=== PATIENT | female | born 1965 | race Caucasian/White ===

== ENCOUNTER 2017-10-27 14:57 | Emergency (ER) | payer SELFPAY ==
[~2017-10-27 14:57] MED LIST: ACE3 PO; ALB18R INH; AMOX-559 PO; AZIT-18 PO; BUTA1CAP36 PO; CHOL100058 PO; CIPR-344 PO; CITA-137 PO; CLON0.5T66 PO; CODE118S5 PO; CYCL10TA29 PO; DIAZ-308 PO; DOXY-179 PO; ESTA2TAB PO; GABA-549 PO; IBUP800T37 PO; LOR5/325 PO; MELA3TAB45 PO; NAPR125O2 PO; NAPR500T31 PO; OMEP40CA48 PO; ONDA4TAB PO; OXYC-856 PO; OXYC-865 PO; PER PO; PRED20TA6 PO; PROM-110 PO; PROM25SU9 RC; PROM5SYR PO; RANI150C17 PO; TRAZ150T8 PO
--- NOTE | 2017-10-27 15:05 | ER Report ---
History and Physical Time Seen By MD: 15:05 HPI/ROS CHIEF COMPLAINT: Heel pain HISTORY OF PRESENT ILLNESS: This is a 51-year-old female who presents to the emergency department with right heel pain. Patient states that over the last several months she's had an increase in right heel pain and has been compensating with her left foot now she has developed some left heel pain as well. 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 Patient has no other complaints no fevers, chills, nausea, vomiting, diarrhea, chest pain or shortness of breath. No open wounds or lesions. Allergies: Coded Allergies: No Known Drug Allergies (Unverified , 10/27/17) Home Meds Active Scripts Metaxalone (SKELAXIN) 800 Mg Tablet, 800 MG PO TID Y for rn, #12 TAB 0 Refills Prov:ALEAH MARY [facility]- 10/27/17 Prednisone (PREDNISONE) 20 Mg Tablet, 20 MG PO BID, #10 TAB Prov:ALEAH MARY [facility]- 10/27/17 Ibuprofen (IBUPROFEN) 800 Mg Tablet, 800 MG PO Q8H@04,12,20, #30 TAB 0 Refills Prov:ARUNA LATHAM DO 09/13/16 Reported Medications Cholecalciferol (Vitamin D3) (VITAMIN D) 1,000 Unit Capsule, 1000 UNIT PO QDAY, CAPSULE 09/05/16 Melatonin (MELATONIN) 3 Mg Tablet.er, 3 MG PO QHS 09/05/16 Ranitidine Hcl (RANITIDINE HCL) 150 Mg Capsule, 150 MG PO TID, CAPSULE 03/31/16 Trazodone Hcl (TRAZODONE HCL) 150 Mg Tablet, 150 MG PO QHS 07/25/14 Discontinued Scripts Acetaminophen/Codeine (TYLENOL #3 (OR EQUIV)) 1 Ea Tab, 1 EA PO Q4-6H for PAIN, #40 TAB 0 Refills Prov:YEISONARUNA 09/13/16 Albuterol Sulfate (VENTOLIN HFA) 18 Gm Inh, 2 PUFF INH Q4-6H Y for SHORTNESS OF BREATH, #1 INH Prov:JAYDEN PETTIT [facility] 04/09/16 Past Medical/Surgical History Patient has a past medical and surgical history of meningitis, migraines, pneumonia, uses tobacco, Heidel hernia, right wrist fracture, thyroid disorder, hysterectomy, tubal ligation. Reviewed Nurses Notes: Yes Hx Smoking: Yes (1PPD) Smoking Status: Current: Every Day Smoker Hx Substance Use Disorder: No Hx Alcohol Use: Yes (RARE) Constitutional Vital Sign - Last 24 Hours 10/27/17 10/27/17 10/27/17 10/27/17 15:01 15:03 15:30 15:57 Temp 97.9 Pulse 97 83 Resp 20 B/P (MAP) 130/87 (101) 130/87 119/83 (95) Pulse Ox 93 91 O2 Delivery Room Air 10/27/17 10/27/17 10/27/17 10/27/17 16:00 16:27 16:30 16:35 Pulse 79 79 B/P (MAP) 126/66 (86) 137/93 (108) Pulse Ox 91 92 10/27/17 17:09 B/P (MAP) 144/106 (119) Physical Exam General appearance: Alert no distress. Respiratory: Chest is non tender, lungs are clear to auscultation. Cardiac: Regular rate and rhythm Musculoskeletal: Right calcaneus pain with palpation. No erythema or cellulitis noted. No crepitus. Mild left heel pain with palpation no crepitus or erythema noted. DIFFERENTIAL DIAGNOSIS: After history and physical exam differential diagnosis was considered for bone spur, stress fracture, plantar fasciitis and osteomyelitis. Medical Decision Making EKG/Imaging Imaging FOOT 3 VIEW LEFT HISTORY: calcaneus pain bilaterally COMPARISON: None FINDINGS: No evidence of acute fracture or dislocation. Bohler angle is well maintained. Base of the 5th metatarsal is intact. TMT joints are well aligned. Small plantar spur. IMPRESSION: 1. No acute osseous abnormality. 2. Small plantar spur. Report Dictated By: Kevin Monge MD at 10/27/2017 4:13 PM Report E-Signed By: Kevin Monge MD at 10/27/2017 4:14 PM WSN:[id number] FOOT 3 VIEW RIGHT HISTORY: calcaneus pain bilaterally COMPARISON: None FINDINGS: No evidence of acute fracture or dislocation. Bohler angle is well maintained. Base of the 5th metatarsal is intact. TMT joints are well aligned. Small plantar spur. IMPRESSION: 1. No acute osseous abnormality. 2. Small plantar spur. Report Dictated By: Kevin Monge MD at 10/27/2017 4:14 PM Report E-Signed By: Kevin Monge MD at 10/27/2017 4:14 PM WSN:[id number] ED Course/Re-evaluation ED Course The patient was admitted to room. A history physical obtained. Differential diagnoses were considered. A 3 view foot x-ray was obtained of the right and left feet. Was noted that the patient does have bone spurs to the calcaneus bilaterally. I did review these results with the patient and placed her on a short course of steroids as well as a muscle relaxer. Patient was instructed to follow-up with podiatry in the next 1-2 weeks. Patient was given one day off work. Patient was encouraged to return to the emergency department for any other concerns worsening symptoms. Patient was also instructed to follow-up with her primary care provider. Patient was in agreement with this plan of care and discharged home. Decision to Disposition Date: October 27, 2017 Decision to Disposition Time: 16:57 Depart Departure Latest Vital Signs Vital Signs Date Time Temp Pulse Resp B/P (MAP) Pulse Ox O2 Delivery O2 Flow Rate FiO2 10/27/17 17:09 144/106 (119) 10/27/17 16:35 79 92 10/27/17 15:03 97.9 20 Room Air Impression: Primary Impression: Bone spur of left foot Additional Impression: Bone spur of right foot Condition: Improved Disposition: HOME OR SELF-CARE Referrals: LOUISE YEPEZ DPCarlos New Scripts Metaxalone (SKELAXIN) 800 Mg Tablet 800 MG PO TID Y for rn, #12 TAB 0 Refills Prov: ALEAH MARY [employer] [facility]- 10/27/17 Prednisone (PREDNISONE) 20 Mg Tablet 20 MG PO BID, #10 TAB Prov: ALEAH MARY [employer]- 10/27/17 Departure Forms: ER Transition Record, Medications Reconciliation, Off Work/ School Form, School or Work Release?: Work Number of days to be released: 1 Patient Portal Information Patient Instructions: How to Give Foot Care (GEN) Additional Instructions: Drink plenty of water. Get plenty of rest. Take the medications as prescribed. Follow up with Podiatry for further evaluation of your feet. Return to the ED for any other concerns or worsening symptoms. Problem Qualifiers ALEAH MARY [employer] ASSIST[employer]-BC October 27, 2017 15:05
--- NOTE | 2017-10-27 16:18 | RADIOLOGY IMAGING REPORT ---
FACILITY: [facility] PATIENT NAME: Pia Angel : 1965 MR: [id number] V: [id number] EXAM DATE: ORDERING PHYSICIAN: ALEAH MARY TECHNOLOGIST: [place] [facility] [place] Patient: Pia Angel : 1965 Visit/Account:[id number] Date of Sevice: 10/27/2017 FOOT 3 VIEW RIGHT HISTORY: calcaneus pain bilaterally COMPARISON: None FINDINGS: No evidence of acute fracture or dislocation. Bohler angle is well maintained. Base of the 5th metatarsal is intact. TMT joints are well aligned. Small plantar spur. IMPRESSION: 1. No acute osseous abnormality. 2. Small plantar spur. Report Dictated By: Kevin Monge MD at 10/27/2017 4:14 PM Report E-Signed By: Kevin Monge MD at 10/27/2017 4:14 PM WSN:[id number]
--- NOTE | 2017-10-27 16:18 | RADIOLOGY IMAGING REPORT ---
FACILITY: [facility] PATIENT NAME: Pia Angel : 1965 MR: [id number] V: [id number] EXAM DATE: ORDERING PHYSICIAN: ALEAH MARY TECHNOLOGIST: Location: [facility] [place] Patient: Pia Angel : 1965 Visit/Account:[id number] Date of Sevice: 10/27/2017 FOOT 3 VIEW LEFT HISTORY: calcaneus pain bilaterally COMPARISON: None FINDINGS: No evidence of acute fracture or dislocation. Bohler angle is well maintained. Base of the 5th metatarsal is intact. TMT joints are well aligned. Small plantar spur. IMPRESSION: 1. No acute osseous abnormality. 2. Small plantar spur. Report Dictated By: Kevin Monge MD at 10/27/2017 4:13 PM Report E-Signed By: Kevin Monge MD at 10/27/2017 4:14 PM WSN:[id number]
[2017-10-27] MEDS ORDERED: PRED20TA6 PO (17:03)
[2017-10-27] MEDS ORDERED: META800T18 PO (17:03)
[2017-10-27 17:09] VITALS: BP 144/106
== END 2017-10-27 17:14 | disposition home or self-care (01) ==
LOC: ER 15:28
DX: M77.9 Enthesopathy, unspecified (principal)
CPT/HCPCS: 99282

== ENCOUNTER 2017-12-21 06:26 | Inpatient (IN) | payer SELFPAY ==
[~2017-12-21] VITALS: Ht 167.6 cm; Wt 100.2 kg
[~2017-12-21 06:26] MED LIST changes: +META800T18 PO
[2017-12-21] MEDS ORDERED: NS(*) 0.9% 1000 ML BAG 1,000 ML IV ONE ×2 (06:50→08:35)
[2017-12-21] MEDS ORDERED: ONDANSETRON 4 MG/2 ML VIAL IVP ONE ×3 (06:50→12:55)
[2017-12-21] MEDS ORDERED: MORPHINE 4 MG/ML SDV IVP ONE (07:35)
[2017-12-21] MEDS ORDERED: IOPAMIDOL 76% 100 ML INFUS BTL 100 ML ONE (07:50)
[2017-12-21 08:13] LABS: PLATELET COUNT, AUTOMATED 244 K/uL (150-450)
--- NOTE | 2017-12-21 08:30 | ER Report ---
History and Physical Time Seen By MD: 08:30 Hx. of Stated Complaint: patient states she has been having abdominal pain and vomiting since 0500. Allergies: Coded Allergies: No Known Drug Allergies (Unverified , 12/21/17) Home Meds Active Scripts Metaxalone (SKELAXIN) 800 Mg Tablet, 800 MG PO TID Y for rn, #12 TAB 0 Refills Prov:ALEAH MARY [facility]- 10/27/17 Reported Medications Cholecalciferol (Vitamin D3) (VITAMIN D) 1,000 Unit Capsule, 1000 UNIT PO QDAY, CAPSULE 09/05/16 Melatonin (MELATONIN) 3 Mg Tablet.er, 3 MG PO QHS 09/05/16 Ranitidine Hcl (RANITIDINE HCL) 150 Mg Capsule, 150 MG PO TID, CAPSULE 03/31/16 Trazodone Hcl (TRAZODONE HCL) 150 Mg Tablet, 150 MG PO QHS 07/25/14 Discontinued Scripts Prednisone (PREDNISONE) 20 Mg Tablet, 20 MG PO BID, #10 TAB Prov:ALEAH MARY [facility]- 10/27/17 Ibuprofen (IBUPROFEN) 800 Mg Tablet, 800 MG PO Q8H@04,12,20, #30 TAB 0 Refills Prov:ARUNA LATHAM DO 09/13/16 Hx Smoking: Yes (1PPD) Smoking Status: Current: Every Day Smoker Hx Substance Use Disorder: No Hx Alcohol Use: Yes (RARE) Constitutional Vital Sign - Last 24 Hours 12/21/17 12/21/17 12/21/17 12/21/17 06:30 06:31 07:14 07:19 Temp 98.1 Pulse 87 Resp 28 B/P (MAP) 162/91 (114) 126/96 (106) Pulse Ox 92 96 12/21/17 12/21/17 12/21/17 12/21/17 08:32 08:49 09:00 09:05 Pulse 66 70 B/P (MAP) 122/64 (83) 122/72 (89) Pulse Ox 98 96 12/21/17 12/21/17 12/21/17 09:30 10:00 10:05 Pulse 67 B/P (MAP) 103/78 (86) 141/102 (115) Pulse Ox 100 Intake and Output 12/21/17 12/21/17 12/22/17 14:59 22:59 06:59 Intake Total 1000 ml Balance 1000 ml Medical Decision Making Data Points Result Diagram: 12/21/17 0756 12/21/17 0756 Laboratory Hematology Test 12/21/17 07:56 12/21/17 08:34 12/21/17 12:00 Red Blood Count 5.50 M/uL (4.17-5.56) Mean Corpuscular Volume 83.7 fL (80.0-96.0) Mean Corpuscular Hemoglobin 28.7 pg (26.0-33.0) Mean Corpuscular Hemoglobin Concent 34.3 g/dL (32.0-36.0) Red Cell Distribution Width 14.4 % (11.5-14.5) Mean Platelet Volume 10.0 fL (7.2-11.1) Neutrophils (%) (Auto) 86.6 % (39.4-72.5) Lymphocytes (%) (Auto) 8.4 % (17.6-49.6) Monocytes (%) (Auto) 4.0 % (4.1-12.4) Eosinophils (%) (Auto) 0.6 % (0.4-6.7) Basophils (%) (Auto) 0.4 % (0.3-1.4) Nucleated RBC Relative Count (auto) 0.0 /100WBC Neutrophils # (Auto) 11.3 K/uL (2.0-7.4) Lymphocytes # (Auto) 1.1 K/uL (1.3-3.6) Monocytes # (Auto) 0.5 K/uL (0.3-1.0) Eosinophils # (Auto) 0.1 K/uL (0.0-0.5) Basophils # (Auto) 0.0 K/uL (0.0-0.1) Nucleated RBC Absolute Count (auto) 0.00 K/uL Peripheral Blood Smear No Y/N Sodium Level 146 mmol/L (137-145) Potassium Level 3.3 mmol/L (3.5-5.0) Chloride Level 107 mmol/L (98-107) Carbon Dioxide Level 23 mmol/L (22-31) Blood Urea Nitrogen 11 mg/dl (7-18) Creatinine 0.70 mg/dl (0.52-1.04) Glomerular Filtration Rate Calc > 60.0 Random Glucose 121 mg/dl (75-110) Calcium Level 10.0 mg/dl (8.4-10.2) Total Bilirubin 0.5 mg/dl (0.2-1.3) Aspartate Amino Transf (AST/SGOT) 24 U/L (0-35) Alanine Aminotransferase (ALT/SGPT) 21 U/L (0-56) Alkaline Phosphatase 93 U/L (0-126) Total Protein 7.4 g/dl (6.3-8.2) Albumin 4.3 g/dl (3.5-5.0) Lipase 78 U/L (23-300) Urine Color Yellow Urine Clarity Cloudy Urine pH 7.0 pH (4.8-9.5) Urine Specific Elim 1.024 Urine Protein Negative mg/dL (NEGATIVE) Urine Glucose (UA) Negative mg/dL (NEGATIVE) Urine Ketones Negative mg/dL (NEGATIVE) Urine Blood Negative (NEGATIVE) Urine Nitrite Negative (NEGATIVE) Urine Bilirubin Negative (NEGATIVE) Urine Urobilinogen Negative mg/dL (0.2-1.9) Urine Leukocyte Esterase Trace (NEGATIVE) Urine RBC 1 /HPF (0-2/HPF) Urine WBC 5 /HPF (0-5/HPF) Urine Squamous Epithelial Cells Many /LPF (</=FEW) Urine Amorphous Crystals Few /HPF Urine Bacteria Few /HPF (NONE-FEW) Urine Hyaline Casts Few /LPF (NONE-FEW) Urine Mucus Few /HPF (NONE-FEW) Lactate 1.6 mmol/L (0.7-2.1) Chemistry Test 12/21/17 07:56 12/21/17 08:34 12/21/17 12:00 White Blood Count 13.0 k/uL (4.5-11.0) Red Blood Count 5.50 M/uL (4.17-5.56) Hemoglobin 15.8 g/dL (12.0-16.0) Hematocrit 46.1 % (34.0-47.0) Mean Corpuscular Volume 83.7 fL (80.0-96.0) Mean Corpuscular Hemoglobin 28.7 pg (26.0-33.0) Mean Corpuscular Hemoglobin Concent 34.3 g/dL (32.0-36.0) Red Cell Distribution Width 14.4 % (11.5-14.5) Platelet Count 244 K/uL (150-450) Mean Platelet Volume 10.0 fL (7.2-11.1) Neutrophils (%) (Auto) 86.6 % (39.4-72.5) Lymphocytes (%) (Auto) 8.4 % (17.6-49.6) Monocytes (%) (Auto) 4.0 % (4.1-12.4) Eosinophils (%) (Auto) 0.6 % (0.4-6.7) Basophils (%) (Auto) 0.4 % (0.3-1.4) Nucleated RBC Relative Count (auto) 0.0 /100WBC Neutrophils # (Auto) 11.3 K/uL (2.0-7.4) Lymphocytes # (Auto) 1.1 K/uL (1.3-3.6) Monocytes # (Auto) 0.5 K/uL (0.3-1.0) Eosinophils # (Auto) 0.1 K/uL (0.0-0.5) Basophils # (Auto) 0.0 K/uL (0.0-0.1) Nucleated RBC Absolute Count (auto) 0.00 K/uL Peripheral Blood Smear No Y/N Glomerular Filtration Rate Calc > 60.0 Calcium Level 10.0 mg/dl (8.4-10.2) Total Bilirubin 0.5 mg/dl (0.2-1.3) Aspartate Amino Transf (AST/SGOT) 24 U/L (0-35) Alanine Aminotransferase (ALT/SGPT) 21 U/L (0-56) Alkaline Phosphatase 93 U/L (0-126) Total Protein 7.4 g/dl (6.3-8.2) Albumin 4.3 g/dl (3.5-5.0) Lipase 78 U/L (23-300) Urine Color Yellow Urine Clarity Cloudy Urine pH 7.0 pH (4.8-9.5) Urine Specific Elim 1.024 Urine Protein Negative mg/dL (NEGATIVE) Urine Glucose (UA) Negative mg/dL (NEGATIVE) Urine Ketones Negative mg/dL (NEGATIVE) Urine Blood Negative (NEGATIVE) Urine Nitrite Negative (NEGATIVE) Urine Bilirubin Negative (NEGATIVE) Urine Urobilinogen Negative mg/dL (0.2-1.9) Urine Leukocyte Esterase Trace (NEGATIVE) Urine RBC 1 /HPF (0-2/HPF) Urine WBC 5 /HPF (0-5/HPF) Urine Squamous Epithelial Cells Many /LPF (</=FEW) Urine Amorphous Crystals Few /HPF Urine Bacteria Few /HPF (NONE-FEW) Urine Hyaline Casts Few /LPF (NONE-FEW) Urine Mucus Few /HPF (NONE-FEW) Lactate 1.6 mmol/L (0.7-2.1) Urinalysis Test 12/21/17 08:34 Urine Color Yellow Urine Clarity Cloudy Urine pH 7.0 pH (4.8-9.5) Urine Specific Elim 1.024 Urine Protein Negative mg/dL (NEGATIVE) Urine Glucose (UA) Negative mg/dL (NEGATIVE) Urine Ketones Negative mg/dL (NEGATIVE) Urine Blood Negative (NEGATIVE) Urine Nitrite Negative (NEGATIVE) Urine Bilirubin Negative (NEGATIVE) Urine Urobilinogen Negative mg/dL (0.2-1.9) Urine Leukocyte Esterase Trace (NEGATIVE) Urine RBC 1 /HPF (0-2/HPF) Urine WBC 5 /HPF (0-5/HPF) Urine Squamous Epithelial Cells Many /LPF (</=FEW) Urine Amorphous Crystals Few /HPF Urine Bacteria Few /HPF (NONE-FEW) Urine Hyaline Casts Few /LPF (NONE-FEW) Urine Mucus Few /HPF (NONE-FEW) ED Course/Re-evaluation ED Course Intractable nausea and vomiting Decision to Disposition Date: Dec 21, 2017 Decision to Disposition Time: 14:04 Depart Departure Latest Vital Signs Vital Signs Date Time Temp Pulse Resp B/P (MAP) Pulse Ox O2 Delivery O2 Flow Rate FiO2 12/21/17 10:05 67 100 12/21/17 10:00 141/102 (115) 12/21/17 06:31 98.1 28 Impression: Primary Impression: Nausea & vomiting Condition: Improved Disposition: Admitted from ER Problem Qualifiers Primary Impression: Nausea & vomiting Vomiting type: unspecified Vomiting Intractability: intractable Qualified Codes: R11.2 - Nausea with vomiting, unspecified VIKKI BOSWELL MD Dec 21, 2017 08:30
--- NOTE | 2017-12-21 08:44 | RADIOLOGY IMAGING REPORT ---
FACILITY: [facility] PATIENT NAME: Pia Angel : 1965 MR: [id number] V: [id number] EXAM DATE: ORDERING PHYSICIAN: VIKKI BOSWELL [place]CHN[place] [facility] [place] : 1965 Visit/Account:[id number] Date of Sevice: 12/21/2017 ABDOMEN/PELVIS WITH CONTRAST HISTORY: Diffuse abdominal pain TECHNIQUE: CT abdomen and pelvis with intravenous contrast. One of the following dose optimization techniques was utilized in the performance of this exam: Autom ated exposure control; adjustment of the mA and/or kV according to the patient's size; or use of an i terative reconstruction technique. Specific details can be referenced in the facility's radiology C T exam operational policy. CONTRAST: 100 mL Isovue-[id number]. COMPARISON: CT dated June 29, 2016. FINDINGS: Visualized lung bases: Small hiatal hernia. Otherwise negative. Hepatobiliary: Negative. Spleen: Negative. Adrenals: Left adrenal nodule measuring approximately 3.3 x 1.9 cm, grossly unchanged when measured in the same fashion. While this lesion demonstrated indeterminant density, appearance and stability i s most compatible with a benign adenoma. Pancreas: Negative. Kidneys/: Subcentimeter hypodensity within the right kidney which is too small to characterize how ever grossly unchanged and statistically represents a simple cyst. Interval hysterectomy. Ovaries are not visualized. No adnexal mass. GI: Minimal wall thickening of the transverse and descending colon which is favored related to under distention.. Appendix is unremarkable. Vessels/spaces/nodes: Negative. Bones/soft tissues: Mild degenerative changes within the sacroiliac joints. Moderate degenerative d isc disease at L5-S1. IMPRESSION: 1. No acute findings. Appendix is unremarkable. 2. Minimal wall thickening of the transverse and descending colon which is favored related to underdi stention. 3. Additional incidental/chronic findings, as above. Report Dictated By: Winston Mark MD at 12/21/2017 8:34 AM Report E-Signed By: Winston Mark MD at 12/21/2017 8:41 AM WSN:[id number]
[2017-12-21] MEDS ORDERED: LORazepam 2 MG/ML VIAL IVP ONE (10:00)
[2017-12-21] MEDS ORDERED: MAG HYD/AL HYD/SIMETH 30ML UDC PO ONE (14:30)
[2017-12-21] MEDS ORDERED: LIDOCAINE 2% VISC SLN 15ML UDC PO ONE (14:30)
[2017-12-21] MEDS ORDERED: ATRO/SCOPOL/HYOSCY/PB 5 ML ELX PO ONE (14:30)
[2017-12-21 14:53] VITALS: BP 114/66
[2017-12-21 15:45] VITALS: BP 100/59
[2017-12-21] MEDS ORDERED: MORPHINE 4 MG/ML SDV IVP PRN (15:50)
[2017-12-21] MEDS ORDERED: NAPR500T31 PO (15:55)
[2017-12-21] MEDS ORDERED: TRAZ-156 PO (15:55)
[2017-12-21] MEDS ORDERED: GABA-549 PO (15:55)
[2017-12-21] MEDS ORDERED: METH-284 PO (15:55)
[2017-12-21] MEDS ORDERED: METOPROLOL TART 5 MG/5 ML VIAL IVP ONE (16:05)
[2017-12-21] MEDS ORDERED: HYOSCYAMINE SULF*0.125 MG SUBL SL PRN (16:05)
[2017-12-21] MEDS: PROMETHAZINE 25 MG/ML 1 ML AMP IVP PRN (16:06)
[2017-12-21] MEDS ORDERED: DIAZEPAM 50 MG/10 ML MDV IVP PRN (16:10)
[2017-12-21] MEDS ORDERED: NS(*) 0.9% 1000 ML BAG 1,000 ML IV PRN (16:10)
[2017-12-21] MEDS: PANTOPRAZOLE SOD(*)40 MG VIAL 80 MG in NS(*) 0.9% 100 ML BAG 100 ML IV SCH (16:52)
--- NOTE | 2017-12-21 16:58 | History & Physical ---
History of Present Illness Chief Complaint The patient is a 52 year old female with PMH significant for GERD and small hiatal hernia who presents with severe epigastric abdominal pain radiating into her back since 5am today. History of Present Illness The patient has a history of GERD and hiatal hernia and takes Zantac 150mg tid. She also has arthritis and takes Naproxen 500mg twice daily. She states she has taken this consistently for a couple of years. She denies any previous history of peptic ulcer disease. She is a 1 ppd smoker. She rarely drinks alcohol. She does not know her FH as she is adopted. The patient states that last evening she was in her usual state of health. She woke up this am with severe midepigastric abdominal pain and back pain. This was associated with nausea and vomiting. She denies fever or chills. She denies hematemesis. She could do nothing to ease the pain so presented to [facility] this am for further evaluation. In the ER, the patient was given IV morphine and Zofran with improvement of her symptoms. Once these medications wore off, her symptoms recurred. CT of the abdomen and pelvis was unremarkable for acute issue. Liver, gallbladder and pancreas were normal. CBC showed mild elevation of the WBC with a left shift. Lipase was negative. The patient was recommended for admission for further evaluation and treatment. History Problems: (1) Hiatal hernia Status: Chronic (2) History of pneumonia Status: Resolved (3) Tobacco use Status: Chronic (4) COPD (chronic obstructive pulmonary disease) Status: Chronic (5) Daily headache Status: Chronic (6) Migraines Status: Chronic (7) Hx of meningitis Status: Resolved (8) Hyperthyroidism Status: Chronic (9) Dyssomnia Status: Chronic (10) Degenerative arthritis Status: Chronic (11) Degenerative disc disease at L5-S1 level Status: Chronic (12) Adrenal adenoma Status: Chronic Comment: By CT. (13) GERD (gastroesophageal reflux disease) Status: Chronic (14) Right wrist fracture Status: Resolved (15) History of hysterectomy Status: Resolved (16) History of tubal ligation Status: Resolved Home Meds Reported Medications Gabapentin (GABAPENTIN) 300 Mg Capsule, 600 MG PO BID, CAPSULE 12/21/17 Naproxen (NAPROXEN) 500 Mg Tablet, 500 MG PO BIDBS, TAB 12/21/17 Trazodone Hcl (TRAZODONE HCL) 50 Mg Tablet, 150 MG PO QHS 12/21/17 Methimazole (METHIMAZOLE) 10 Mg Tablet, 10 MG PO Q72H 12/21/17 Cholecalciferol (Vitamin D3) (VITAMIN D) 1,000 Unit Capsule, 1000 UNIT PO QDAY, CAPSULE 09/05/16 Melatonin (MELATONIN) 3 Mg Tablet.er, 3 MG PO QHS 09/05/16 Ranitidine Hcl (RANITIDINE HCL) 150 Mg Capsule, 150 MG PO TID, CAPSULE 03/31/16 Discontinued Reported Medications Trazodone Hcl (TRAZODONE HCL) 150 Mg Tablet, 150 MG PO QHS 07/25/14 Discontinued Scripts Metaxalone (SKELAXIN) 800 Mg Tablet, 800 MG PO TID Y for rn, #12 TAB 0 Refills Prov:[facility]AH [facility]- 10/27/17 Prednisone (PREDNISONE) 20 Mg Tablet, 20 MG PO BID, #10 TAB Prov:[facility]AH [facility]- 10/27/17 Ibuprofen (IBUPROFEN) 800 Mg Tablet, 800 MG PO Q8H@04,12,20, #30 TAB 0 Refills Prov:ARUNA LATHAM DO 09/13/16 Allergies: Coded Allergies: No Known Drug Allergies (Unverified , 12/21/17) Patient History: Patient reports no known family medical history. 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 She is adopted so does not know her medical history. Hx Smoking: Yes (1PPD) Smoking Status: Current: Every Day Smoker Caffeine Intake: Coffee, Soda Caffeine/Cups Per Day: 2-3 cups per day Hx Alcohol Use: Yes (RARE) Alcohol Use: Occassional Hx Substance Use Disorder: No Social Drug Use: Never History of IV Drug Use: No Review of Systems All Systems Reviewed/Normal: Yes, Except as Noted Constitutional: No Fever, No Chills Cardiovascular: No Chest Pain Respiratory: No Shortness of Breath Gastrointestinal: Nausea, Vomiting, Abdominal Pain Genitourinary: No Dysuria Musculoskeletal: Pain (Mid back in center. Associated with abdominal pain.) Psychiatric: Other (Dyssomnia on medication.) Exam Vital Signs Vital Signs Date Time Temp Pulse Resp B/P (MAP) Pulse Ox O2 Delivery O2 Flow Rate FiO2 12/21/17 16:24 51 8 98 Nasal Cannula 3.0 12/21/17 15:45 100/59 (73) 12/21/17 14:53 98.4 General Appearance: Alert, Awake, Other (In distress. Restless and unable to hold still due to pain.) Neuro: No Gross deficits Eyes: PERRLA Cardiovascular: Regular Rate and Rhythm Respiratory: Clear to Auscultation GI: Other (Soft, nondistended. Tender in the midepigastrium to palpation without palpable mass. ) Lymph: Cervical Nodes Benign Extremities: Warm, Perfused Integumentary: Skin Intact without Lesion / Mass, Other (Tattoos.) Psych: Appropriate Mood & Affect Medical Decision Making Data Points Result Diagram: 12/21/1775512/21/17755 Item Value Date Time Lactate 4.5 mmol/L *H 12/21/17 0756 Lactate 1.6 mmol/L 12/21/17 1200 Neutrophils (%) (Auto) 86.6 % H 12/21/17 0756 Lymphocytes (%) (Auto) 8.4 % L 12/21/17 0756 Monocytes (%) (Auto) 4.0 % L 12/21/17 0756 Eosinophils (%) (Auto) 0.6 % 12/21/17 075 Basophils (%) (Auto) 0.4 % 12/21/17755 Nucleated RBC Relative Count (auto) 0.0 /100WBC 12/21/17 0756 Neutrophils # (Auto) 11.3 K/uL H 12/21/17 0756 Lymphocytes # (Auto) 1.1 K/uL L 12/21/17 0756 Monocytes # (Auto) 0.5 K/uL 12/21/17 0756 Eosinophils # (Auto) 0.1 K/uL 12/21/17 0756 Basophils # (Auto) 0.0 K/uL 12/21/17 075 Nucleated RBC Absolute Count (auto) 0.00 K/uL 12/21/17 075 Peripheral Blood Smear No Y/N 12/21/17 075 Urine Color Yellow 12/21/17 0834 Urine Clarity Cloudy 12/21/17 0834 Urine pH 7.0 pH 12/21/17 0834 Urine Specific Mchenry 1.024 12/21/17 0834 Urine Protein Negative mg/dL 12/21/17 0834 Urine Glucose (UA) Negative mg/dL 12/21/17 0834 Urine Ketones Negative mg/dL 12/21/17 0834 Urine Blood Negative 12/21/17 08 Urine Nitrite Negative 12/21/17 08 Urine Bilirubin Negative 12/21/17 0834 Urine Urobilinogen Negative mg/dL 12/21/17 0834 Urine Leukocyte Esterase Trace H 12/21/17 0834 Urine RBC 1 /HPF 12/21/17 0834 Urine WBC 5 /HPF 12/21/17 0834 Urine Squamous Epithelial Cells Many /LPF H 12/21/17 0834 Urine Amorphous Crystals Few /HPF 12/21/17 0834 Urine Bacteria Few /HPF 12/21/17 0834 Urine Hyaline Casts Few /LPF 12/21/17 0834 Urine Mucus Few /HPF 12/21/17 0834 EKG / Imaging Imaging FACILITY: [facility] PATIENT NAME: Pia Angel : 1965 MR: [id number] V: [id number] EXAM DATE: ORDERING PHYSICIAN: VIKKI BOSWELL TECHNOLOGIST: Location: [facility] Patient: Pia Angel : 1965 Visit/Account:[id number] Date of Sevice: 12/21/2017 ABDOMEN/PELVIS WITH CONTRAST HISTORY: Diffuse abdominal pain TECHNIQUE: CT abdomen and pelvis with intravenous contrast. One of the following dose optimization techniques was utilized in the performance of this exam: Automated exposure control; adjustment of the mA and/ or kV according to the patient's size; or use of an iterative reconstruction technique. Specific details can be referenced in the facility's radiology CT exam operational policy. CONTRAST: 100 mL Isovue-370. COMPARISON: CT dated June 29, 2016. FINDINGS: Visualized lung bases: Small hiatal hernia. Otherwise negative. Hepatobiliary: Negative. Spleen: Negative. Adrenals: Left adrenal nodule measuring approximately 3.3 x 1.9 cm, grossly unchanged when measured in the same fashion. While this lesion demonstrated indeterminant density, appearance and stability is most compatible with a benign adenoma. Pancreas: Negative. Kidneys/: Subcentimeter hypodensity within the right kidney which is too small to characterize however grossly unchanged and statistically represents a simple cyst. Interval hysterectomy. Ovaries are not visualized. No adnexal mass. GI: Minimal wall thickening of the transverse and descending colon which is favored related to underdistention.. Appendix is unremarkable. Vessels/spaces/nodes: Negative. Bones/soft tissues: Mild degenerative changes within the sacroiliac joints. Moderate degenerative disc disease at L5-S1. IMPRESSION: 1. No acute findings. Appendix is unremarkable. 2. Minimal wall thickening of the transverse and descending colon which is favored related to underdistention. 3. Additional incidental/chronic findings, as above. Report Dictated By: Winston Mark MD at 12/21/2017 8:34 AM Report E-Signed By: Winston Mark MD at 12/21/2017 8:41 AM [id number] Assessment and Plan Problems: (1) Acute epigastric pain Status: Acute Assessment & Plan: The patient has severe epigastric pain radiating through to her back with negative CT of the abdomen and normal lipase. Suspect peptic ulcer. Will place on Protonix gtt. Will order H. pylori. Will treat acute pain with IV morphine and use Zofran and Phenergan for nausea. Consider upper GI or endoscopy once her pain is controlled. (2) Intractable nausea and vomiting Status: Acute Assessment & Plan: Will treat with IV fluids and antiemetics. (3) COPD (chronic obstructive pulmonary disease) Status: Chronic Assessment & Plan: Will place on oxygen to keep saturations 90% or greater. (4) Hyperthyroidism Status: Chronic Assessment & Plan: She takes methimazole 10mg q 72 hours and took a dose last evening. Will restart when able to take orals. (5) Dyssomnia Status: Chronic Assessment & Plan: She takes OTC melatonin and Trazodone 150mg at home. (6) Degenerative arthritis Status: Chronic Assessment & Plan: She takes Naproxen 500mg bid at home. (7) GERD (gastroesophageal reflux disease) Status: Chronic Assessment & Plan: She is on chronic Zantac 150mg tid. (8) Tobacco use Status: Chronic Assessment & Plan: The patient smokes 1 ppd. Will offer nicotine replacement. Time Spent on Plan of Care: < 30 min Venous Thromboembolism VTE Risk Physician Assess for VTE Risk: Yes Antithrombotics Is Pt On Any Antithrombotics?: Yes Exam Sepsis Risk: Sepsis Risk Problem Qualifiers (1) Intractable nausea and vomiting: Vomiting type: unspecified Qualified Codes: R11.2 - Nausea with vomiting, unspecified POLO MALONE MD Dec 21, 2017 16:58
[2017-12-21] MEDS ORDERED: PANTOPRAZOLE SOD(*)40 MG VIAL 80 MG in NS(*) 0.9% 100 ML BAG 100 ML IVPB ONE (17:00)
[2017-12-21 19:20] VITALS: BP 104/69
[2017-12-21] MEDS ORDERED: KCL/NS* 20 MEQ/1000 ML PREMIX 1,000 ML IV SCH (20:42)
[2017-12-21] MEDS: MORPHINE 2 MG/ML SYR IVP PRN (21:15)
[2017-12-21] MEDS: MAG HYD/AL HYD/SIMETH 30ML UDC PO PRN (21:50)
[2017-12-21] MEDS ORDERED: NICOTINE CARTRIDGE 1 EA PO PRN (22:15)
[2017-12-21] MEDS ORDERED: NICOTINE INH SYSTEM 10 MG/INH INH ONE (22:16)
[2017-12-21 22:46] VITALS: BP 103/65
[2017-12-21] MEDS ORDERED: METHIMAZOLE 10 MG TAB PO ONE (23:25)
[2017-12-22] MEDS: PANTOPRAZOLE SOD(*)40 MG VIAL 80 MG in NS(*) 0.9% 100 ML BAG 100 ML IV SCH (03:11)
[2017-12-22 03:12] VITALS: BP 103/67
[2017-12-22] MEDS: PROMETHAZINE 25 MG/ML 1 ML AMP IVP PRN ×3 (04:22→16:01)
[2017-12-22 07:14] LABS: PLATELET COUNT, AUTOMATED 220 K/uL (150-450)
[2017-12-22] MEDS: MORPHINE 2 MG/ML SYR IVP PRN ×3 (07:15→20:59)
[2017-12-22 07:21] VITALS: BP 153/89
[2017-12-22] MEDS ORDERED: NICOTINE INH SYSTEM 10 MG/INH INH PRN (08:05)
[2017-12-22] MEDS ORDERED: ONDANSETRON 4 MG/2 ML VIAL IVP PRN (08:20)
--- NOTE | 2017-12-22 09:20 | Hospitalist Progress Note ---
Subjective Progress Notes Subjective Still having nausea with dry heaving and stomach/back pain. She has been very tearful with staff. Physical Exam Vital Signs Date Time Temp Pulse Resp B/P (MAP) Pulse Ox O2 Delivery O2 Flow Rate FiO2 12/22/17 07:22 98 12/22/17 07:21 98.3 67 20 153/89 (110) Room Air 12/22/17 03:12 1.0 General Appearance: Other (She awoke easily and appeared to be resting comfortably when asleep. Upon awakening, she appears a bit more uncomfortable) GI: Soft and Non-Tender (Non-distended) Result Diagram: 12/22/17 0652 12/22/1752 Assessment and Plan Problems: (1) Acute epigastric pain Status: Acute Assessment & Plan: The patient has severe epigastric pain radiating through to her back with negative CT of the abdomen and normal lipase. She has a benign abdominal exam. Suspect peptic ulcer. H. pylori negative. She was initially on a Protonix gtt, and will switch to IV bid. Will add Carafate. Treating pain with IV morphine and use Zofran and Phenergan for nausea. Consider upper GI or endoscopy once her pain is controlled. (2) Intractable nausea and vomiting Status: Acute Assessment & Plan: See above. (3) COPD (chronic obstructive pulmonary disease) Status: Chronic Assessment & Plan: Currently, on oxygen to keep saturations 90% or greater. (4) Hyperthyroidism Status: Chronic Assessment & Plan: She takes methimazole 10mg // and 5mg ///, which has been continued (5) Dyssomnia Status: Chronic Assessment & Plan: She takes OTC melatonin and Trazodone 150mg at home. (6) Degenerative arthritis Status: Chronic Assessment & Plan: She takes Naproxen 500mg bid at home, which has been stopped. (7) GERD (gastroesophageal reflux disease) Status: Chronic Assessment & Plan: She is on chronic Zantac 150mg tid. (8) Tobacco use Status: Chronic Assessment & Plan: The patient smokes 1 ppd. Will offer nicotine replacement. Exam Sepsis Risk: No Definite Risk Problem Qualifiers (1) Intractable nausea and vomiting: Vomiting type: unspecified Qualified Codes: R11.2 - Nausea with vomiting, unspecified RUBI FLORES MD Dec 22, 2017 09:20
[2017-12-22] MEDS: SUCRALFATE 1 GM TAB PO SCH ×4 (09:33→20:47)
[2017-12-22] MEDS: PANTOPRAZOLE SOD 40 MG IV VIAL IVP SCH ×2 (09:33→20:47)
[2017-12-22 10:53] VITALS: Ht 167.6 cm; Wt 100.2 kg
--- NOTE | 2017-12-22 11:07 | Medical Nutrition Therapy ---
Nutrition Anthropometrics Height (Inches): 66.00 Height (Calculated Centimeters: 167.398054 Weight (Pounds): 221 Weight (Calculated Kilograms): 100.244 Garry Nutrition Score: Adequate Garry Nutrition Risk Score: 21 Dietary Referral Nutrition Risk Factors: Nutrition Risk Comment: Physical Findings Physical Appearance: Obese BMI 30-39 Skin Appearance Skin Appearance: Edema Edema Location Modifier: Edema Location: Type of Edema: Degree of Edema: Gastrointestinal Symptoms GI Symtoms: Nausea, Appetite Changes Tube Present: Bowel Sounds: Recent Bowel Pattern: Stool Characteristics: Nutritional Diagnosis Nutritional Risk Acuity 2: GI Malabsorption Nutritional Risk Acuity 3: Nausea, GERD Past Medical History: GERD, hiatal hernia, COPD, migraines, hyperthyroid Nutritional Acuity: 2-Moderate Nutrition Diagnosis: Altered GI Function Nutrition Etiology: Malabsorption/Intolerance Nutrition Problem/Etiology/Sym: Altered GI function related to malabsorption as evidenced by epigastric pain and N/V. Adjusted Energy Requirement Re: 1840 ([id number] (HB x 1.3-1.5)) Protein Requirement: 80 Fluid Requirement: 1840 Diet Type: Clear Liquids Nutrition Intervention: Incr diet as tolerated Nutrition Monitoring & Eval RD Patient Assessment Time: [address] Assessment Type: RD Assessment Patient Nutrition Acuity: 2-Moderate Follow Up Date: Dec 25, 2017 Nutritional Comment: 12/22 Pt admitted with epigastric pain and intractable N/V. suspecting peptic ulcer and may do endoscopy when approriate. Pt still experiencing dry heaving. Currently on CL diet with intake of 10% of one meal. Notable labs include K 3.1, glc 116, tot pro 6 and alb 3.4. BMI in obese category. Will cont to monitor clinical progression and diet advancement. -THADDEUS GORDON Dec 22, 2017 11:07
[2017-12-22 11:59] VITALS: BP 123/63
[2017-12-22] MEDS: KCL/NS* 20 MEQ/1000 ML PREMIX 1,000 ML IV SCH (13:45)
[2017-12-22 16:02] VITALS: BP 145/77
[2017-12-22] MEDS ORDERED: SCOPOLAMINE 1.5 MG PATCH TD PRN (16:45)
[2017-12-22] MEDS ORDERED: PATCH REMOVAL 1 EA TP PRN (17:05)
[2017-12-22 19:15] VITALS: BP 154/84
[2017-12-22] MEDS: MAG HYD/AL HYD/SIMETH 30ML UDC PO PRN (20:58)
[2017-12-22] MEDS ORDERED: METHIMAZOLE 10 MG TAB PO SCH (21:00)
[2017-12-22 22:48] VITALS: BP 136/87
[2017-12-23] MEDS: MORPHINE 2 MG/ML SYR IVP PRN ×3 (01:58→23:52)
[2017-12-23 03:18] VITALS: BP 143/73
[2017-12-23] MEDS: KCL/NS* 20 MEQ/1000 ML PREMIX 1,000 ML IV SCH ×2 (03:18→23:53)
--- NOTE | 2017-12-23 05:05 | CONSULTATION ---
EVENT DATE: December 22, 2017 CONSULTING PHYSICIAN Lyssa Mccarthy MD CHIEF COMPLAINT Intractable nausea and vomiting associated with abdominal pain. HISTORY OF PRESENT ILLNESS Pia reports that she awakened yesterday to go to work and started having vomiting. Further, she reports subjective chills but no fever. When this persisted, she presented to [facility]. She states that she has experienced ongoing nausea and vomiting since she was admitted, improved somewhat with the medications, both pain and nausea, but the nausea consistently recurs when the medication wears off. The patient does not have blood in her vomitus. She has not had bloody diarrhea or stools. Her pain in the epigastrium occurs in a band-like fashion across her upper abdomen. Thus far, her diagnostic workup has been fairly unremarkable, but the patient persists with her symptoms. The patient does have a history of a hiatal hernia but no peptic ulcer disease according to her. Ranitidine has been prescribed to her for her hiatal hernia per her assertion. She does take Naprosyn daily for arthritis. She did have blood in her stool four months ago, and was due to be scheduled for a colonoscopy in the near future since she turned 52. The patient denies diarrhea or change in her bowl habits. She has not had any food intolerances. No one else in the family is sick. ALLERGIES No known drug allergies. CURRENT MEDICATIONS 1. Naprosyn. 2. Ranitidine. 3. Melatonin. 4. Gabapentin 5. Vitamin D. PAST MEDICAL HISTORY Significant for hiatal hernia, arthritis and tobacco use. PAST HOSPITALIZATIONS In 2008 for meningitis, 2010 as well as 2013 for pneumonia. PAST SURGICAL HISTORY section, hysterectomy with her ovaries out. No abnormal reactions to anesthesia. No abnormal bleeding or clotting tendencies. No blood thinners except Naprosyn. 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 She lives at home with her son. She does smoke daily. REVIEW OF SYSTEMS Significant for arthritis, sleep disturbances, chills as well as fatigue. Otherwise, her 12-system review is negative. PHYSICAL EXAMINATION GENERAL: The patient is rocking in the bed and obviously uncomfortable. VITAL SIGNS: Temp is 99.1, blood pressure 123/63, pulse 64, respirations 14, pulse ox 94%. HEAD: Normocephalic. OROPHARYNX: Dry mucous membranes. CHEST: Symmetrical expansion with respiration. LUNGS: Clear to auscultation. ABDOMEN: Obese, non tender, without palpable masses, without guarding or rebound, limited somewhat by the size of her abdomen. Pfannenstiel scar, positive bowel sounds, hypoactive. BACK: Symmetrical without deformity. EXTREMITIES: Without cyanosis, clubbing or edema. NEUROLOGICAL: Grossly intact, awake, alert and oriented. SKIN: Tattoos over her skin surface, also acneiform changes at the top of her back. LABORATORY AND RADIOGRAPHIC DATA White blood count now at 16.4. Lipase is within normal limits as are liver function test. Troponin is within normal limits. CT scan of the abdomen is unremarkable for acute disease. Appendix appears to be normal, as does pancreas and gallbladder. Mild thickening of the transverse colon, but doubt this is of significance per radiology report. ANALYSIS AND PLAN Intractable nausea and vomiting: Differential diagnosis considerations are myriad and include PUD, gallbladder disease and pancreatitis among other intra abdominal pathologies. Many of these are not likely in light of her clinical picture. Her symptoms are not responsive to Phenergan and Zofran. I would recommend trying scopolamine, which I have ordered. If the patient persists with nausea and vomiting, I would insert recommend nasogastric tube insertion which I have ordered. The patient probably needs to undergo EGD. I will communicate this to the surgeon coming pulmonology technician tomorrow and leave that decision to his medical judgement and discretion. Also, possibility is that the thickening of the colon wall could represent colitis, which might account for her elevated white blood count although I would expect diarrhea and blood with her stools. It is not clear to me why she is having persistent nausea and vomiting at this time. I would also recommend repeating CBC in the morning MTDD
[2017-12-23] MEDS: SUCRALFATE 1 GM TAB PO SCH ×4 (05:59→20:47)
[2017-12-23 06:25] LABS: PLATELET COUNT, AUTOMATED 197 K/uL (150-450)
[2017-12-23 07:47] VITALS: BP 124/74
[2017-12-23] MEDS ORDERED: KCL (*) 20 MEQ/100 ML PREMIX 100 ML IV ONE ×2 (08:30→14:50)
--- NOTE | 2017-12-23 08:39 | Hospitalist Progress Note ---
Subjective Progress Notes Subjective She reports she has not vomited in three hours, which is an improvement according to the patient. She still has complaints of pain. Patient Complains of: Cardiovascular: No: Chest Pain Respiratory: No: Shortness of Breath Gastrointestinal: Nausea, Vomiting Physical Exam Vital Signs Date Time Temp Pulse Resp B/P (MAP) Pulse Ox O2 Delivery O2 Flow Rate FiO2 12/23/17 07:47 94 Room Air 12/23/17 07:47 98.2 74 20 124/74 (91) 12/22/17 03:12 1.0 Intake and Output 12/24/17 06:59 # Voids 1 General Appearance: Alert, Awake, No Acute Distress Neuro: No Gross deficits Cardiovascular: Regular Rate and Rhythm Respiratory: No Respiratory Distress, Clear to Auscultation GI: Other (Tenderness noted throughout abdomen) Psych: Alert & Oriented X3, Appropriate Mood & Affect Result Diagram: 12/23/1751312/23/17513 Assessment and Plan Problems: (1) Acute epigastric pain Status: Acute Assessment & Plan: The patient has severe epigastric pain radiating through to her back with negative CT of the abdomen and normal lipase. She has a benign abdominal exam. Suspect peptic ulcer. H. pylori negative. She was initially on a Protonix gtt, and will switch to IV bid. Will add Carafate. Treating pain with IV morphine and use Zofran and Phenergan for nausea. Consider upper GI or endoscopy once her pain is controlled. We will add potassium replacements to IV today. We will await surgeons advice for possible EGD. (2) Intractable nausea and vomiting Status: Acute Assessment & Plan: See above. (3) COPD (chronic obstructive pulmonary disease) Status: Chronic Assessment & Plan: Currently, on oxygen to keep saturations 90% or greater. (4) Hyperthyroidism Status: Chronic Assessment & Plan: She takes methimazole 10mg // and 5mg ///, which has been continued (5) Dyssomnia Status: Chronic Assessment & Plan: She takes OTC melatonin and Trazodone 150mg at home. (6) Degenerative arthritis Status: Chronic Assessment & Plan: She takes Naproxen 500mg bid at home, which has been stopped. (7) GERD (gastroesophageal reflux disease) Status: Chronic Assessment & Plan: She is on chronic Zantac 150mg tid. (8) Tobacco use Status: Chronic Assessment & Plan: The patient smokes 1 ppd. Will offer nicotine replacement. Exam Sepsis Risk: No Definite Risk Problem Qualifiers (1) Intractable nausea and vomiting: Vomiting type: unspecified Qualified Codes: R11.2 - Nausea with vomiting, unspecified NAVA MEZA EDUCATION NURSE Dec 23, 2017 08:39
[2017-12-23] MEDS: PANTOPRAZOLE SOD 40 MG IV VIAL IVP SCH ×2 (08:59→20:47)
[2017-12-23] MEDS ORDERED: BENZOCAINE/MENTHOL 1 EACH LOZG PO PRN (10:20)
--- NOTE | 2017-12-23 10:43 | General Surgery Progress Note ---
Subjective Patient Complains of: Respiratory: No: Cough, Shortness of Breath, Wheezing Gastrointestinal: Nausea (Persists.), Vomiting (Somewhat better.), Other (Abd. pain persists, mild, across entire upper abd., began 77 AM with the N/V.) Musculoskeletal: Pain (Back pain - long hx. which predates current sx.) Physical Exam Vital Signs Date Time Temp Pulse Resp B/P (MAP) Pulse Ox O2 Delivery O2 Flow Rate FiO2 12/23/17 07:47 94 Room Air 12/23/17 07:47 98.2 74 20 124/74 (91) 12/22/17 03:12 1.0 Intake and Output 12/24/17 06:59 Intake Total 480 ml Balance 480 ml Intake Oral 480 ml # Voids 2 General Appearance: No Acute Distress Cardiovascular: Regular Rate and Rhythm Respiratory: No Respiratory Distress, Clear to Auscultation GI: Soft and Non-Tender, Other (BS+ & nl. Abd. very soft, NT, no masses.) Result Diagram: 12/23/1751312/23/17513 Leukocytosis has resolved. Assessment and Plan Problems: (1) Abdominal pain Onset Date: 12/21/2017 Status: Acute Assessment & Plan: Must consider PUD or similar, especially given pt's. H/O BID use of naproxen for arthritis. Pt. is scheduled for EGD in AM. (2) Nausea & vomiting Onset Date: 12/21/2017 Status: Acute Assessment & Plan: As above, may be related to PUD. Scheduled for EGD in AM. (3) Hypokalemia Onset Date: ~ 12/21/2017 Assessment & Plan: Down to 2.8 this AM, has received IV supplementation, repeat level pending. Time Spent: < 30 min Exam Sepsis Risk: No Definite Risk Problem Qualifiers (1) Abdominal pain: Abdominal location: upper abdomen, unspecified Qualified Codes: R10.10 - Upper abdominal pain, unspecified (2) Nausea & vomiting: Vomiting type: unspecified Vomiting Intractability: intractable Qualified Codes: R11.2 - Nausea with vomiting, unspecified LOUISA SMITH IV, MD Dec 23, 2017 10:43
--- NOTE | 2017-12-23 11:02 | EKG ---
FACILITY: [facility] [place] PATIENT NAME: KISHORE WEBBER : [id number] MR: [id number] V: [id number] EXAM DATE: ORDERING PHYSICIAN: RUBI FLORES TECHNOLOGIST: ABBY Richmond Reason : Blood Pressure : / mmHG Vent. Rate : 056 BPM Atrial Rate : 056 BPM P-R Int : 136 ms QRS Dur : 098 ms QT Int : 462 ms P-R-T Axes : 014 001 014 degrees QTc Int : 445 ms Sinus bradycardia with sinus arrhythmia Otherwise normal ECG When compared with ECG of 29-JUN-2016 03:45, No significant change was found Confirmed by ALEXANDRIA RODRIGUEZ ([id number]) on 12/24/2017 6:25:30 AM Referred By: MARK Confirmed By:ALEXANDRIA RODRIGUEZ
[2017-12-23 11:16] VITALS: BP 148/81
[2017-12-23 14:55] VITALS: BP 152/87
[2017-12-23] MEDS: MAG HYD/AL HYD/SIMETH 30ML UDC PO PRN (15:25)
[2017-12-23] MEDS ORDERED: MAGNESIUM SUL* 2 GM/50 ML IVPB 50 ML IVPB ONE (17:00)
[2017-12-23 18:45] VITALS: BP 167/95
[2017-12-23] MEDS ORDERED: traZODone HCL 50 MG TAB PO SCH (21:00)
[2017-12-23] MEDS ORDERED: METHIMAZOLE 10 MG TAB PO SCH (21:00)
[2017-12-23 23:27] VITALS: BP 152/87
[2017-12-23] MEDS: KCL (*) 20 MEQ/100 ML PREMIX 100 ML IV SCH (23:52)
[2017-12-24] MEDS ORDERED: APAP/HYDROCODONE 325/5 TAB PO SCH
[2017-12-24] MEDS: KCL (*) 20 MEQ/100 ML PREMIX 100 ML IV SCH (02:56)
[2017-12-24 05:04] VITALS: BP 107/58
[2017-12-24 05:33] LABS: PLATELET COUNT, AUTOMATED 197 K/uL (150-450)
[2017-12-24] MEDS: SUCRALFATE 1 GM TAB PO SCH ×3 (05:47→16:00)
[2017-12-24] MEDS ORDERED: NORMOSOL R SOLN(*) 1000 ML BAG 1,000 ML IV ONE (06:09)
[2017-12-24] MEDS ORDERED: LIDOCAINE/SOD BICARB 8.4% SYR ONE (06:25)
[2017-12-24] MEDS ORDERED: KETAMINE HCL 500 MG/10 ML VIAL ONE (07:15)
[2017-12-24 08:43] VITALS: BP 172/83
[2017-12-24] MEDS ORDERED: PROPOFOL EMUL(*) 10MG/ML 20 ML 60 ML ONE (08:44)
[2017-12-24] MEDS: PANTOPRAZOLE SOD 40 MG IV VIAL IVP SCH (08:57)
--- NOTE | 2017-12-24 09:11 | Hospitalist Progress Note ---
Subjective Progress Notes Subjective She has no complaints this morning. She reports improvement in abdominal pain, as well as nausea and vomiting. Patient Complains of: Cardiovascular: No: Chest Pain Respiratory: No: Shortness of Breath Physical Exam Vital Signs Date Time Temp Pulse Resp B/P (MAP) Pulse Ox O2 Delivery O2 Flow Rate FiO2 12/24/17 08:48 94 Room Air 12/24/17 08:43 98.5 70 16 172/83 (112) 12/22/17 03:12 1.0 Intake and Output 12/25/17 06:59 # Voids 1 General Appearance: Alert, Awake, No Acute Distress, Afebrile Neuro: No Gross deficits Cardiovascular: Regular Rate and Rhythm Respiratory: No Respiratory Distress, Clear to Auscultation GI: Soft and Non-Tender Psych: Appropriate Mood & Affect Result Diagram: 12/24/1750712/24/17507 Assessment and Plan Problems: (1) Peptic ulcer disease Status: Acute Assessment & Plan: She presented with severe epigastric pain radiating through to her back with negative CT of the abdomen and normal lipase. She has a benign abdominal exam. A peptic ulcer was suspected secondary to smoking and NSAID use. H. pylori negative. She was placed on Protonix and Carafate. Treating pain with IV morphine and use Zofran and Phenergan for nausea. An EGD was performed by surgery today. We will advance her diet throughout the day. (2) Intractable nausea and vomiting Status: Acute Assessment & Plan: See above. (3) COPD (chronic obstructive pulmonary disease) Status: Chronic Assessment & Plan: Currently, on oxygen to keep saturations 90% or greater. (4) Hyperthyroidism Status: Chronic Assessment & Plan: She takes methimazole 10mg // and 5mg ///, which has been continued (5) Dyssomnia Status: Chronic Assessment & Plan: She takes OTC melatonin and Trazodone 150mg at home. (6) Degenerative arthritis Status: Chronic Assessment & Plan: She takes Naproxen 500mg bid at home, which has been stopped. (7) GERD (gastroesophageal reflux disease) Status: Chronic Assessment & Plan: She is on chronic Zantac 150mg tid. (8) Tobacco use Status: Chronic Assessment & Plan: The patient smokes 1 ppd. Will offer nicotine replacement. Exam Sepsis Risk: No Definite Risk Problem Qualifiers (1) Intractable nausea and vomiting: Vomiting type: unspecified Qualified Codes: R11.2 - Nausea with vomiting, unspecified NAVA MEZA [facility] Dec 24, 2017 09:11
[2017-12-24 11:01] VITALS: BP 138/78
[2017-12-24 15:58] VITALS: BP 151/90
[2017-12-24] MEDS ORDERED: traMADol 50 MG TAB PO PRN (16:20)
[2017-12-24] MEDS ORDERED: APAP/HYDROCODONE 325/5 TAB PO PRN (18:05)
[2017-12-24] MEDS ORDERED: LOR5/325 PO (18:14)
[2017-12-24] MEDS ORDERED: SUCR1TAB85 PO (18:14)
[2017-12-24] MEDS ORDERED: SCOP1PAT2 TD (18:14)
[2017-12-24] MEDS ORDERED: PANT40TA65 PO (18:14)
--- NOTE | 2017-12-24 18:25 | Hospitalist Depart ---
Discharge Summary Reason for Hosp/Final Diag: (1) Peptic ulcer disease Status: Acute Hospital Course & Plan: She presented with severe epigastric pain radiating through to her back with negative CT of the abdomen and normal lipase. She has a benign abdominal exam. A peptic ulcer was suspected secondary to smoking and NSAID use. H. pylori negative. She was placed on Protonix and Carafate. Treated pain with IV morphine and used Zofran and Phenergan for nausea. An EGD was performed that showed some esophageal inflammation and small gastric ulcers (see the surgical report for official details). There was no evidence of bleeding. She is feeling much better and wants to go home. She will continue the Carafate for a week and the PPI bid for a couple more weeks. Then she can go to daily PPI for at least a month and then could go back to an H2 julia. She is not take NSAIDs. The surgeon recommended follow up in a month and possibly another EGD. (2) Intractable nausea and vomiting Status: Acute Hospital Course & Plan: Improving with the Scopolamine patch and the above treatment. (3) Asymptomatic bacteriuria Status: Acute Hospital Course & Plan: She had a UA with 5 wbc and many squamous epithelial cells. The culture grew E. Coli. However, she doesn't report dysuria. She is afebrile and has a normal WBC. No treatment with antibiotics will be done. (4) COPD (chronic obstructive pulmonary disease) Status: Chronic Hospital Course & Plan: Secondary to smoking. Currently, doing well on room air. (5) Hyperthyroidism Status: Chronic Hospital Course & Plan: She takes methimazole 10mg // and 5mg ///, which has been continued (6) Dyssomnia Status: Chronic Hospital Course & Plan: She takes OTC melatonin and Trazodone 150mg at home. (7) Degenerative arthritis Status: Chronic Hospital Course & Plan: She takes Naproxen 500mg bid at home, which has been stopped. (8) GERD (gastroesophageal reflux disease) Status: Chronic Hospital Course & Plan: She is on chronic Zantac 150mg tid. See above. (9) Tobacco use Status: Chronic Hospital Course & Plan: The patient smokes 1 ppd. Departure Weight (Pounds): 221 Result Diagram: 12/24/17 0508 12/24/17 0508 Item Value Date Time White Blood Count 13.0 k/uL H 12/21/17 0756 White Blood Count 16.4 k/uL H 12/22/17 0652 White Blood Count 10.4 k/uL 12/23/17 0514 White Blood Count 9.0 k/uL 12/24/17 0508 Hemoglobin 14.2 g/dL 12/24/17 0508 Hemoglobin 12.8 g/dL 12/23/17 0514 Hemoglobin 13.2 g/dL 12/22/17 0652 Hemoglobin 15.8 g/dL 12/21/17 0756 Platelet Count 244 K/uL 12/21/17 0756 Platelet Count 220 K/uL 12/22/17 0652 Platelet Count 197 K/uL 12/23/17 0514 Platelet Count 197 K/uL 12/24/17 0508 Neutrophils (%) (Auto) 66.4 % 12/24/17 0508 Neutrophils (%) (Auto) 64.5 % 12/23/17 0514 Neutrophils (%) (Auto) 84.9 % H 12/22/17 06 Neutrophils (%) (Auto) 86.6 % H 12/21/17 0756 Sodium Level 146 mmol/L H 12/21/17 0756 Potassium Level 3.3 mmol/L L 12/21/17 0756 Potassium Level 3.1 mmol/L L 12/22/17 0652 Sodium Level 141 mmol/L 12/22/17 0652 Blood Urea Nitrogen 11 mg/dl 12/21/17 0756 Creatinine 0.70 mg/dl 12/21/17 0756 Blood Urea Nitrogen 8 mg/dl 12/22/17 0652 Creatinine 0.60 mg/dl 12/22/17 0652 Lactate 4.5 mmol/L *H 12/21/17 0756 Lactate 1.6 mmol/L 12/21/17 1200 Random Glucose 121 mg/dl H 12/21/17 0756 Random Glucose 116 mg/dl H 12/22/17 0652 Magnesium Level 1.7 mg/dl 12/22/17 0652 Troponin I < 0.012 ng/ml 12/22/17 0652 Total Bilirubin 0.5 mg/dl 12/21/17 0756 Aspartate Amino Transf (AST/SGOT) 24 U/L 12/21/17 0756 Alanine Aminotransferase (ALT/SGPT) 21 U/L 12/21/17 0756 Alkaline Phosphatase 93 U/L 12/21/17 0756 Total Protein 7.4 g/dl 12/21/17 0756 Albumin 4.3 g/dl 12/21/17 0756 Lipase 78 U/L 12/21/17 0756 Lipase 57 U/L 12/22/17 0652 Potassium Level 2.8 mmol/L *L 12/23/17 0514 Potassium Level 2.7 mmol/L *L 12/23/17 1355 Potassium Level 2.5 mmol/L *L 12/23/17 2237 Potassium Level 3.4 mmol/L L 12/24/17 0508 Random Glucose 88 mg/dl 12/23/17 0514 Random Glucose 118 mg/dl H 12/23/17 1355 Random Glucose 110 mg/dl 12/23/17 2237 Random Glucose 90 mg/dl 12/24/17 0508 Creatinine 0.50 mg/dl L 12/24/17 0508 Blood Urea Nitrogen 2 mg/dl L 12/24/17 0508 Carbon Dioxide Level 26 mmol/L 12/24/17 0508 Chloride Level 104 mmol/L 12/24/17 0508 Blood Urea Nitrogen 3 mg/dl L 12/23/17 2237 Creatinine 0.50 mg/dl L 12/23/17 2237 Creatinine 0.50 mg/dl L 12/23/17 1355 Blood Urea Nitrogen 4 mg/dl L 12/23/17 1355 Blood Urea Nitrogen 6 mg/dl L 12/23/17 0514 Creatinine 0.60 mg/dl 12/23/17 0514 Magnesium Level 2.3 mg/dl H 12/23/17 2237 Magnesium Level 1.7 mg/dl 12/23/17 0514 Biopsy Helicobacter pylori Screen Negative 12/24/17 0755 Helicobacter pylori IgG Antibody Negative 12/22/17 0652 Hepatitis B Surface Antigen Negative 12/21/17 2100 Hepatitis C Antibody Negative 12/21/17 2100 HIV (1&2) Antibody Negative 12/21/17 2100 Urine Leukocyte Esterase Trace H 12/21/17 0834 Urine RBC 1 /HPF 12/21/17 0834 Urine WBC 5 /HPF 12/21/17 0834 Urine Squamous Epithelial Cells Many /LPF H 12/21/17 0834 Urine Amorphous Crystals Few /HPF 12/21/17 0834 Urine Bacteria Few /HPF 12/21/17833 Urine Hyaline Casts Few /LPF 12/21/17833 Urine Mucus Few /HPF 12/21/17833 SPEC #: [id number] PHYLICIA: 12/21/17 STATUS: RAVI REQ #: [id number] RECD: 12/21/17 [facility] DR: POLO MALONE MD SOURCE: [facility] ENTR: 12/21/[address] [facility] [address]: ALICIA: ORDERED: CULT URINE COMMENTS: Has specimen been collected/obtained? Y Comments: Please culture urine obtained in ER Procedure Result Verified URINE CULTURE Final 12/24/17-3990 Organism 1 ESCHERICHIA COLI >100,000 COL/ML ESC COLI M.I.C. RX --------- --- AMPICILLIN >=32 R AMPICILLIN/SULBACTAM 16 I CEFAZOLIN <=4 S CEFTAZIDIME <=1 S CEFTRIAXONE <=1 S CEFEPIME <=1 S CEFOXITIN <=4 S ERTAPENEM <=0.5 S CIPROFLOXACIN <=0.25 S GENTAMICIN <=1 S IMIPENEM <=0.25 S LEVOFLOXACIN <=0.12 S NITROFURANTOIN <=16 S PIPERACILLIN/TAZOBACTAM <=4 S TOBRAMYCIN <=1 S TRIMETHOPRIM/SULFAMETHOXAZOLE <=20 S Imaging Abd/Pelvis CT - 1. No acute findings. Appendix is unremarkable. 2. Minimal wall thickening of the transverse and descending colon which is favored related to underdistention. 3. Additional incidental/chronic findings, as above. EKG Vent. Rate : 056 BPM Atrial Rate : 056 BPM P-R Int : 136 ms QRS Dur : 098 ms QT Int : 462 ms P-R-T Axes : 014 001 014 degrees QTc Int : 445 ms Sinus bradycardia with sinus arrhythmia Otherwise normal ECG When compared with ECG of 29-JUN-2016 03:45, No significant change was found Confirmed by ALEXANDRIA RODRIGUEZ ([id number]) on 12/24/2017 6:25:30 AM Condition: Improved Discharge: Home Discharge Instructions Home Meds Active Scripts Methimazole (METHIMAZOLE) 10 Mg Tablet, 5 MG PO SuTuThSa@2100 for 30 Days, Prov:RUBI FLORES MD 12/24/17 Methimazole (METHIMAZOLE) 10 Mg Tablet, 10 MG PO MoWeFr@2100 for 30 Days, Prov:RUBI FLORES MD 12/24/17 Hydrocodone Bit/Acetaminophen (HYDROCODON-ACETAMINOPHEN 5-325) 1 Each Tablet, 1 EACH PO Q6H Y for pain, #10 TAB Prov:RUBI FLORES MD 12/24/17 Pantoprazole Sodium (PANTOPRAZOLE SODIUM) 40 Mg Tablet.dr, 40 MG PO BID, #60 TAB.SR Prov:RUBI FLORES MD 12/24/17 Sucralfate (CARAFATE) 1 Gm Tablet, 1 GM PO ACHS, #28 Prov:RUBI FLORES MD 12/24/17 Scopolamine (Transderm-Scop) 1 Mg/3 Day Patch.td.3, 1.5 MG TD Q3D Y for NAUSEA, #2 Prov:RUBI FLORES MD 12/24/17 Reported Medications Gabapentin (GABAPENTIN) 300 Mg Capsule, 600 MG PO BID, CAPSULE 12/21/17 Trazodone Hcl (TRAZODONE HCL) 50 Mg Tablet, 150 MG PO QHS 12/21/17 Cholecalciferol (Vitamin D3) (VITAMIN D) 1,000 Unit Capsule, 1000 UNIT PO QDAY, CAPSULE 09/05/16 Melatonin (MELATONIN) 3 Mg Tablet.er, 3 MG PO QHS 09/05/16 Discontinued Reported Medications Naproxen (NAPROXEN) 500 Mg Tablet, 500 MG PO BIDBS, TAB 12/21/17 Ranitidine Hcl (RANITIDINE HCL) 150 Mg Capsule, 150 MG PO TID, CAPSULE 03/31/16 Trazodone Hcl (TRAZODONE HCL) 150 Mg Tablet, 150 MG PO QHS 07/25/14 Discontinued Scripts Metaxalone (SKELAXIN) 800 Mg Tablet, 800 MG PO TID Y for rn, #12 TAB 0 Refills Prov:ANHPRADEEPRAFAELALEAH L [facility]- 10/27/17 Prednisone (PREDNISONE) 20 Mg Tablet, 20 MG PO BID, #10 TAB Prov:ALEAH MARY [facility] 10/27/17 Ibuprofen (IBUPROFEN) 800 Mg Tablet, 800 MG PO Q8H@04,12,20, #30 TAB 0 Refills Prov:ARUNA LATHAM DO 09/13/16 Diet: Regular Activity: As Tolerated Special Instructions: Do not take any NSAID (e.g. ibuprofen, aleve, naprosyn, aspirin, motrin, etc) because it will cause ulcers until cleared by a provider. Go to the ER for worsening nausea/vomiting/black tarry stools/blood in stools Copies to: [facility] Venous Thromboembolism Antithrombotics Is Pt On Any Antithrombotics?: Yes Problem Qualifiers (1) Intractable nausea and vomiting: Vomiting type: unspecified Qualified Codes: R11.2 - Nausea with vomiting, unspecified RUBI FLORES MD Dec 24, 2017 18:25
[2017-12-24] MEDS ORDERED: METH-284 PO ×2 (18:27)
--- NOTE | 2017-12-24 20:58 | OPERATIVE REPORT 1 ---
EVENT DATE: December 24, 2017 SURGEON: Ned Johnston MD ANESTHESIOLOGIST: Caleb Johnson MD ANESTHESIA: Sedation. PREOPERATIVE DIAGNOSES 1. Abdominal pain. 2. Intractable nausea and vomiting. POSTOPERATIVE DIAGNOSES 1. Distal esophagitis with ulcerations. 2. Small hiatal hernia. 3. Peptic ulcer disease. PROCEDURE PERFORMED Esophagogastroduodenoscopy with cold biopsies. ESTIMATED BLOOD LOSS None. SPECIMENS 1. Distal esophagus at GE junction. 2. Distal antrum for CLOtest. 3. Distal antrum for tissue diagnosis. All three were cold biopsies. COMPLICATIONS None. INDICATIONS Persistent abdominal pain with initially intractable nausea and vomiting. FINDINGS Acute inflammation in distal esophagus at the GE junction with multiple small ulcers. No proximal extension of gastric mucosa so as to suggest Clark esophagus. Small hiatal hernia noted. In the antrum, there was a reticular pattern of inflammatory changes, several lines which were depressed into the mucosa. There were also multiple small erosions noted both in the antrum and in the duodenal bulb. DESCRIPTION OF PROCEDURE The patient was brought into the endoscopy room and placed on the endoscopy table in the left lateral decubitus position. A timeout verified the patient's identity, procedure, and other pertinent details. A bite block was put in place along with an OG mask. The gastroscope was then introduced into the posterior pharynx and then easily into the proximal esophagus. The scope was advanced further, and the entire length of the esophagus was seen well. No pathology was noted except at the distal-most portion of the esophagus just proximal to the GE junction where the above-noted findings were seen. Two cold biopsies were taken of this area. The scope was then advanced into the stomach , which was insufflated with CO2. The scope was retroflexed to view the fundus , and no pathology was seen. The scope was then straightened and passed into the antrum where the above-described lines of gastritis as well as erosions were seen in the antrum. The scope was passed through the pylorus easily, and in the duodenal bulb, there were seen multiple erosions, but no ulcerations. The scope was advanced as far as the second portion of the duodenum, and no additional pathology was seen. The scope was then withdrawn into the antrum where cold biopsies of the antral mucosa were taken, two of them, one for the CLOtest and one for tissue diagnosis. The CO2 was then evacuated from the stomach, and the scope was withdrawn. It was slowly withdrawn up the esophagus for a second viewing and, again, no pathology was noted in the esophagus except as described above. The patient tolerated the procedure well. She was taken to recovery in stable condition. RALPH
[2017-12-24] MEDS ORDERED: PANTOPRAZOLE SOD 40 MG TABEC PO SCH ×3 (21:00)
[2017-12-24] MEDS ORDERED: SUCRALFATE 1 GM TAB PO SCH ×2 (21:00)
== END 2017-12-24 18:50 | disposition home or self-care (01) | DRG 382 ==
LOC: ER 06:35 → MED 13:36
PROVIDERS: ADMIT Internal Medicine; ATTEND Internal Medicine
PROC: 0DB38ZX Excision of Lower Esophagus, Via Natural or Artificial Opening Endoscopic, Diagnostic (ICD-10-PCS; principal; 2017-12-21)
DX: K22.10 Ulcer of esophagus without bleeding (principal); K44.9 Diaphragmatic hernia without obstruction or gangrene; K21.9 Gastro-esophageal reflux disease without esophagitis; F17.210 Nicotine dependence, cigarettes, uncomplicated; E87.6 Hypokalemia; J44.9 Chronic obstructive pulmonary disease, unspecified; T39.395A Adverse effect of other nonsteroidal anti-inflammatory drugs [NSAID], initial encounter; E05.90 Thyrotoxicosis, unspecified without thyrotoxic crisis or storm; G47.9 Sleep disorder, unspecified; M51.37 Other intervertebral disc degeneration, lumbosacral region; K29.70 Gastritis, unspecified, without bleeding; D35.00 Benign neoplasm of unspecified adrenal gland; Z90.710 Acquired absence of both cervix and uterus
CPT/HCPCS: 36415; 74177; 81001; 82040; 82247; 82310; 82374; 82435; 82565; 82947; 83605; 83690; 83735; 84075; 84132; 84155; 84295; 84450; 84460; 84484; 84520; 85025; 86677; 86703; 86803; 87077; 87088; 87186; 87340; 88305; 88313; 88344; 93005; C9113; J2060; J2270; J2405; J2550; J2704; J3475; J3480; J3490; J7030; J7050; Q9967

== ENCOUNTER 2017-12-31 15:33 | Emergency (ER) | payer SELFPAY ==
[2017-12-22 10:53] VITALS: Wt 95.3 kg
[~2017-12-31 15:33] MED LIST changes: +METH-284 PO; +PANT40TA65 PO; +SCOP1PAT2 TD; +SUCR1TAB85 PO; +TRAZ50TA34 PO
--- NOTE | 2017-12-31 15:40 | ER Report ---
History and Physical Time Seen By MD: 15:39 HPI/ROS CHIEF COMPLAINT: Heel pain HISTORY OF PRESENT ILLNESS: This is a 52-year-old female who presents to the emergency department for heel pain bilaterally. Patient states that she has bone spurs on both of her heels, has been taking NSAIDs for her arthritis in her hands, was ultimately admitted to the hospital for concerns of a GI bleed and ulcer, she was taken off NSAIDs at this time and instructed not to take anymore NSAIDs. 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 Patient is very tearful, states she had a cortisone injection in her right foot which did not help. She denies fevers, aches, chills, nausea or vomiting. Allergies: Coded Allergies: No Known Drug Allergies (Unverified , 12/21/17) Home Meds Active Scripts Tramadol Hcl (ULTRAM) 50 Mg Tablet, 50-100 MG PO Q4-6H, #20 TAB 0 Refills Prov:ALEAH MARY [employer] 12/31/17 Methimazole (METHIMAZOLE) 10 Mg Tablet, 5 MG PO SuTuThSa@2100 for 30 Days, Prov:RUBI FLORES MD 12/24/17 Methimazole (METHIMAZOLE) 10 Mg Tablet, 10 MG PO MoWeFr@2100 for 30 Days, Prov:RUBI FLORES MD 12/24/17 Pantoprazole Sodium (PANTOPRAZOLE SODIUM) 40 Mg Tablet.dr, 40 MG PO BID, #60 TAB.SR Prov:RUBI FLORES MD 12/24/17 Sucralfate (CARAFATE) 1 Gm Tablet, 1 GM PO ACHS, #28 Prov:RUBI FLORES MD 12/24/17 Reported Medications Gabapentin (GABAPENTIN) 300 Mg Capsule, 600 MG PO BID, CAPSULE 12/21/17 Trazodone Hcl (TRAZODONE HCL) 50 Mg Tablet, 150 MG PO QHS 12/21/17 Cholecalciferol (Vitamin D3) (VITAMIN D) 1,000 Unit Capsule, 1000 UNIT PO QDAY, CAPSULE 09/05/16 Melatonin (MELATONIN) 3 Mg Tablet.er, 3 MG PO QHS 09/05/16 Discontinued Reported Medications Naproxen (NAPROXEN) 500 Mg Tablet, 500 MG PO BIDBS, TAB 12/21/17 Ranitidine Hcl (RANITIDINE HCL) 150 Mg Capsule, 150 MG PO TID, CAPSULE 03/31/16 Discontinued Scripts Hydrocodone Bit/Acetaminophen (HYDROCODON-ACETAMINOPHEN 5-325) 1 Each Tablet, 1 EACH PO Q6H Y for pain, #10 TAB Prov:RUBI FLORES MD 12/24/17 Scopolamine (Transderm-Scop) 1 Mg/3 Day Patch.td.3, 1.5 MG TD Q3D Y for NAUSEA, #2 Prov:RUBI FLORES MD 12/24/17 Past Medical/Surgical History The patient has a past medical and surgical history of migraines, pneumonia, tobacco use, ulcers, hiatal hernia, small bowel extraction no repair, arthritis , wrist fracture, wears glasses, hysterectomy, tubal ligation. Reviewed Nurses Notes: Yes Hx Smoking: Yes (1PPD) Smoking Status: Current: Every Day Smoker Hx Substance Use Disorder: No Hx Alcohol Use: Yes (RARE) Constitutional Vital Sign - Last 24 Hours 12/31/17 12/31/17 15:39 16:32 Temp 98.0 98.2 Pulse 82 78 Resp 16 16 B/P (MAP) 147/89 165/92 (116) Pulse Ox 90 95 O2 Delivery Room Air Room Air Physical Exam General appearance: Alert no distress. Respiratory: Chest is non tender, lungs are clear to auscultation. Cardiac: Regular rate and rhythm Musculoskeletal: Bilateral calcaneal pain with palpation, no crepitus, step-offs , deformities, erythema or other signs of infection. DIFFERENTIAL DIAGNOSIS: After history and physical exam differential diagnosis was considered for calcaneal pain. Medical Decision Making ED Course/Re-evaluation ED Course The patient was admitted to room. A history physical obtained. Differential diagnoses were considered. After a lengthy discussion with the patient we did formulate a plan, she will take Tylenol every 8 hours to help with the inflammation, keep her feet elevated as much as possible when she is not at work. She does have a follow-up appointment scheduled with the [facility] for orthotics. I did tell her that ultimately she'll need follow-up with either [facility] or podiatry for further evaluation of the bone spurs. The patient was in agreement with this. I also sent a prescription over to the patient's pharmacy for Ultram. The patient had no other questions or concerns at this time and was discharged home. Decision to Disposition Date: Dec 31, 2017 Decision to Disposition Time: 16:14 Depart Departure Latest Vital Signs Vital Signs Date Time Temp Pulse Resp B/P (MAP) Pulse Ox O2 Delivery O2 Flow Rate FiO2 12/31/17 16:32 98.2 78 16 165/92 (116) 95 Room Air Impression: Primary Impression: Heel pain, bilateral Condition: Improved Disposition: HOME OR SELF-CARE Referrals: MILTON LUNA MD, TIMOTHY DPM New Scripts Tramadol Hcl (ULTRAM) 50 Mg Tablet 50-100 MG PO Q4-6H, #20 TAB 0 Refills Prov: ALEAH MARY 12/31/17 Patient Instructions: Heel Spur (ED) Additional Instructions: Drink plenty of water. Get plenty of rest. When you're not working please try to keep the feet elevated this will help with the discomfort and inflammation. You can take 1000 mg of Tylenol every 8 hours as needed for pain. Take the tramadol as directed, be aware that this can make you drowsy no operating machinery or working while taking the tramadol. Follow-up with the [facility] as scheduled for the orthotics. Follow-up with either the booth supervisor or the orthopedist for long-term solutions regarding the bone spurs and that heel pain. Return to the emergency department for any other concerns or worsening symptoms. ALEAH MARY Dec 31, 2017 15:40
[2017-12-31] MEDS ORDERED: ACETAMINOPHEN 500 MG TAB PO ONE (16:15)
[2017-12-31] MEDS ORDERED: TRAM-627 PO (16:16)
[2017-12-31 16:32] VITALS: BP 165/92
== END 2017-12-31 16:30 | disposition home or self-care (01) ==
LOC: ER 15:41
DX: M79.672 Pain in left foot (principal); M79.671 Pain in right foot
CPT/HCPCS: 99283

== ENCOUNTER 2018-06-18 00:21 | Day surgery (SDC) | payer OTHER ==
[2017-12-22 10:53] VITALS: Ht 168.9 cm; Wt 95.3 kg
[~2018-06-18] VITALS: Ht 168.9 cm; Wt 95.3 kg
[2018-06-18] VITALS (7 sets, daily range): BP systolic 97–158; BP diastolic 58–94
[~2018-06-18 00:21] MED LIST changes: +HYDR10TA3 PO; +MULT-111; +RANI-366 PO; +TRAM-627 PO
[2018-06-18] MEDS ORDERED: PROPOFOL EMUL(*) 10MG/ML 20 ML 40 ML ONE (06:59)
[2018-06-18] MEDS ORDERED: LIDOCAINE/SOD BICARB 8.4% SYR ID ONE (10:15)
[2018-06-18] MEDS ORDERED: NORMOSOL R SOLN(*) 1000 ML BAG 1,000 ML IV PRN (10:15)
[2018-06-18] MEDS ORDERED: PROPOFOL EMUL(*) 10MG/ML 20 ML 20 ML ONE ×2 (11:10→11:22)
--- NOTE | 2018-06-18 11:33 | NUR ---
1133- PT BROUGHT TO BAY 5, PT IN LL POSITION, HF NC IN PLACE AT 3LPM, PT MAINTAINING SATS, RESPIRATIONS AND AIRWAY, VSS, SBAR REPORT FROM ARELIS TEIXEIRA AND DR. MACIAS, PT UNRESPONSIVE AT THIS TIME 1134- DECREASED O2 TO 2LPM VIA HF NC 1140- SBAR REPORT GIVEN TO Suzette CARTAGENA RN
--- NOTE | 2018-06-18 11:41 | Short(Outpt) Discharge Summary ---
Discharge Summary Reason for Hosp/Final Diag: (1) Colon cancer screening Status: Chronic Hospital Course & Plan: Colonoscopy with polypectomy x6 completed without problems. Departure Discharge to: Home, Self Care Discharge Instructions Home Meds Active Scripts Methimazole (METHIMAZOLE) 10 Mg Tablet, 5 MG PO SuTuThSa@2100 for 30 Days, Prov:RUBI LFORES MD 12/24/17 Methimazole (METHIMAZOLE) 10 Mg Tablet, 10 MG PO MoWeFr@2100 for 30 Days, Prov:RUBI FLORES MD 12/24/17 Reported Medications Multivitamin (One-Daily Multi-Vitamin) 1 Each Tablet, 1 CAP QDAY 05/13/18 Cyclobenzaprine Hcl (CYCLOBENZAPRINE HCL) 10 Mg Tablet, 10 MG PO HS, #9 TAB 05/13/18 Ranitidine Hcl (ZANTAC) 150 Mg Tablet, 300 MG PO TID, TAB 05/13/18 Hydroxyzine Hcl (HYDROXYZINE HCL) 10 Mg Tablet, 10 MG PO HS 05/13/18 Gabapentin (GABAPENTIN) 300 Mg Capsule, 600 MG PO BID, CAPSULE 12/21/17 Trazodone Hcl (TRAZODONE HCL) 50 Mg Tablet, 150 MG PO QHS 12/21/17 Cholecalciferol (Vitamin D3) (VITAMIN D) 1,000 Unit Capsule, 1000 UNIT PO QDAY, CAPSULE 09/05/16 Melatonin (MELATONIN) 3 Mg Tablet.er, 3 MG PO QHS 09/05/16 Diet: Regular Activity: As Tolerated Special Instructions: Your colonoscopy was completed without any problems and your prep was excellent (Good Job!!). I removed 6 polyps from your colon and they were sent to pathology. The blood was likely from hemorrhoids as I didn't find anything else to explain the blood that you saw and polyps don't bleed. My office will call you in the next week or two and let you know what the polyps are and when your next colonoscopy should be (either 3, 5, or 10 years) depending on the pathology results. ALEXANDRIA DAVISON MD Jun 18, 2018 11:41
--- NOTE | 2018-06-18 13:13 | NUR ---
1145: sbar from michelle barragan rn. 1201: pt maintaining o2 sats, moved to ra. 1201: pt requests food 1205: pt given pudding, cheese, and crackers. as well as sprite and coffee. 1230: food and drink tolerated well 1230: pt states she wants to go home, discharge instructions covered with pt and son 1240: orthostatic bp's with no significant change, pt preparing for discharge
== END 2018-06-18 12:45 | disposition home or self-care (01) ==
LOC: OR 00:21
PROVIDERS: ATTEND Surgery
DX: Z12.11 Encounter for screening for malignant neoplasm of colon (principal); D12.5 Benign neoplasm of sigmoid colon; D12.3 Benign neoplasm of transverse colon
CPT/HCPCS: 00811; 45385; 88305; J2704

== ENCOUNTER → 2018-07-22 | Outpatient (CLI) | payer OTHER, BC ==
[2017-12-22 10:53] VITALS: BMI 35.7
--- NOTE | 2018-07-22 17:00 | RADIOLOGY IMAGING REPORT ---
FACILITY: [facility] [place] PATIENT NAME: Pia Angel : 1965 MR: [id number] V: [id number] EXAM DATE: ORDERING PHYSICIAN: EMMA LOPES TECHNOLOGIST: Location: [facility] - [place], [place] Patient: Pia Angel : 1965 Visit/Account:[id number] Date of Sevice: 07/22/2018 Exam type: L-SPINE 2 OR 3 VIEW History: Low back pain worse while sitting Comparison: March 08, 2014 Findings: There arefive nonrib-bearing lumbar-type vertebral bodies present. There is mild disc space narrowin g and small anterior osteophytes at T12-L1 and L1-L2. There is moderate severe disc space narrowing at L5-S1 with degenerative endplate changes. This appears similar to the prior study. Slight increa se in the degenerative facet joint changes at L4-5 and L5-S1.. IMPRESSION: 1. 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 The Most severely affected level is L5-S1. Report Dictated By: Alyx Farias MD at 07/22/2018 4:53 PM Report E-Signed By: Alyx Farias MD at 07/22/2018 4:55 PM WSN:LAMONT
== END ==
LOC: RAD 16:21
PROVIDERS: ATTEND Family Medicine
DX: M47.895 Other spondylosis, thoracolumbar region (principal)
CPT/HCPCS: 72100

== ENCOUNTER → 2018-08-01 | Outpatient (CLI) | payer BC ==
[2017-12-22 10:53] VITALS: BMI 35.7
--- NOTE | 2018-08-07 08:34 | RADIOLOGY IMAGING REPORT ---
FACILITY: [facility] [place] PATIENT NAME: KISHORE WEBBER : [id number] MR: [id number] V: [id number] EXAM DATE: [id number] ORDERING PHYSICIAN: EMMA LOPES TECHNOLOGIST: Yesica Hernadez PROCEDURE:BILATERAL DIGITAL SCREENING MAMMOGRAM WITH CAD ASSISTED INTERPRETATION & 3D TOMOSYNTHESIS COMPARISON:Prior mammograms. INDICATIONS:SCREENING FINDINGS: Scattered fibroglandular densities are present in both breasts. No suspicious masses or calcifications. DIAGNOSTIC CATEGORY 1--NEGATIVE. RECOMMENDATIONS: ROUTINE MAMMOGRAM AND CLINICAL EVALUATION IN 1 YR. IMPRESSION: BIRADS 1: Negative. Dictated by: John Lyman M.D. on 08/01/2018 at 13:45 Transcribed by: BJORN on 08/01/2018 at 14:08 Approved by: Alyx Farias M.D. on 08/07/2018 at 8:33 [facility]
== END ==
LOC: MAMO 01:27
PROVIDERS: ATTEND Family Medicine
DX: Z12.31 Encounter for screening mammogram for malignant neoplasm of breast (principal)
CPT/HCPCS: 77063; 77067

== ENCOUNTER 2018-09-05 18:27 | Emergency (ER) | payer SELFPAY ==
[2017-12-22 10:53] VITALS: Wt 93.0 kg
--- NOTE | 2018-09-05 18:29 | ER Report ---
History and Physical Time Seen By MD: 18:29 HPI/ROS CHIEF COMPLAINT: Right ankle injury HISTORY OF PRESENT ILLNESS: 52-year-old female presents to the ER complaining severe right ankle pain. She describes going down some steps to move her car out of the driveway silicate unload appliances into her house. She notes a severe inversion injury of her right ankle. She notes no popping sensation. There is a superficial abrasion and a lot of ecchymosis noted on the lateral aspect of the foot. Any other injuries. Patient describes 9/10 throbbing pain aggravated by movement. Patient was able to apply some weight on this foot. Allergies: Coded Allergies: No Known Drug Allergies (Unverified , 09/05/18) Home Meds Active Scripts Hydrocodone Bit/Acetaminophen (HYDROCODON-ACETAMINOPHEN 5-325) 1 Each Tablet, 1 EACH PO Q4-6H PRN for PAIN, #14 TAKE ONE TABLET BY MOUTH EVERY 4-6 HOURS NEEDED FOR PAIN Prov:LIVAN ANN DO 09/05/18 Methimazole (METHIMAZOLE) 10 Mg Tablet, 5 MG PO SuTuThSa@2100 for 30 Days, Prov:RUBI FLORES MD 12/24/17 Methimazole (METHIMAZOLE) 10 Mg Tablet, 10 MG PO MoWeFr@2100 for 30 Days, Prov:RUBI FLORES MD 12/24/17 Reported Medications Pantoprazole Sodium (PANTOPRAZOLE SODIUM) 40 Mg Tablet.dr, 40 MG PO QDAY, TAB.SR 09/05/18 Multivitamin (One-Daily Multi-Vitamin) 1 Each Tablet, 1 CAP QDAY 05/13/18 Ranitidine Hcl (ZANTAC) 150 Mg Tablet, 300 MG PO TID, TAB 05/13/18 Gabapentin (GABAPENTIN) 300 Mg Capsule, 300 MG PO TID, CAPSULE 12/21/17 Trazodone Hcl (TRAZODONE HCL) 50 Mg Tablet, 150 MG PO QHS 12/21/17 Cholecalciferol (Vitamin D3) (VITAMIN D) 1,000 Unit Capsule, 1000 UNIT PO QDAY, CAPSULE 09/05/16 Melatonin (MELATONIN) 3 Mg Tablet.er, 3 MG PO QHS 09/05/16 Discontinued Reported Medications Cyclobenzaprine Hcl (CYCLOBENZAPRINE HCL) 10 Mg Tablet, 10 MG PO HS, #9 TAB 05/13/18 Hydroxyzine Hcl (HYDROXYZINE HCL) 10 Mg Tablet, 10 MG PO HS 05/13/18 Past Medical/Surgical History The patient has a past medical and surgical history of migraines, pneumonia, tobacco use, ulcers, hiatal hernia, small bowel extraction no repair, arthritis, wrist fracture, wears glasses, hysterectomy, tubal ligation. Reviewed Nurses Notes: Yes Old Medical Records Reviewed: Yes Hx Smoking: Yes (1PPD X 35) Smoking Status: Current: Every Day Smoker Hx Substance Use Disorder: No Hx Alcohol Use: Yes (RARE) Constitutional Vital Sign - Last 24 Hours 09/05/18 09/05/18 09/05/18 09/05/18 18:27 18:32 18:32 18:57 Temp 98.8 Pulse 93 120 92 Resp 24 B/P (MAP) 156/85 156/85 (108) Pulse Ox 93 92 93 93 O2 Delivery Room Air 09/05/18 19:00 B/P (MAP) 121/67 (85) Pulse Ox 93 Physical Exam General appearance: Alert no distress. Respiratory: Chest is non tender, lungs are clear to auscultation. Cardiac: Regular rate and rhythm Extremities: Examination of the right lower extremity reveals a neurovascularly intact foot. There is lateral soft tissue swelling and ecchymosis. There is a tiny abrasion. There is no tenderness over the base of the left 5th metatarsal. All digits are neurovascularly intact. There is some decreased range of motion at the ankle. There is no tenderness on palpation of the martel or calf muscle. Achilles tendon appears intact DIFFERENTIAL DIAGNOSIS: After history and physical exam differential diagnosis was considered for sprain, strain, fracture, dislocation, contusion Medical Decision Making EKG/Imaging Imaging X-ray: Right ankle, 3 views was obtained. I viewed the images myself on the PACS system. My interpretation of the images is: No fracture no dislocation or malalignment. [The radiologist interpretation had no clinically significant variation from this interpretation]. ED Course/Re-evaluation ED Course Patient was admitted to an examination room. H&P was done. The differential diagnoses was considered. On conical examination. There is lateral swelling and ecchymosis of the right ankle. Insisted with ankle sprain. There is no gross deformity. All digits are neurovascularly intact. There is no tenderness compression of the forefoot. Diagnostic x-rays of the ankle are performed and are noted to be unremarkable. Results discussed with the patient. She's placed in a Walker boot for support and protection. She is advised ibuprofen 600 mg 3 times daily. She's given a limited supply of Lortab for temporary pain relief. Decision to Disposition Date: Sep 05, 2018 Decision to Disposition Time: 18:54 Depart Departure Latest Vital Signs Vital Signs Date Time Temp Pulse Resp B/P (MAP) Pulse Ox O2 Delivery O2 Flow Rate FiO2 09/05/18 19:00 121/67 (85) 93 09/05/18 18:57 92 09/05/18 18:32 98.8 24 Room Air Impression: Primary Impression: Severe sprain of right ankle Condition: Improved Disposition: HOME OR SELF-CARE Referrals: PHYLLIS KWAN MD, FARRUKH MD New Scripts Hydrocodone Bit/Acetaminophen (HYDROCODON-ACETAMINOPHEN 5-325) 1 Each Tablet 1 EACH PO Q4-6H PRN for PAIN, #14 TAKE ONE TABLET BY MOUTH EVERY 4-6 HOURS NEEDED FOR PAIN Prov: LIVAN ANN DO 09/05/18 Patient Instructions: Ankle Sprain (ED) Additional Instructions: Elevate and apply ice packs to your ankle, 3 or 4 times a day, 30-60 minutes in duration Follow-up with your primary care if unimproved in 3-5 days Problem Qualifiers Primary Impression: Severe sprain of right ankle Encounter type: initial encounter Qualified Codes: S93.401A - Sprain of unspecified ligament of right ankle, initial encounter LIVAN ANN DO Sep 05, 2018 18:29
[2018-09-05] MEDS ORDERED: DIPHTH/TETANUS/ACEL. PERTUSSIS IM ONLY ONE (18:35)
[2018-09-05] MEDS ORDERED: APAP/HYDROCODONE 325/5 TAB PO ONE (18:35)
[2018-09-05] MEDS ORDERED: PANT40TA65 PO (18:37)
[2018-09-05 19:00] VITALS: BP 121/67
--- NOTE | 2018-09-05 19:16 | RADIOLOGY IMAGING REPORT ---
FACILITY: [facility] PATIENT NAME: Pia Angel : 1965 MR: [id number] V: [id number] EXAM DATE: ORDERING PHYSICIAN: LIVAN ANN TECHNOLOGIST: Location: [facility] - [place] Patient: Pia Angel : 1965 Visit/Account:[id number] Date of Sevice: 09/05/2018 ANKLE 3 VIEW MIN RIGHT COMPARISONS: None. ADDITIONAL PERTINENT HISTORY: Fall with swelling and abrasion. FINDINGS: Osseous structures: Moderate size plantar calcaneal spur. No bony fractures. Joint spaces: Negative. Surrounding soft tissues: Lateral malleolar soft tissue swelling. IMPRESSION: 1. Lateral malleolar soft tissue swelling. 2. No underlying bony fracture noted about the right ankle. Report Dictated By: Angel Gomez MD at 09/05/2018 7:11 PM Report E-Signed By: Angel Gomez MD at 09/05/2018 7:12 PM [id number]
[2018-09-05] MEDS ORDERED: LOR5/325 PO (19:20)
[2018-09-05] MEDS ORDERED: ACET/HYDROC 5/325MG TH ER ONLY 2 TAB/BOTTLE PO ONE (19:35)
== END 2018-09-05 19:41 | disposition home or self-care (01) ==
LOC: ER 18:31
DX: S90.811A Abrasion, right foot, initial encounter (principal); S93.401A Sprain of unspecified ligament of right ankle, initial encounter
CPT/HCPCS: 90471; 90715; 99283

== ENCOUNTER 2018-09-09 13:15 | Emergency (ER) | payer SELFPAY ==
[2017-12-22 10:53] VITALS: Wt 93.0 kg
--- NOTE | 2018-09-09 13:30 | ER Report ---
History and Physical Time Seen By MD: 13:29 Hx. of Stated Complaint: pt states ankle injury is getting worse from saturday HPI/ROS CHIEF COMPLAINT: Previous right ankle injury that is not improving. HISTORY OF PRESENT ILLNESS: 52 year old female presents to ED with worsening right ankle pain. Patient was seen in the ED on Saturday after injuring the right ankle while moving boxes. Reports she stepped down and the ankles inv erted. Patient had x-ray in the ED Saturday that was negative. Reports 7 out of 10 sharp pain when moving her ankles located circumstantially around her ankle and medially side of her foot. Patient has a dull pain with no movement. Patient was given lortab for the pain in the ED on Saturday, but patient reports she has not had any pain relief. Reports bruising has worsened over the past couple of days extending down the medial aspect of her foot and spreading up her ankle toward her calf. Reports swelling has increased over the past couple of days as well. Reports to icing her ankle 3 times a day. REVIEW OF SYSTEMS: Constitutional: Denies fevers. Respiratory: No cough, no dyspnea. Cardiovascular: No chest pain, no palpitations. Gastrointestinal: No vomiting, no abdominal pain. Musculoskeletal: No back pain. Reports right ankle pain with increased swelling and bruising as noted above. Allergies: Coded Allergies: No Known Drug Allergies (Unverified , 09/05/18) Home Meds Active Scripts Oxycodone Hcl/Acetaminophen (PERCOCET 5-325 MG TABLET) 1 Each Tablet, 1 EACH PO Q4-6H PRN for PAIN, #12 TAB Prov:JAYDEN PETTIT 09/09/18 Hydrocodone Bit/Acetaminophen (HYDROCODON-ACETAMINOPHEN 5-325) 1 Each Tablet, 1 EACH PO Q4-6H PRN for PAIN, #14 TAKE ONE TABLET BY MOUTH EVERY 4-6 HOURS NEEDED FOR PAIN Prov:LIVAN ANN DO 09/05/18 Methimazole (METHIMAZOLE) 10 Mg Tablet, 5 MG PO SuTuThSa@2100 for 30 Days, Prov:RUBI FLORES MD 12/24/17 Methimazole (METHIMAZOLE) 10 Mg Tablet, 10 MG PO MoWeFr@2100 for 30 Days, Prov:RUBI FLORES MD 12/24/17 Reported Medications Pantoprazole Sodium (PANTOPRAZOLE SODIUM) 40 Mg Tablet.dr 40 MG PO QDAY, TAB.SR 09/05/18 Multivitamin (One-Daily Multi-Vitamin) 1 Each Tablet, 1 CAP QDAY 05/13/18 Ranitidine Hcl (ZANTAC) 150 Mg Tablet, 300 MG PO TID, TAB 05/13/18 Gabapentin (GABAPENTIN) 300 Mg Capsule, 300 MG PO TID, CAPSULE 12/21/17 Trazodone Hcl (TRAZODONE HCL) 50 Mg Tablet, 150 MG PO QHS 12/21/17 Cholecalciferol (Vitamin D3) (VITAMIN D) 1,000 Unit Capsule, 1000 UNIT PO QDAY, CAPSULE 09/05/16 Melatonin (MELATONIN) 3 Mg Tablet.er, 3 MG PO QHS 09/05/16 Discontinued Reported Medications Cyclobenzaprine Hcl (CYCLOBENZAPRINE HCL) 10 Mg Tablet, 10 MG PO HS, #9 TAB 05/13/18 Hydroxyzine Hcl (HYDROXYZINE HCL) 10 Mg Tablet, 10 MG PO HS 05/13/18 Past Medical/Surgical History Past medical history significant for meningitis 2010, migraines as a teenager, pneumonia 2013, gastic ulcers, GERD due to hiatal hernia, arthritis, right wrist fracture, graves disease. Past surgical history significant for colonoscopy with polyp removal, hysterectomy 2018, and tubal ligation 1997. Reviewed Nurses Notes: Yes Hx Smoking: Yes (1PPD X 35) Smoking Status: Current: Every Day Smoker Hx Substance Use Disorder: No Hx Alcohol Use: Yes (RARE) Constitutional Vital Sign - Last 24 Hours 09/09/18 09/09/18 09/09/18 09/09/18 13:20 13:21 13:25 13:30 Temp 99.3 Pulse 93 Resp 16 B/P (MAP) 125/99 (108) 125/99 127/82 (97) 129/79 (96) Pulse Ox 93 O2 Delivery Room Air 09/09/18 09/09/18 09/09/18 09/09/18 13:45 14:00 14:30 14:45 Pulse 86 85 B/P (MAP) 135/80 (98) 143/89 (107) Pulse Ox 92 90 09/09/18 09/09/18 09/09/18 09/09/18 14:50 15:00 15:20 15:30 Pulse 80 70 B/P (MAP) 118/77 (91) 129/82 (98) Pulse Ox 92 90 09/09/18 09/09/18 15:50 16:00 Pulse 92 B/P (MAP) 147/81 (103) Pulse Ox 92 Physical Exam General Appearance: The patient is alert, has no immediate need for airway protection and no current signs of toxicity. [ ] Eyes: Pupils equal and round no injection. Respiratory: Chest is non tender, lungs are clear to auscultation. Cardiac: regular rate and rhythm Gastrointestinal: Abdomen is soft and non tender, no masses, bowel sounds normal. Musculoskeletal: Swelling noted to medial and lateral aspects of right ankle. Bruising noted on lateral and medial aspects of the ankle, and dorsal side of her foot near the distal end of the metatarsals. Tenderness to palpation at mid arch of plantar surface. Tenderness to palpation of the anterior aspect of the ankle as well as the lateral and medial malleolus. Patient unable to flex, extend, rekha, invert ankle. Skin: No rashes or lesions. Patient has two superficial wounds to the lateral side of her ankles that was caused by her right ankle injury. Reports she scraped her skin across the ground when she twisted her ankle. No drainage, pus, or red streaks noted around wounds. Patient reports the wounds have not changed in appearance since Saturday. DIFFERENTIAL DIAGNOSIS: After history and physical exam differential diagnosis was considered for right ankle sprain, right tibia fracture, right fibula fracture, tarsal fracture, calcaneus fracture. Medical Decision Making EKG/Imaging Imaging Foot CT: FINDINGS: With respect to the hindfoot, there is an osteochondral lesion involving the lateral talar dome. See today's ankle CT report for further detail and recommen dations. There is a small tibiotalar joint effusion. The middle and posterior subtalar joints are normal. With respect to the calcaneus, there is a small to intermediate heel spur. There is a minimally displaced fracture involving the anterior process of the calcaneus. This is better seen on the foot CT images than on the ankle CT images. This appears minimally distracted and is seen along the lateral margin of the anterior process. No other calcaneal fracture. With respect to the midfoot, talonavicular and calcaneocuboid joints are intact. Navicular cuneiform and tarsometatarsal joints are normal. No acute-appearing midfoot fracture or joint centered abnormality is seen. With respect to the forefoot, no evidence of metatarsal fracture. The metatarsophalangeal joints are normal. With respect to the soft tissues, there is mild dorsal soft tissue swelling seen at the midfoot which is continuous with the hindfoot swelling. The intrinsic musculature of the foot is normal in bulk. IMPRESSION: 1. Acute, minimally displaced fracture involving the anterior process of the right calcaneus. 2. Osteochondral lesion involving the lateral talar dome. See today's ankle report for further details and recommendations. 3. Heel spur. 4. Mild soft tissue swelling along the dorsal midfoot which is continuous with the hindfoot swelling. Ankle CT: Findings: There is a tiny avulsion type fracture identified involving the distal tip of the medial malleolus along its anterior margin. This may be acute if there has been no previous medial ankle trauma. No other fracture of the distal tibia. No acute fracture is seen of the distal fibula. At the tibiotalar joint, there is a fairly well circumscribed joint centered abnormality involving the lateral talar dome. With computed tomography this is consistent with an osteochondral lesion that measures up to 1.0 x 0.6 cm in size. There is some focal concavity in this location. No definitive joint body is seen. There is a small tibiotalar joint effusion. This is age indeterminant. MRI could be useful for further characterization and to evaluate the stability of the overlying articular cartilage. No other joint centered abnormality at the tibiotalar joint. No evidence of acute hindfoot fracture. The middle and posterior subtalar joints are normal. There is an intermediate heel spur. Minimal Achilles insertional ossifications are seen on the calcaneus. The included midfoot joints and the midfoot are unremarkable. With respect to the soft tissues, there is lateral greater than medial soft tissue swelling at the ankle. No well-defined hematoma. IMPRESSION: 1. Tiny avulsion type fracture involving the anterior margin of the distal portion of the right tibia medial malleolus. 2. CT findings most consistent with an osteochondral lesion involving the lateral talar dome with measurements as above. No definite joint body is seen within the tibiotalar joint. If clinically indicated, MRI could be done for further characterization and to evaluate the overlying articular cartilage for stability. 3. Heel spur. 4. Lateral greater than medial soft tissue swelling at the right ankle. ED Course/Re-evaluation ED Course Patient admitted to an exam room, history and physical obtained, and differential diagnoses considered. Patient was seen in the ED on Saturday after ankle injury that occurred while moving boxes. Patient stepped down and her foot inverted. Ankle x-rays were taken that were negative. Patient was sent home with a boot and lortab for pain. Patient states that since Saturday, her swelling and bruising has worsened, pain has not improved, and her ankle mobility has worsened due to the pain. Patient reports she is unable to flex and extend her ankle, nor rekha or invert. Patient reports the Lortab has not helped with the pain. Swelling noted to medial and lateral aspects of right ankle. Bruising noted on lateral and medial aspects of the ankle, and dorsal side of her foot near the distal end of the metatarsals. Tenderness to palpation at mid arch of plantar surface. Tenderness to palpation of the anterior aspect of the ankle as well as the lateral and medial malleolus. CT scan of ankle and foot ordered. Patient given percocet for the pain. CT scan with evidence of avulsion type fracture to anterior margin of distal portion of right tibia medial malleolus. CT also showed acute, minimally displaced fracture involving the anterior proce ss of the right calcaneus. Orthopedics were consulted. Dr. Case instructed to place patient in aashish-faustin splint. Due to no insurance, patient is to follow- up with the [facility] this week. Aashish-faustin splint placed on patient with right post-op shoe. Patient reports that it does not feel comfortable but will attempt to wear it. Percocet prescription given for pain relief. Patient is agreeable to plan of care. Patient did return to the emergency room later in the evening. Patient states she was unable to tolerate the splint was placed. Patient requested that we remove the splint and returned her to walking boot. That was done at her request. She is to follow-up with the [facility] and ultimately Dr. Ambrocio through the [facility]. Patient verbalized understanding and agreement with plan. Decision to Disposition Date: Sep 09, 2018 Decision to Disposition Time: 15:57 Depart Departure Latest Vital Signs Vital Signs Date Time Temp Pulse Resp B/P (MAP) Pulse Ox O2 Delivery O2 Flow Rate FiO2 09/09/18 16:00 147/81 (103) 09/09/18 15:50 92 92 09/09/18 13:21 99.3 16 Room Air Impression: Primary Impression: Calcaneal fracture Additional Impression: Avulsion fracture of medial malleolus Condition: Improved Disposition: HOME OR SELF-CARE New Scripts Oxycodone Hcl/Acetaminophen (PERCOCET 5-325 MG TABLET) 1 Each Tablet 1 EACH PO Q4-6H PRN for PAIN, #12 TAB Prov: WILVERJAYDEN FNP 09/09/18 Patient Instructions: Avulsion Fracture, Ankle, Calcaneal Fracture (ED) Additional Instructions: Limit activity by pain. Ice the ankle through the splint; 2-3 times a day for 20-30 minutes. If the splint is feeling too tight you may loosen the bony wrap and rewrap it. Follow up with [facility], call tomorrow to make an appointment. Keep the splint dry, wrap it with a bag and tape to keep the water out. Return to the ER with uncontrollable pain or numbness to the foot. You may take Ibuprofen as needed for pain in addition to the pain medication. Don't take any additional Tylenol while on the pain medication. DATA TRANSCRIBER/PA consult with MD: Verbally MD Consult Note: Dr. Quevedo consulted. Dr. Quevedo instructed to place patient is a aashish-faustin splint. Problem Qualifiers Primary Impression: Calcaneal fracture Encounter type: initial encounter Calcaneus location: anterior process Fracture type: closed Fracture alignment: displaced Laterality: right Qualified Codes: S92.021A - Displaced fracture of anterior process of right calcaneus, initial encounter for closed fracture Additional Impression: Avulsion fracture of medial malleolus Encounter type: initial encounter Fracture type: closed Laterality: right Qualified Codes: S82.51XA - Displaced fracture of medial malleolus of right tibia, initial encounter for closed fracture WILVERMADAYLaya GREEN Sep 09, 2018 13:30
--- NOTE | 2018-09-09 15:18 | RADIOLOGY IMAGING REPORT ---
FACILITY: [facility] PATIENT NAME: Pia Angel : 1965 MR: [id number] V: [id number] EXAM DATE: [id number] ORDERING PHYSICIAN: JAYDEN PETTIT TECHNOLOGIST: [place] [facility] [place]: Pia Angel : 1965 Visit/Account:[id number] Date of Sevice: 09/09/2018 CT of the right ankle Indication: Fall. Foot and ankle pain. Comparison: Plain films 09/05/2018 are reviewed. Technique: Axial CT images were obtained through the right ankle. Reformatted coronal and sagittal im ages were reviewed. One of the following dose optimization techniques was utilized in the performance of this exam: Autom ated exposure control; adjustment of the mA and/or kV according to the patient's size; or use of an i terative reconstruction technique. Specific details can be referenced in the facility's radiology C T exam operational policy. Findings: There is a tiny avulsion type fracture identified involving the distal tip of the medial malleolus al hebert its anterior margin. This may be acute if there has been no previous medial ankle trauma. No othe r fracture of the distal tibia. No acute fracture is seen of the distal fibula. At the tibiotalar joint, there is a fairly well circumscribed joint centered abnormality involving th e lateral talar dome. With computed tomography this is consistent with an osteochondral lesion that m easures up to 1.0 x 0.6 cm in size. There is some focal concavity in this location. No definitive li nt body is seen. There is a small tibiotalar joint effusion. This is age indeterminant. MRI could be useful for further characterization and to evaluate the stability of the overlying articular cartilag e. No other joint centered abnormality at the tibiotalar joint. No evidence of acute hindfoot fracture. The middle and posterior subtalar joints are normal. There is an intermediate heel spur. Minimal Achilles insertional ossifications are seen on the calcaneus. The included midfoot joints and the midfoot are unremarkable. With respect to the soft tissues, there is lateral greater than medial soft tissue swelling at the an kle. No well-defined hematoma. IMPRESSION: 1. Tiny avulsion type fracture involving the anterior margin of the distal portion of the right tibia medial malleolus. 2. CT findings most consistent with an osteochondral lesion involving the lateral talar dome with alvaro surements as above. No definite joint body is seen within the tibiotalar joint. If clinically indicat ed, MRI could be done for further characterization and to evaluate the overlying articular cartilage for stability. 3. Heel spur. 4. Lateral greater than medial soft tissue swelling at the right ankle. Report Dictated By: Chase Urbina at 09/09/2018 3:03 PM Report E-Signed By: Chase Urbina at 09/09/2018 3:13 PM WSN:[id number]
--- NOTE | 2018-09-09 15:23 | RADIOLOGY IMAGING REPORT ---
FACILITY: [facility] PATIENT NAME: Pia Angel : 1965 MR: [id number] V: [id number] EXAM DATE: ORDERING PHYSICIAN: JAYDEN PETTIT TECHNOLOGIST: Location: [facility] [place] Patient: Pia Angel : 1965 Visit/Account:[id number] Date of Sevice: 09/09/2018 CT of the right foot INDICATION: Foot pain. Recent fall. COMPARISON: Examination reviewed in conjunction with today's ankle CT scan. Technique: Axial CT images were obtained through the right foot. Reformatted coronal and sagittal im ages were reviewed. One of the following dose optimization techniques was utilized in the performance of this exam: Autom ated exposure control; adjustment of the mA and/or kV according to the patient's size; or use of an i terative reconstruction technique. Specific details can be referenced in the facility's radiology C T exam operational policy. FINDINGS: With respect to the hindfoot, there is an osteochondral lesion involving the lateral talar dome. See today's ankle CT report for further detail and recommendations. There is a small tibiotalar joint eff usion. The middle and posterior subtalar joints are normal. With respect to the calcaneus, there is a small to intermediate heel spur. There is a minimally displ aced fracture involving the anterior process of the calcaneus. This is better seen on the foot CT izzy ges than on the ankle CT images. This appears minimally distracted and is seen along the lateral ana in of the anterior process. No other calcaneal fracture. With respect to the midfoot, talonavicular and calcaneocuboid joints are intact. Navicular cuneiform and tarsometatarsal joints are normal. No acute-appearing midfoot fracture or joint centered abnormal ity is seen. With respect to the forefoot, no evidence of metatarsal fracture. The metatarsophalangeal joints are normal. With respect to the soft tissues, there is mild dorsal soft tissue swelling seen at the midfoot which is continuous with the hindfoot swelling. The intrinsic musculature of the foot is normal in bulk. IMPRESSION: 1. Acute, minimally displaced fracture involving the anterior process of the right calcaneus. 2. Osteochondral lesion involving the lateral talar dome. See today's ankle report for further detail s and recommendations. 3. Heel spur. 4. Mild soft tissue swelling along the dorsal midfoot which is continuous with the hindfoot swelling. Report Dictated By: Chase Urbina at 09/09/2018 3:13 PM Report E-Signed By: Chase Urbina at 09/09/2018 3:19 PM WSN:[id number]
[2018-09-09] MEDS ORDERED: OXYC-865 PO (15:59)
[2018-09-09 16:00] VITALS: BP 147/81
[2018-09-09] MEDS ORDERED: oxyCODONE/ACETAMIN 5/325MG TH 2 TAB/BOTTLE PO ONE (17:15)
== END 2018-09-09 17:20 | disposition home or self-care (01) ==
LOC: ER 13:22
DX: S92.021A Displaced fracture of anterior process of right calcaneus, initial encounter for closed fracture (principal); S82.51XA Displaced fracture of medial malleolus of right tibia, initial encounter for closed fracture
CPT/HCPCS: 99284

== ENCOUNTER 2018-09-30 10:52 | Emergency (ER) | payer SELFPAY ==
[2017-12-22 10:53] VITALS: Wt 93.0 kg
--- NOTE | 2018-09-30 10:55 | ER Report ---
History and Physical Time Seen By MD: 10:54 Allergies: Coded Allergies: No Known Drug Allergies (Unverified , 09/05/18) Home Meds Active Scripts Oxycodone Hcl/Acetaminophen (PERCOCET 5-325 MG TABLET) 1 Each Tablet, 1 EACH PO Q4-6H PRN for PAIN, #12 TAB Prov:JAYDEN PETTIT [employer] 09/09/18 Hydrocodone Bit/Acetaminophen (HYDROCODON-ACETAMINOPHEN 5-325) 1 Each Tablet, 1 EACH PO Q4-6H PRN for PAIN, #14 TAKE ONE TABLET BY MOUTH EVERY 4-6 HOURS NEEDED FOR PAIN Prov:LIVAN ANN DO 09/05/18 Methimazole (METHIMAZOLE) 10 Mg Tablet, 5 MG PO SuTuThSa@2100 for 30 Days, Prov:RUBI FLORES MD 12/24/17 Methimazole (METHIMAZOLE) 10 Mg Tablet, 10 MG PO MoWeFr@2100 for 30 Days, Prov:RUBI FLORES MD 12/24/17 Reported Medications Pantoprazole Sodium (PANTOPRAZOLE SODIUM) 40 Mg Tablet.dr, 40 MG PO QDAY, TAB.SR 09/05/18 Multivitamin (One-Daily Multi-Vitamin) 1 Each Tablet, 1 CAP QDAY 05/13/18 Ranitidine Hcl (ZANTAC) 150 Mg Tablet, 300 MG PO TID, TAB 05/13/18 Gabapentin (GABAPENTIN) 300 Mg Capsule, 300 MG PO TID, CAPSULE 12/21/17 Trazodone Hcl (TRAZODONE HCL) 50 Mg Tablet, 150 MG PO QHS 12/21/17 Cholecalciferol (Vitamin D3) (VITAMIN D) 1,000 Unit Capsule, 1000 UNIT PO QDAY, CAPSULE 09/05/16 Melatonin (MELATONIN) 3 Mg Tablet.er, 3 MG PO QHS 09/05/16 Hx Smoking: Yes (1PPD X 35) Smoking Status: Current: Every Day Smoker Hx Substance Use Disorder: No Hx Alcohol Use: Yes (RARE) Depart Departure Condition: Stable Disposition: HOME OR SELF-CARE ASA SAHU MD Sep 30, 2018 10:55
--- NOTE | 2018-09-30 11:00 | ER Report ---
History and Physical Time Seen By MD: 11:00 Hx. of Stated Complaint: Concerened about healing of right foot with previos fracture HPI/ROS CHIEF COMPLAINT: Concerned about healing of right foot with previous fracture. HISTORY OF PRESENT ILLNESS: 52 year old female presents with concerns regarding healing of previous injury to her right ankle. Patient was seen on 09/09/18 in the ER and was diagnosed with a minimally displaced fracture of the anterior process of the right calcaneus and avulsion type fracture of the anterior margin of the distal portion of the right tibia medial malleolus. Patient presents today with concerns regarding where her pain and swelling are located compared to where her break was located. Patient reports pain is on the lateral side of her right ankle and top of the foot. Also reports swelling to the lateral side of her right ankle. Patient reports that she just ran out of her percocet and needs her percocet to make it through her half day of work. Reports the percocet takes the edge off of her pain. She states that the pain at her worse is a 7 out of 10, and that happens when she gets off of work. Pain at her best is a 2 out of 10 when sitting with her leg elevated. REVIEW OF SYSTEMS: Constitutional: Denies fevers, change in appetite. Respiratory: No cough, no dyspnea. Cardiovascular: No chest pain, no palpitations. Gastrointestinal: No vomiting, no abdominal pain. Musculoskeletal: No back pain. Pain to right foot on the lateral side and dorsal side. Reports swelling to the lateral side of her right foot. Reports a red band across the anterior portion of her ankle. Allergies: Coded Allergies: No Known Drug Allergies (Unverified , 09/05/18) Home Meds Active Scripts Oxycodone Hcl/Acetaminophen (PERCOCET 5-325 MG TABLET) 1 Each Tablet, 1 EACH PO Q4-6H PRN for PAIN, #10 TAB Prov:JAYDEN PETTIT [employer] 09/30/18 Oxycodone Hcl/Acetaminophen (PERCOCET 5-325 MG TABLET) 1 Each Tablet, 1 EACH PO Q4-6H PRN for PAIN, #12 TAB Prov:JAYDEN PETTIT [employer] 09/09/18 Hydrocodone Bit/Acetaminophen (HYDROCODON-ACETAMINOPHEN 5-325) 1 Each Tablet, 1 EACH PO Q4-6H PRN for PAIN, #14 TAKE ONE TABLET BY MOUTH EVERY 4-6 HOURS NEEDED FOR PAIN Prov:MARISSALIVAN Carlos DO 09/05/18 Methimazole (METHIMAZOLE) 10 Mg Tablet, 5 MG PO SuTuThSa@2100 for 30 Days, Prov:RUBI FLORES MD 12/24/17 Methimazole (METHIMAZOLE) 10 Mg Tablet, 10 MG PO MoWeFr@2100 for 30 Days, Prov:RUBI FLORES MD 12/24/17 Reported Medications Pantoprazole Sodium (PANTOPRAZOLE SODIUM) 40 Mg Tablet.dr, 40 MG PO QDAY, TAB.SR 09/05/18 Multivitamin (One-Daily Multi-Vitamin) 1 Each Tablet, 1 CAP QDAY 05/13/18 Ranitidine Hcl (ZANTAC) 150 Mg Tablet, 300 MG PO TID, TAB 05/13/18 Gabapentin (GABAPENTIN) 300 Mg Capsule, 300 MG PO TID, CAPSULE 12/21/17 Trazodone Hcl (TRAZODONE HCL) 50 Mg Tablet, 150 MG PO QHS 12/21/17 Cholecalciferol (Vitamin D3) (VITAMIN D) 1,000 Unit Capsule, 1000 UNIT PO QDAY, CAPSULE 09/05/16 Melatonin (MELATONIN) 3 Mg Tablet.er, 3 MG PO QHS 09/05/16 Past Medical/Surgical History Patient with significant past medical history of meningitis in 2010, migraines, GI ulcers, hiatal hernia, GERD, arthritis, right wrist and right ankle fractures, graves disease. Significant past surgical history for colonoscopy with polyp removal, hysterectomy in 2019, tubal ligation in 1997. Reviewed Nurses Notes: Yes Hx Smoking: Yes (1PPD X 35) Smoking Status: Current: Every Day Smoker Hx Substance Use Disorder: No Hx Alcohol Use: Yes (RARE) Constitutional Vital Sign - Last 24 Hours 09/30/18 09/30/18 09/30/18 09/30/18 10:57 10:58 11:00 11:07 Temp 98.6 Pulse 91 ??? Resp 16 B/P (MAP) 132/82 132/82 (99) 122/77 (92) Pulse Ox 92 O2 Delivery Room Air 09/30/18 09/30/18 09/30/18 09/30/18 11:22 11:30 11:37 11:52 Pulse ? B/P (MAP) ???/??? (3822) 09/30/18 09/30/18 09/30/18 09/30/18 12:00 12:07 12:22 12:30 Pulse ? B/P (MAP) ???/??? (1664) ???/??? (1664) 09/30/18 12:37 Pulse ??? Physical Exam General Appearance: The patient is alert, has no immediate need for airway protection and no current signs of toxicity. Eyes: Pupils equal and round no injection. Respiratory: Chest is non tender, lungs are clear to auscultation. Cardiac: regular rate and rhythm Gastrointestinal: Abdomen is soft and non tender, no masses, bowel sounds normal. Musculoskeletal: Minimal swelling noted to lateral aspect of right foot. Redness noted across anterior aspect of right ankle. Reports pain with palpation to right lateral maleolus, dorsal side of foot, and lower lateral aspect of ankle. Denies pain with palpation to medial aspect of right ankle. Skin: No rashes or lesions. DIFFERENTIAL DIAGNOSIS: After history and physical exam differential diagnosis was considered for displaced fracture, DVT, ankle pain Medical Decision Making EKG/Imaging Imaging Ankle x-ray: Findings: Tiny avulsion fracture of the distal right medial malleolus again seen. The ankle mortise appears intact. There is less soft tissue swelling over the lateral aspect of the right ankle. The osteochondral lesion along the lateral talar dome was better seen on the recent CT. There is a small right calcaneal spur IMPRESSION: 1. Tiny avulsion fracture of the distal right medial malleolus is again seen. The ankle mortise appears intact Less soft tissue swelling over the lateral aspect of the right ankle Osteochondral lesion along the lateral talar dome was better seen on the recent CT Foot x-ray: Findings: The fracture involving the anterior process of the right calcaneus as present on the recent CT is not well seen on accompanying plain radiographs. There is a small right calcaneal spur. No other acute appearing fracture dislocation identified. Tiny avulsion fracture fragment again seen along the distal medial malleolus IMPRESSION: 1. Previously noted fracture along the anterior process of the right calcaneus was better seen on the recent CT Venogram: FINDINGS: Grayscale compression, duplex and color Doppler interrogation of the right lower extremity deep veins from common femoral vein to proximal calf was performed. The greater saphenous vein in the ipsilateral proximal thigh was evaluated using similar technique. Right lower extremity: Common femoral vein: Negative. Femoral vein: Negative. Deep femoral vein: Negative. Popliteal vein: Negative. Visualized deep calf veins: Negative. Greater saphenous vein in the proximal thigh: Negative. Popliteal fossa: Negative. Waveforms: Normal respiratory phasicity. IMPRESSION: No evidence of deep vein thrombosis of the right lower extremity. ED Course/Re-evaluation ED Course Patient admitted to an exam room, history and physical taken, differentials considered. Patient was seen on 09/09/18 in the ER and was diagnosed with a minimally displaced fracture of the anterior process of the right calcaneus and avulsion type fracture of the anterior margin of the distal portion of the right tibia medial malleolus. Patient presents today with concerns regarding where her pain and swelling are located compared to where her break was located. Patient reports pain is on the lateral side of her right ankle and top of the foot. Also reports swelling to the lateral side of her right ankle. Patient reports that she just ran out of her percocet and needs her percocet to make it through her half day of work. X-ray of foot and ankle obtained. Minimal swelling to lateral aspect of right foot. Redness noted across anterior aspect of ankle; this could be due to the strap of her boot. x-ray of foot and ankle ordered. US ordered to rule out DVT. No changes to fractures seen on ankle and foot x-rays. US was n egative for DVT. Since fractures have not worsened, plan is to send patient home. Will prescribe percocet for 7 days; just enough to make it to her follow- up appointment with Dr. Ambrocio next week [facility]. Patient is in agreement with plan on care. Decision to Disposition Date: Sep 30, 2018 Decision to Disposition Time: 13:33 Depart Departure Latest Vital Signs Vital Signs Date Time Temp Pulse Resp B/P (MAP) Pulse Ox O2 Delivery O2 Flow Rate FiO2 09/30/18 12:37 ??? 09/30/18 12:30 ???/??? (1665) 09/30/18 10:57 98.6 16 92 Room Air Impression: Primary Impression: Calcaneal fracture Condition: Improved Disposition: HOME OR SELF-CARE New Scripts Oxycodone Hcl/Acetaminophen (PERCOCET 5-325 MG TABLET) 1 Each Tablet 1 EACH PO Q4-6H PRN for PAIN, #10 TAB Prov: JAYDEN PETTIT 09/30/18 Patient Instructions: Calcaneal Fracture (ED) Additional Instructions: Ice foot 2-3 times a day for 10-15 minutes. Get plenty of rest. Follow up with Dr. Ambrocio at the [facility] next week as scheduled. Return to the ER if condition worsens. Wear the splint when you are up moving around. Problem Qualifiers Primary Impression: Calcaneal fracture Encounter type: subsequent encounter Calcaneus location: unspecified portion of calcaneus Fracture type: closed Fracture alignment: displaced Laterality: right Fracture healing: with routine healing Qualified Codes: S92.001D - Unspecified fracture of right calcaneus, subsequent encounter for fracture with routine healing JAYDEN PETTIT Sep 30, 2018 11:00
--- NOTE | 2018-09-30 13:14 | RADIOLOGY IMAGING REPORT ---
FACILITY: [facility] PATIENT NAME: Pia Angel : 1965 MR: [id number] V: [id number] EXAM DATE: ORDERING PHYSICIAN: JAYDEN PETTIT TECHNOLOGIST: Location: [facility] Patient: Pia Angel : 1965 Visit/Account:[id number] Date of Sevice: 09/30/2018 Exam type: ANKLE 3 VIEW MIN RIGHT History: non-displaced calcaneal fx, medial malleolus fx Comparison: September 05, 2018. And CT of the right ankle September 09, 2018 Findings: Tiny avulsion fracture of the distal right medial malleolus again seen. The ankle mortise appears in tact. There is less soft tissue swelling over the lateral aspect of the right ankle. The osteochond ral lesion along the lateral talar dome was better seen on the recent CT. There is a small right alexandr caneal spur IMPRESSION: 1. Tiny avulsion fracture of the distal right medial malleolus is again seen. The ankle mortise mt ears intact Less soft tissue swelling over the lateral aspect of the right ankle Osteochondral lesion along the lateral talar dome was better seen on the recent CT Report Dictated By: Alyx Farias MD at 09/30/2018 1:04 PM Report E-Signed By: Alyx Farias MD at 09/30/2018 1:09 PM [id number]:[email or web address]
--- NOTE | 2018-09-30 13:16 | RADIOLOGY IMAGING REPORT ---
FACILITY: [facility] PATIENT NAME: Pia Angel : 1965 MR: [id number] V: [id number] EXAM DATE: ORDERING PHYSICIAN: JAYDEN PETTIT TECHNOLOGIST: Location: [facility] [place] Patient: Pia Angel : 1965 Visit/Account:[id number] Date of Sevice: 09/30/2018 Exam type: FOOT 3 VIEWS RIGHT History: non-displaced calcaneal fx, medial malleolus fx Comparison: CT of the right foot September 09, 2018. Findings: The fracture involving the anterior process of the right calcaneus as present on the recent CT is not well seen on accompanying plain radiographs. There is a small right calcaneal spur. No other acute appearing fracture dislocation identified. Tiny avulsion fracture fragment again seen along the distal medial malleolus IMPRESSION: 1. Previously noted fracture along the anterior process of the right calcaneus was better seen on th e recent CT Report Dictated By: Alyx Farias MD at 09/30/2018 1:09 PM Report E-Signed By: Alyx Farias MD at 09/30/2018 1:12 PM WSN:[email or web address]
[2018-09-30] MEDS ORDERED: OXYC-865 PO (13:34)
--- NOTE | 2018-09-30 14:03 | RADIOLOGY IMAGING REPORT ---
FACILITY: [facility] [place] PATIENT NAME: Pia Angel : 1965 MR: [id number] V: [id number] EXAM DATE: ORDERING PHYSICIAN: JAYDEN PETTIT TECHNOLOGIST: Location: [facility] Patient: Pia Angel : 1965 Visit/Account:[id number] Date of Sevice: 09/30/2018 EXAMINATION: Unilateral lower extremity deep vein duplex Doppler ultrasound HISTORY: Swelling and pain to right lower leg. COMPARISON: None. FINDINGS: Grayscale compression, duplex and color Doppler interrogation of the right lower extremity deep veins from common femoral vein to proximal calf was performed. The greater saphenous vein in the ipsilater al proximal thigh was evaluated using similar technique. Right lower extremity: Common femoral vein: Negative. Femoral vein: Negative. Deep femoral vein: Negative. Popliteal vein: Negative. Visualized deep calf veins: Negative. Greater saphenous vein in the proximal thigh: Negative. Popliteal fossa: Negative. Waveforms: Normal respiratory phasicity. IMPRESSION: No evidence of deep vein thrombosis of the right lower extremity. Report Dictated By: Orlando Crump MD at 09/30/2018 1:57 PM Report E-Signed By: Orlando Crump MD at 09/30/2018 1:59 PM WSN:[id number]
== END 2018-09-30 13:59 | disposition home or self-care (01) ==
LOC: ER 11:12
DX: S92.001D Unspecified fracture of right calcaneus, subsequent encounter for fracture with routine healing (principal)
CPT/HCPCS: 73610; 73630; 93971; 99284; L1930

== ENCOUNTER 2018-11-11 10:59 | Emergency (ER) | payer SELFPAY ==
[2017-12-22 10:53] VITALS: Wt 93.0 kg
--- NOTE | 2018-11-11 11:05 | ER Report ---
History and Physical Time Seen By MD: 11:05 HPI/MIGUEL ANGEL CHIEF COMPLAINT: Foot pain HISTORY OF PRESENT ILLNESS: This is a 52-year-old female presents to emergency department for right foot pain. Patient has a known history of calcaneal spurs, has also in the last couple months had an avulsion fracture of her left medial malleolus, was in a walking boot for approximate 6 weeks, has been out of walking boot for approximately 8 days, states that she's had increased pain in her right foot as well as swelling. She denies reinjuring her foot but she states the pain is so intense at the end of the day after working that it's difficult for her to ambulate. Shows a states that about one week ago she was at work and an object fell off a shelf, she had with her right elbow, she's got good range of motion however there are certain positions that cause discomfort to her elbow, no swelling or erythema noted. She denies chest pain or shortness breath. No nausea or vomiting. No numbness or tingling. REVIEW OF SYSTEMS: Respiratory: No cough, no dyspnea. Cardiovascular: No chest pain, no palpitations. Gastrointestinal: No vomiting, no abdominal pain. Musculoskeletal: As above. Allergies: Coded Allergies: No Known Drug Allergies (Unverified , 11/11/18) Home Meds Active Scripts Methimazole (METHIMAZOLE) 10 Mg Tablet, 5 MG PO SuTuThSa@2100 for 30 Days, Prov:RUBI FLORES MD 12/24/17 Methimazole (METHIMAZOLE) 10 Mg Tablet, 10 MG PO MoWeFr@2100 for 30 Days, Prov:RUBI FLORES MD 12/24/17 Reported Medications Pantoprazole Sodium (PANTOPRAZOLE SODIUM) 40 Mg Tablet.dr, 40 MG PO QDAY, TAB.SR 09/05/18 Multivitamin (One-Daily Multi-Vitamin) 1 Each Tablet, 1 CAP QDAY 05/13/18 Gabapentin (GABAPENTIN) 300 Mg Capsule, 300 MG PO TID, CAPSULE 12/21/17 Trazodone Hcl (TRAZODONE HCL) 50 Mg Tablet, 150 MG PO QHS 12/21/17 Cholecalciferol (Vitamin D3) (VITAMIN D) 1,000 Unit Capsule, 1000 UNIT PO QDAY, CAPSULE 09/05/16 Melatonin (MELATONIN) 3 Mg Tablet.er, 3 MG PO QHS 09/05/16 Discontinued Reported Medications Ranitidine Hcl (ZANTAC) 150 Mg Tablet, 300 MG PO TID, TAB 05/13/18 Discontinued Scripts Oxycodone Hcl/Acetaminophen (PERCOCET 5-325 MG TABLET) 1 Each Tablet, 1 EACH PO Q4-6H PRN for PAIN, #10 TAB Prov:JAYDEN PETTIT TECHNICIAN PREVENTATIVE MEDICINE 09/30/18 Oxycodone Hcl/Acetaminophen (PERCOCET 5-325 MG TABLET) 1 Each Tablet, 1 EACH PO Q4-6H PRN for PAIN, #12 TAB Prov:JAYDEN PETTIT TECHNICIAN PREVENTATIVE MEDICINE 09/09/18 Hydrocodone Bit/Acetaminophen (HYDROCODON-ACETAMINOPHEN 5-325) 1 Each Tablet, 1 EACH PO Q4-6H PRN for PAIN, #14 TAKE ONE TABLET BY MOUTH EVERY 4-6 HOURS NEEDED FOR PAIN Prov:LIVAN ANN DO 09/05/18 Past Medical/Surgical History The patient has a past medical and surgical history of Graves' disease, wears glasses, meningitis, migraines, COPD, uses tobacco, pneumonia, ulcers, hiatal hernia, colonoscopy, tubal ligation, hysterectomy, arthritis, right wrist fracture, right ankle fracture. Reviewed Nurses Notes: Yes Hx Smoking: Yes (1PPD X 35) Smoking Status: Current: Every Day Smoker Hx Substance Use Disorder: No Hx Alcohol Use: Yes (RARE) Constitutional Vital Sign - Last 24 Hours 11/11/18 11/11/18 11:02 12:35 Temp 98.8 Pulse 100 87 Resp 18 16 B/P (MAP) 119/65 109/63 (78) Pulse Ox 91 93 O2 Delivery Room Air Room Air Physical Exam General Appearance: The patient is alert, has no immediate need for airway protection and no current signs of toxicity. Eyes: Pupils equal and round no injection. Respiratory: Chest is non tender, lungs are clear to auscultation. Cardiac: regular rate and rhythm. Gastrointestinal: Abdomen is soft and non tender, no masses, bowel sounds normal. Musculoskeletal: Neck: Neck is supple and non tender. Extremities generalized pain to the right foot, more intense to the lateral aspect of foot the patient, generalized swelling to the foot and right lateral malleolus. No erythema or cellulitis. It is not hot to touch. Skin: No rashes or lesions. DIFFERENTIAL DIAGNOSIS: After history and physical exam differential diagnosis was considered for stress fracture, repetitive motion injury, tendinitis. Medical Decision Making EKG/Imaging Imaging PATIENT NAME: Pia Angel : 1965 MR: [id number] V: [id number] EXAM DATE: ORDERING PHYSICIAN: ALEAH MARY TECHNOLOGIST: Location: Patient: Pia Angel : 1965 Visit/Account:[id number] Date of Sevice: 11/11/2018 FOOT 3 VIEWS RIGHT Indication: Pain. Comparison: 09/30/2018 Findings: 3 views of the right foot were obtained. No acute fracture is identified. No radiographic correlate for the tiny avulsion type fracture seen on prior cross-sectional imaging involving the anterior process of the calcaneus. There is an intermediate heel spur. The hindfoot, midfoot and forefoot joints appear appropriately aligned. There is a tibiotalar joint effusion which is more pronounced than on the prior study. There is soft tissue swelling anterior to the ankle joint as well. IMPRESSION: 1. No acute fracture or dislocation at the right foot. No radiographic correlate for the minimally displaced calcaneal avulsion fracture seen on prior cross- sectional imaging. 2. Tibiotalar joint effusion with anterior right ankle soft tissue swelling. These findings are more pronounced than on the prior study. Correlate clinically. 3. Heel spur. Report Dictated By: Chase Urbina at 11/11/2018 11:52 AM Report E-Signed By: Chase Urbina at 11/11/2018 11:58 AM WSN:[id number] PATIENT NAME: Pia Angel : 1965 MR: [id number] V: [id number] EXAM DATE: ORDERING PHYSICIAN: ALEAH MARY TECHNOLOGIST: Location: Patient: Pia Angel : 1965 Visit/Account:[id number] Date of Sevice: 11/11/2018 ELBOW 3 VIEW RIGHT Indication: Pain. Injury. Comparison: None Available Findings: 3 views of the right elbow are obtained. No acute fracture or dislocation is identified. No joint effusion. On the frontal view, enthesopathic changes are seen at the expected location of the common extensor tendon origin. This could reflect prior tendinopathy/lateral epicondylitis. Correlate clinically. Joint space is maintained. IMPRESSION: 1. No acute fracture, dislocation or joint effusion at the right elbow. 2. Enthesopathic changes at the lateral epicondyle which may reflect prior common extensor tendinopathy/lateral epicondylitis. Correlate clinically. Report Dictated By: Chase Urbina at 11/11/2018 11:50 AM Report E-Signed By: Chase Urbina at 11/11/2018 11:52 AM WSN:[id number] ED Course/Re-evaluation ED Course The patient was admitted to room. A history and physical obtained. Differential diagnoses were considered. An x-ray of the right foot and elbow were negative for any acute abnormalities. They did show Tibiotalar joint effusion with anterior right ankle soft tissue swelling which was different from the previous x-ray. I did review this with the patient. I did recommend that she continues wearing her walking boot, following up with the [facility], her primary care provider Dr. Quinonez and orthopedist Dr. Ambrocio for reevaluation. I did recommend no work this week, and to minimize walking around as to give the foot adequate rest. Instructed to take ibuprofen and Tylenol as need for pain. The patient expressed understanding had no other questions or concerns at this time and discharged home. As noted she will use the boot that she has a home, I did offer her a new one. Decision to Disposition Date: November 11, 2018 Decision to Disposition Time: 12:21 Depart Departure Latest Vital Signs Vital Signs Date Time Temp Pulse Resp B/P (MAP) Pulse Ox O2 Delivery O2 Flow Rate FiO2 11/11/18 12:35 87 16 109/63 (78) 93 Room Air 11/11/18 11:02 98.8 Impression: Primary Impression: Tendinitis of right elbow Additional Impressions: Right foot pain Swelling of right foot Condition: Improved Disposition: HOME OR SELF-CARE Referrals: MALENA QUINONEZ MD 1 Week Patient Instructions: Tennis Elbow (ED), Tennis Elbow Exercises (GEN) Additional Instructions: No acute fractures identified on your Xrays today. The pain in the foot is likely caused by inflammation of the tendons and surrounding tissues in the foot. Please let them rest this week, take Ibuprofen or Tylenol as needed for pain. Please wear the walking boot when up moving about. Please follow up with Dr. Ambrocio at the [facility] for reevaluation of the foot and elbow. If unable to get in to see Dr. Ambrocio, please follow up with Dr. Quinonez next week for reevaluation. Drink plenty of water. Get plenty of rest. Return to the ED for any other concerns or worsening symptoms. Problem Qualifiers ALEAH MARYP-BC November 11, 2018 11:05
--- NOTE | 2018-11-11 11:57 | RADIOLOGY IMAGING REPORT ---
FACILITY: [facility] - [place] PATIENT NAME: Pia Angel : 1965 MR: [id number] V: [id number] EXAM DATE: ORDERING PHYSICIAN: ALEAH MARY TECHNOLOGIST: Location: [facility] - [place] Patient: Pia Angel : 1965 Visit/Account:[id number] Date of Sevice: 11/11/2018 ELBOW 3 VIEW RIGHT Indication: Pain. Injury. Comparison: None Available Findings: 3 views of the right elbow are obtained. No acute fracture or dislocation is identified. No joint effusion. On the frontal view, enthesopathic changes are seen at the expected location of the common extensor t endon origin. This could reflect prior tendinopathy/lateral epicondylitis. Correlate clinically. Join t space is maintained. IMPRESSION: 1. No acute fracture, dislocation or joint effusion at the right elbow. 2. Enthesopathic changes at the lateral epicondyle which may reflect prior common extensor tendinopat hy/lateral epicondylitis. Correlate clinically. Report Dictated By: Chase Urbina at 11/11/2018 11:50 AM Report E-Signed By: Chase Urbina at 11/11/2018 11:52 AM WSN:[id number]
--- NOTE | 2018-11-11 12:02 | RADIOLOGY IMAGING REPORT ---
FACILITY: [facility] PATIENT NAME: Pia Angel : 1965 MR: [id number] V: [id number] EXAM DATE: ORDERING PHYSICIAN: ALEAH MARY TECHNOLOGIST: Location: [facility] - [place] Patient: Pia Angel : 1965 Visit/Account:[id number] Date of Sevice: 11/11/2018 FOOT 3 VIEWS RIGHT Indication: Pain. Comparison: 09/30/2018 Findings: 3 views of the right foot were obtained. No acute fracture is identified. No radiographic correlate for the tiny avulsion type fracture seen o n prior cross-sectional imaging involving the anterior process of the calcaneus. There is an intermed iate heel spur. The hindfoot, midfoot and forefoot joints appear appropriately aligned. There is a ti biotalar joint effusion which is more pronounced than on the prior study. There is soft tissue swelli ng anterior to the ankle joint as well. IMPRESSION: 1. No acute fracture or dislocation at the right foot. No radiographic correlate for the minimally di splaced calcaneal avulsion fracture seen on prior cross-sectional imaging. 2. Tibiotalar joint effusion with anterior right ankle soft tissue swelling. These findings are more pronounced than on the prior study. Correlate clinically. 3. Heel spur. Report Dictated By: Chase Urbina at 11/11/2018 11:52 AM Report E-Signed By: Chase Urbina at 11/11/2018 11:58 AM WSN:[id number]
[2018-11-11 12:35] VITALS: BP 109/63
== END 2018-11-11 12:34 | disposition home or self-care (01) ==
LOC: ER 11:02
DX: M77.9 Enthesopathy, unspecified (principal); M79.671 Pain in right foot; M79.89 Other specified soft tissue disorders
CPT/HCPCS: 99284

== ENCOUNTER 2018-11-23 06:08 | Emergency (ER) | payer SELFPAY ==
[2017-12-22 10:53] VITALS: Wt 93.0 kg
[~2018-11-23 06:08] MED LIST changes: -RANI-366 PO; +RANI-54 PO; -TRAZ50TA34 PO; +TRAZ50TA52 PO
[2018-11-23 06:13] VITALS: BP 147/101
--- NOTE | 2018-11-23 06:21 | ER Report ---
History and Physical Time Seen By MD: 06:21 Hx. of Stated Complaint: been sick all week with flu like symptoms. woke up around 3:30 with n/v, chills (HEATH SAMUELS MD) Time Seen By MD: 07:00 (ELTON MADRID DO) HPI/ROS CHIEF COMPLAINT: Vomiting HISTORY OF PRESENT ILLNESS: This is a 52-year-old female. She came in the ER because she is vomiting tonight. This started this morning waking her up. She is having generalized abdominal pain in the periumbilical and epigastric area. This does not radiate. Denies any chest pain. Does have a little bit of shortness of breath with vomiting. She does have a history of ulcer disease but has not had any blood in the emesis and no melena. She takes ranitidine 3 times a day and pantoprazole once a day. She has been sick for the last week with symptoms of congestion, cough, and fevers. Headache and feeling very cold right now. Denies any trouble with urination. No sick contacts. Does not think she's had any bad food exposures. Denies chest pain. (HEATH SAMUELS MD) HPI/ROS Please see Dr. Samuels note (ELTON MADRID DO) Allergies: Coded Allergies: No Known Drug Allergies (Unverified , 11/23/18) Home Meds Active Scripts Pantoprazole Sodium (PANTOPRAZOLE SODIUM) 40 Mg Tablet., 40 MG PO BID for 30 Days, #60 TAB.SR Prov:ELTON MADRID DO 11/23/18 Promethazine HCl (Phenergan) 25 Mg Supp.rect, 1 SUPP.RECT ME Q8-12H PRN for NAUSEA/VOMITING, #20 SUPP.RECT Prov:ELTON MADRID DO 11/23/18 Ondansetron 4 Mg Odt (ONDANSETRON 4 MG ODT) 4 Mg Tab.rapdis, 4 MG PO Q4-6H PRN for NAUSEA/VOMITING, #20 TAB Prov:ELTON MADRID DO 11/23/18 Methimazole (METHIMAZOLE) 10 Mg Tablet, 5 MG PO SuTuThSa@2100 for 30 Days, Prov:RUBI FLORES MD 12/24/17 Methimazole (METHIMAZOLE) 10 Mg Tablet, 10 MG PO MoWeFr@2100 for 30 Days, Prov:RUBI FLORES MD 12/24/17 Reported Medications Pantoprazole Sodium (PANTOPRAZOLE SODIUM) 40 Mg Tablet.dr, 40 MG PO QDAY, TAB.SR 09/05/18 Multivitamin (One-Daily Multi-Vitamin) 1 Each Tablet, 1 CAP QDAY 05/13/18 Gabapentin (GABAPENTIN) 300 Mg Capsule, 300 MG PO TID, CAPSULE 12/21/17 Trazodone Hcl (TRAZODONE HCL) 50 Mg Tablet, 150 MG PO QHS 12/21/17 Cholecalciferol (Vitamin D3) (VITAMIN D) 1,000 Unit Capsule, 1000 UNIT PO QDAY, CAPSULE 09/05/16 Melatonin (MELATONIN) 3 Mg Tablet.er, 3 MG PO QHS 09/05/16 Reviewed Nurses Notes: Yes (HEATH SAMUELS MD) Hx Smoking: Yes (1PPD X 35) Smoking Status: Current: Every Day Smoker Hx Substance Use Disorder: No Hx Alcohol Use: Yes (RARE) (HEATH SAMUELS MD) Constitutional Vital Sign - Last 24 Hours 11/23/18 06:13 Temp 97.8 Pulse 77 Resp 26 B/P (MAP) 147/101 Pulse Ox 98 O2 Delivery Room Air (MADRID,ELTON S ) Physical Exam General Appearance: Alert. Acute distress due to symptoms. Eyes: Pupils are equal, round. No pallor, injection or icterus. ENT: Mucous membranes are moist. Normal oral mucosa. Posterior oropharynx is normal. Neck: Supple and non tender. Respiratory: Lungs are clear to auscultation. Cardiovascular: Regular rate and rhythm. No murmurs, gallops or rubs. Normal capillary refill. Gastrointestinal: Abdomen is soft, tender in periumbilical and epigastric area. Nondistended. Guarding, but no rebound. Normal active bowel sounds. No costovertebral angle tenderness with percussion. Neurological: Alert and oriented x3. No focal neurologic deficits Skin: Warm and dry. No rashes. Musculoskeletal: No tenderness in palpation of the cervical, thoracic and lumbar spine. DIFFERENTIAL DIAGNOSIS: After history and physical exam, differential diagnosis was considered for vomiting with abdominal pain including but not limited to gastroenteritis or viral syndrome, gastritis or ulcer disease. (HEATH SAMUELS MD) Physical Exam Please see Dr. Samuels note (ELTON MADRID DO) Medical Decision Making Data Points Result Diagram: 11/23/18 0720 11/23/18 0720 Laboratory Hematology Test 11/23/18 07:20 11/23/18 07:42 Red Blood Count 5.28 M/uL (4.17-5.56) Mean Corpuscular Volume 84.5 fL (80.0-96.0) Mean Corpuscular Hemoglobin 28.6 pg (26.0-33.0) Mean Corpuscular Hemoglobin Concent 33.8 g/dL (32.0-36.0) Red Cell Distribution Width 15.1 % (11.5-14.5) Mean Platelet Volume 9.2 fL (7.2-11.1) Neutrophils (%) (Auto) 89.6 % (39.4-72.5) Lymphocytes (%) (Auto) 7.6 % (17.6-49.6) Monocytes (%) (Auto) 2.2 % (4.1-12.4) Eosinophils (%) (Auto) 0.3 % (0.4-6.7) Basophils (%) (Auto) 0.3 % (0.3-1.4) Nucleated RBC Relative Count (auto) 0.0 /100WBC Neutrophils # (Auto) 9.1 K/uL (2.0-7.4) Lymphocytes # (Auto) 0.8 K/uL (1.3-3.6) Monocytes # (Auto) 0.2 K/uL (0.3-1.0) Eosinophils # (Auto) 0.0 K/uL (0.0-0.5) Basophils # (Auto) 0.0 K/uL (0.0-0.1) Nucleated RBC Absolute Count (auto) 0.00 K/uL Sodium Level 142 mmol/L (137-145) Potassium Level 3.2 mmol/L (3.5-5.0) Chloride Level 110 mmol/L (98-107) Carbon Dioxide Level 20 mmol/L (22-31) Blood Urea Nitrogen 10 mg/dl (7-18) Creatinine 0.50 mg/dl (0.52-1.04) Glomerular Filtration Rate Calc > 60.0 Random Glucose 135 mg/dl (75-110) Calcium Level 9.0 mg/dl (8.4-10.2) Total Bilirubin 0.4 mg/dl (0.2-1.3) Aspartate Amino Transf (AST/SGOT) 20 U/L (0-35) Alanine Aminotransferase (ALT/SGPT) 33 U/L (0-56) Alkaline Phosphatase 87 U/L (0-126) Total Protein 7.2 g/dl (6.3-8.2) Albumin 4.1 g/dl (3.5-5.0) Amylase Level 133 U/L (0-110) Lipase 163 U/L (23-300) Urine Color Yellow Urine Clarity Slightly-cloudy Urine pH 7.0 pH (4.8-9.5) Urine Specific [place] 1.016 Urine Protein Negative mg/dL (NEGATIVE) Urine Glucose (UA) Negative mg/dL (NEGATIVE) Urine Ketones Trace mg/dL (NEGATIVE) Urine Blood Negative (NEGATIVE) Urine Nitrite Negative (NEGATIVE) Urine Bilirubin Negative (NEGATIVE) Urine Urobilinogen Negative mg/dL (0.2-1.9) Urine Leukocyte Esterase Negative (NEGATIVE) Urine RBC <1 /HPF (0-2/HPF) Urine WBC 1 /HPF (0-5/HPF) Urine Squamous Epithelial Cells Many /LPF (</=FEW) Urine Amorphous Crystals Moderate /HPF Urine Bacteria Negative /HPF (NONE-FEW) Urine Hyaline Casts Few /LPF (NONE-FEW) Urine Mucus Few /HPF (NONE-FEW) Chemistry Test 11/23/18 07:20 11/23/18 07:42 White Blood Count 10.1 k/uL (4.5-11.0) Red Blood Count 5.28 M/uL (4.17-5.56) Hemoglobin 15.1 g/dL (12.0-16.0) Hematocrit 44.7 % (34.0-47.0) Mean Corpuscular Volume 84.5 fL (80.0-96.0) Mean Corpuscular Hemoglobin 28.6 pg (26.0-33.0) Mean Corpuscular Hemoglobin Concent 33.8 g/dL (32.0-36.0) Red Cell Distribution Width 15.1 % (11.5-14.5) Platelet Count 192 K/uL (150-450) Mean Platelet Volume 9.2 fL (7.2-11.1) Neutrophils (%) (Auto) 89.6 % (39.4-72.5) Lymphocytes (%) (Auto) 7.6 % (17.6-49.6) Monocytes (%) (Auto) 2.2 % (4.1-12.4) Eosinophils (%) (Auto) 0.3 % (0.4-6.7) Basophils (%) (Auto) 0.3 % (0.3-1.4) Nucleated RBC Relative Count (auto) 0.0 /100WBC Neutrophils # (Auto) 9.1 K/uL (2.0-7.4) Lymphocytes # (Auto) 0.8 K/uL (1.3-3.6) Monocytes # (Auto) 0.2 K/uL (0.3-1.0) Eosinophils # (Auto) 0.0 K/uL (0.0-0.5) Basophils # (Auto) 0.0 K/uL (0.0-0.1) Nucleated RBC Absolute Count (auto) 0.00 K/uL Glomerular Filtration Rate Calc > 60.0 Calcium Level 9.0 mg/dl (8.4-10.2) Total Bilirubin 0.4 mg/dl (0.2-1.3) Aspartate Amino Transf (AST/SGOT) 20 U/L (0-35) Alanine Aminotransferase (ALT/SGPT) 33 U/L (0-56) Alkaline Phosphatase 87 U/L (0-126) Total Protein 7.2 g/dl (6.3-8.2) Albumin 4.1 g/dl (3.5-5.0) Amylase Level 133 U/L (0-110) Lipase 163 U/L (23-300) Urine Color Yellow Urine Clarity Slightly-cloudy Urine pH 7.0 pH (4.8-9.5) Urine Specific [place] 1.016 Urine Protein Negative mg/dL (NEGATIVE) Urine Glucose (UA) Negative mg/dL (NEGATIVE) Urine Ketones Trace mg/dL (NEGATIVE) Urine Blood Negative (NEGATIVE) Urine Nitrite Negative (NEGATIVE) Urine Bilirubin Negative (NEGATIVE) Urine Urobilinogen Negative mg/dL (0.2-1.9) Urine Leukocyte Esterase Negative (NEGATIVE) Urine RBC <1 /HPF (0-2/HPF) Urine WBC 1 /HPF (0-5/HPF) Urine Squamous Epithelial Cells Many /LPF (</=FEW) Urine Amorphous Crystals Moderate /HPF Urine Bacteria Negative /HPF (NONE-FEW) Urine Hyaline Casts Few /LPF (NONE-FEW) Urine Mucus Few /HPF (NONE-FEW) Urinalysis Test 11/23/18 07:42 Urine Color Yellow Urine Clarity Slightly-cloudy Urine pH 7.0 pH (4.8-9.5) Urine Specific [place] 1.016 Urine Protein Negative mg/dL (NEGATIVE) Urine Glucose (UA) Negative mg/dL (NEGATIVE) Urine Ketones Trace mg/dL (NEGATIVE) Urine Blood Negative (NEGATIVE) Urine Nitrite Negative (NEGATIVE) Urine Bilirubin Negative (NEGATIVE) Urine Urobilinogen Negative mg/dL (0.2-1.9) Urine Leukocyte Esterase Negative (NEGATIVE) Urine RBC <1 /HPF (0-2/HPF) Urine WBC 1 /HPF (0-5/HPF) Urine Squamous Epithelial Cells Many /LPF (</=FEW) Urine Amorphous Crystals Moderate /HPF Urine Bacteria Negative /HPF (NONE-FEW) Urine Hyaline Casts Few /LPF (NONE-FEW) Urine Mucus Few /HPF (NONE-FEW) (ELTON MADRID DO) EKG/Imaging Imaging PATIENT NAME: Pia Angel : 1965 MR: [id number] V: [id number] EXAM DATE: ORDERING PHYSICIAN: HEATH SAMUELS TECHNOLOGIST: Location: [facility] Patient: Pia Angel : 1965 Visit/Account:[id number] Date of Sevice: 11/23/2018 Examination: PA chest with abdominal obstructive series HISTORY: Epigastric pain. Periumbilical pain. COMPARISON: None. FINDINGS: PA view of the chest demonstrates clear lungs. No effusion or pneumothorax is seen. Heart size and mediastinal contours are normal. Supine and upright views of the abdomen demonstrate no evidence of free air. The intestinal bowel gas pattern is unremarkable. No calcifications overlie the renal contours. There are scattered calcifications in the pelvis, likely phleboliths. Degenerative changes involve the low lumbar spine. IMPRESSION: 1. No radiographic evidence of active disease in the chest. 2. Normal intestinal bowel gas pattern. (ELTON MADRID DO) ED Course/Re-evaluation ED Course I assumed patient care from Dr. Samuels at shift change. Patient's labs are unremarkable. Obstruction series was unremarkable. I discussed these findings with the patient, provided a prescription for pantoprazole twice a day, Phenergan suppositories. Return precautions provided. Close PCP follow-up recommended. Decision to Disposition Date: Nov 23, 2018 Decision to Disposition Time: 08:27 (ELTON MADRID DO) Depart Departure Latest Vital Signs Vital Signs Date Time Temp Pulse Resp B/P (MAP) Pulse Ox O2 Delivery O2 Flow Rate FiO2 11/23/18 06:13 97.8 77 26 147/101 98 Room Air (MADRID,ELTON Quintana ) Impression: Primary Impression: Abdominal pain Condition: Improved Disposition: HOME OR SELF-CARE New Scripts Pantoprazole Sodium (PANTOPRAZOLE SODIUM) 40 Mg Tablet.dr 40 MG PO BID for 30 Days, #60 TAB.SR Prov: JACKI MADRIDLAS Mariano HERNANDEZ 11/23/18 Promethazine HCl (Phenergan) 25 Mg Supp.rect 1 SUPP.RECT ME Q8-12H PRN for NAUSEA/VOMITING, #20 SUPP.RECT Prov: MADRIDJACKI EUBANKSLAS Mariano HERNANDEZ 11/23/18 Ondansetron 4 Mg Odt (ONDANSETRON 4 MG ODT) 4 Mg Tab.rapdis 4 MG PO Q4-6H PRN for NAUSEA/VOMITING, #20 TAB Prov: ELTON MADRID 11/23/18 Patient Instructions: Abdominal Pain (ED) Additional Instructions: Please drink plenty of water. Please return promptly if you develop fevers, worsening abdominal pain, inability to down food or fluids, blood in the stools or urine. Please follow-up with your family doctor in the next 24-48 hours. Please take pantoprazole 1 tablet twice daily, Zofran as needed for nausea and vomiting every 4-6 hours, Phenergan suppositories for refractory nausea and vomiting. HEATH SAMUELS MD Nov 23, 2018 06:21 ELTON MADRID DO Nov 23, 2018 07:45
[2018-11-23] MEDS ORDERED: ONDANSETRON 4 MG/2 ML VIAL IVP ONE (06:50)
[2018-11-23] MEDS ORDERED: PANTOPRAZOLE SOD 40 MG IV VIAL IVP ONE (06:50)
[2018-11-23 07:28] LABS: PLATELET COUNT, AUTOMATED 192 K/uL (150-450)
--- NOTE | 2018-11-23 08:08 | RADIOLOGY IMAGING REPORT ---
FACILITY: [facility] - [place] PATIENT NAME: Pia Angel : 1965 MR: [id number] V: [id number] EXAM DATE: ORDERING PHYSICIAN: HEATH HALL TECHNOLOGIST: Location: [facility] Patient: Pia Angel : 1965 Visit/Account:[id number] Date of Sevice: 11/23/2018 Examination: PA chest with abdominal obstructive series HISTORY: Epigastric pain. Periumbilical pain. COMPARISON: None. FINDINGS: PA view of the chest demonstrates clear lungs. No effusion or pneumothorax is seen. Heart size and me diastinal contours are normal. Supine and upright views of the abdomen demonstrate no evidence of free air. The intestinal bowel gas pattern is unremarkable. No calcifications overlie the renal contours. There are scattered calcifica tions in the pelvis, likely phleboliths. Degenerative changes involve the low lumbar spine. IMPRESSION: 1. No radiographic evidence of active disease in the chest. 2. Normal intestinal bowel gas pattern. Report Dictated By: Chase Urbina at 11/23/2018 8:01 AM Report E-Signed By: Chase Urbina at 11/23/2018 8:04 AM WSN:[id number]
[2018-11-23] MEDS ORDERED: ONDA4TAB9 PO (08:30)
[2018-11-23] MEDS ORDERED: PROMETHAZINE HCL 25 MG TAB PO ONE (08:50)
[2018-11-23] MEDS ORDERED: MAG HYD/AL HYD/SIMETH 30ML UDC PO ONE (08:50)
[2018-11-23] MEDS ORDERED: LIDOCAINE 2% VISC SLN 15ML UDC PO ONE (08:50)
[2018-11-23] MEDS ORDERED: PROM25SU8 PR (08:56)
[2018-11-23] MEDS ORDERED: PANT40TA65 PO (08:56)
[2018-11-23] MEDS ORDERED: NS(*) 0.9% 1000 ML BAG 1,000 ML IV ONE (19:08)
[2018-11-23] MEDS ORDERED: PROM-110 PO (21:48)
[2018-11-24] MEDS ORDERED: PROM-110 PO (13:22)
== END 2018-11-23 09:23 | disposition home or self-care (01) ==
LOC: ER 06:21
DX: R10.84 Generalized abdominal pain (principal); F17.210 Nicotine dependence, cigarettes, uncomplicated
CPT/HCPCS: 36415; 74022; 81001; 82150; 83690; 85025; 96361; 96374; 96375; 99284; C9113; J2405; J7030; Q0169; 82040; 82247; 82310; 82374; 82435; 82565; 82947; 84075; 84132; 84155; 84295; 84450; 84460; 84520

== ENCOUNTER 2018-11-23 18:51 | Observation (INO) | payer SELFPAY ==
[2017-12-22 10:53] VITALS: Ht 167.6 cm; Wt 93.0 kg
[~2018-11-23] VITALS: Ht 167.6 cm; Wt 93.0 kg
[~2018-11-23 18:51] MED LIST changes: +ONDA4TAB9 PO; +PROM25SU8 PR
--- NOTE | 2018-11-23 19:04 | ER Report ---
History and Physical Time Seen By MD: 19:03 Hx. of Stated Complaint: vomiting since 3am. states meds she was discharged on did not help HPI/ROS CHIEF COMPLAINT: continuous vomiting HISTORY OF PRESENT ILLNESS: 52 year old female presents to ED with continuous vomiting. Patient reports she has been vomiting since 3 AM this morning along with diarrhea. She presented to the ED this morning for vomiting where a chest and abdominal x-ray was done. No acute findings were found. She was sent home with zofran and promethazine. Patient states she has continued vomiting since that point with no relief. She has been vomiting brown and clear fluid, no hematemesis. Reports associated epigastric pain that is cramping type pain. Also reports associated symptoms of runny nose and cough that has been present for about one week. REVIEW OF SYSTEMS: Constitutional: Reports fevers, no appetite. States she has not taken any med ication for the fever. Respiratory: Cough. Mild SOB while vomiting. Cardiovascular: No chest pain, no palpitations. Gastrointestinal: Nausea, vomiting, and abdominal pain as noted above. Reports diarrhea, no blood in stool. Musculoskeletal: No back pain. Allergies: Coded Allergies: No Known Drug Allergies (Unverified , 11/23/18) Home Meds Active Scripts Promethazine Hcl (PROMETHAZINE HCL) 25 Mg Tablet, 25 MG PO Q8H PRN for NAUSEA/VOMITING, #12 TAB Prov:JAYDEN PETTTI 11/23/18 Pantoprazole Sodium (PANTOPRAZOLE SODIUM) 40 Mg Tablet.dr, 40 MG PO BID for 30 Days, #60 TAB.SR Prov:ELTON MADRID DO 11/23/18 Promethazine HCl (Phenergan) 25 Mg Supp.rect, 1 SUPP.RECT SC Q8-12H PRN for NAUSEA/VOMITING, #20 SUPP.RECT Prov:ELTON MADRID DO 11/23/18 Ondansetron 4 Mg Odt (ONDANSETRON 4 MG ODT) 4 Mg Tab.rapdis, 4 MG PO Q4-6H PRN for NAUSEA/VOMITING, #20 TAB Prov:ELTON MADRID DO 11/23/18 Methimazole (METHIMAZOLE) 10 Mg Tablet, 5 MG PO SuTuThSa@2100 for 30 Days, Prov:RUBI FLORES MD 12/24/17 Methimazole (METHIMAZOLE) 10 Mg Tablet, 10 MG PO MoWeFr@2100 for 30 Days, Prov:RUBI FLORES MD 12/24/17 Reported Medications Pantoprazole Sodium (PANTOPRAZOLE SODIUM) 40 Mg Tablet.dr, 40 MG PO QDAY, TAB.SR 09/05/18 Multivitamin (One-Daily Multi-Vitamin) 1 Each Tablet, 1 CAP QDAY 05/13/18 Gabapentin (GABAPENTIN) 300 Mg Capsule, 300 MG PO TID, CAPSULE 12/21/17 Trazodone Hcl (TRAZODONE HCL) 50 Mg Tablet, 150 MG PO QHS 12/21/17 Cholecalciferol (Vitamin D3) (VITAMIN D) 1,000 Unit Capsule, 1000 UNIT PO QDAY, CAPSULE 09/05/16 Melatonin (MELATONIN) 3 Mg Tablet.er, 3 MG PO QHS 09/05/16 Past Medical/Surgical History Past medical hx of meningitis 2010, migraines, pneumonia 2013, GERD, ulcers, hiatal hernia, arthritis, right wrist and right ankle fracture, thyroid disorder, Graves disease, . Past surgical hx of colonoscopy with polyp removal, hysterectomy 2018, tubal ligation 1997. Hx Smoking: Yes (1PPD X 35) Smoking Status: Current: Every Day Smoker Hx Substance Use Disorder: No Hx Alcohol Use: Yes (RARE) Constitutional Vital Sign - Last 24 Hours 11/23/18 11/23/18 11/23/18 11/23/18 18:57 18:58 19:02 20:30 Temp 98.6 Pulse 74 76 Resp 20 B/P (MAP) 139/75 (96) 139/75 139/68 (91) Pulse Ox 96 93 O2 Delivery Room Air 11/23/18 11/23/18 21:00 21:19 B/P (MAP) 112/94 (100) Pulse Ox 91 Physical Exam General Appearance: The patient is alert, has no immediate need for airway protection and no current signs of toxicity. Eyes: Pupils equal and round no injection. Respiratory: Chest is non tender, lungs wheezing to auscultation Cardiac: regular rate and rhythm Gastrointestinal: Abdomen tender to palpation in the epigastric area. Abdomen is soft, no masses, bowel sounds normal. Musculoskeletal: Neck: Neck is supple and non tender. Extremities have full range of motion and are non tender. Skin: No rashes or lesions. DIFFERENTIAL DIAGNOSIS: After history and physical exam differential diagnosis was considered for gastroenteritis, pancreatitis, bowel obstruction, cyclic vom iting, medication reaction, colitis. Medical Decision Making Data Points Result Diagram: 11/23/18202911/23/182029 Laboratory Hematology Test 11/23/18 20:30 Red Blood Count 5.38 M/uL (4.17-5.56) Mean Corpuscular Volume 82.1 fL (80.0-96.0) Mean Corpuscular Hemoglobin 28.4 pg (26.0-33.0) Mean Corpuscular Hemoglobin Concent 34.6 g/dL (32.0-36.0) Red Cell Distribution Width 14.7 % (11.5-14.5) Mean Platelet Volume 9.1 fL (7.2-11.1) Neutrophils (%) (Auto) 86.0 % (39.4-72.5) Lymphocytes (%) (Auto) 9.5 % (17.6-49.6) Monocytes (%) (Auto) 4.2 % (4.1-12.4) Eosinophils (%) (Auto) 0.0 % (0.4-6.7) Basophils (%) (Auto) 0.3 % (0.3-1.4) Nucleated RBC Relative Count (auto) 0.1 /100WBC Neutrophils # (Auto) 9.2 K/uL (2.0-7.4) Lymphocytes # (Auto) 1.0 K/uL (1.3-3.6) Monocytes # (Auto) 0.4 K/uL (0.3-1.0) Eosinophils # (Auto) 0.0 K/uL (0.0-0.5) Basophils # (Auto) 0.0 K/uL (0.0-0.1) Nucleated RBC Absolute Count (auto) 0.01 K/uL Erythrocyte Sedimentation Rate 27 mm/HOUR (0-30) Sodium Level 142 mmol/L (137-145) Potassium Level 2.8 mmol/L (3.5-5.0) Chloride Level 104 mmol/L (98-107) Carbon Dioxide Level 26 mmol/L (22-31) Blood Urea Nitrogen 9 mg/dl (7-18) Creatinine 0.60 mg/dl (0.52-1.04) Glomerular Filtration Rate Calc > 60.0 Random Glucose 143 mg/dl (75-110) Calcium Level 10.1 mg/dl (8.4-10.2) Total Bilirubin 0.5 mg/dl (0.2-1.3) Aspartate Amino Transf (AST/SGOT) 25 U/L (0-35) Alanine Aminotransferase (ALT/SGPT) 31 U/L (0-56) Alkaline Phosphatase 88 U/L (0-126) C-Reactive Protein < 0.5 mg/dl (<1.0) Total Protein 7.7 g/dl (6.3-8.2) Albumin 4.5 g/dl (3.5-5.0) Amylase Level 76 U/L (0-110) Lipase 37 U/L (23-300) Chemistry Test 11/23/18 20:30 White Blood Count 10.7 k/uL (4.5-11.0) Red Blood Count 5.38 M/uL (4.17-5.56) Hemoglobin 15.3 g/dL (12.0-16.0) Hematocrit 44.2 % (34.0-47.0) Mean Corpuscular Volume 82.1 fL (80.0-96.0) Mean Corpuscular Hemoglobin 28.4 pg (26.0-33.0) Mean Corpuscular Hemoglobin Concent 34.6 g/dL (32.0-36.0) Red Cell Distribution Width 14.7 % (11.5-14.5) Platelet Count 250 K/uL (150-450) Mean Platelet Volume 9.1 fL (7.2-11.1) Neutrophils (%) (Auto) 86.0 % (39.4-72.5) Lymphocytes (%) (Auto) 9.5 % (17.6-49.6) Monocytes (%) (Auto) 4.2 % (4.1-12.4) Eosinophils (%) (Auto) 0.0 % (0.4-6.7) Basophils (%) (Auto) 0.3 % (0.3-1.4) Nucleated RBC Relative Count (auto) 0.1 /100WBC Neutrophils # (Auto) 9.2 K/uL (2.0-7.4) Lymphocytes # (Auto) 1.0 K/uL (1.3-3.6) Monocytes # (Auto) 0.4 K/uL (0.3-1.0) Eosinophils # (Auto) 0.0 K/uL (0.0-0.5) Basophils # (Auto) 0.0 K/uL (0.0-0.1) Nucleated RBC Absolute Count (auto) 0.01 K/uL Erythrocyte Sedimentation Rate 27 mm/HOUR (0-30) Glomerular Filtration Rate Calc > 60.0 Calcium Level 10.1 mg/dl (8.4-10.2) Total Bilirubin 0.5 mg/dl (0.2-1.3) Aspartate Amino Transf (AST/SGOT) 25 U/L (0-35) Alanine Aminotransferase (ALT/SGPT) 31 U/L (0-56) Alkaline Phosphatase 88 U/L (0-126) C-Reactive Protein < 0.5 mg/dl (<1.0) Total Protein 7.7 g/dl (6.3-8.2) Albumin 4.5 g/dl (3.5-5.0) Amylase Level 76 U/L (0-110) Lipase 37 U/L (23-300) EKG/Imaging Imaging PATIENT NAME: Pia Angel : 1965 MR: [id number] V: [id number] EXAM DATE: ORDERING PHYSICIAN: JAYDEN PETTIT TECHNOLOGIST: Location: [facility] [place] Patient: Pia Angel : 1965 Visit/Account:[id number] Date of Sevice: 11/23/2018 CT ABDOMEN PELVIS W/ CON HISTORY:Epigastric abdominal pain TECHNIQUE: CT abdomen and pelvis with intravenous contrast. Contiguous axial images of the abdomen and pelvis was performed from the lung bases to the symphysis pubis. One of the following dose optimization techniques was utilized in the performance of this exam: Automated exposure control; adjustment of the mA and/or kV according to the patient's size; or use of an iterative reconstruction technique. Specific details can be referenced in the facility's radiology CT exam operational policy. CONTRAST: 75 cc of Isovue-370 COMPARISON: 12/31/2017 FINDINGS: Visualized lung bases: There is a small hiatal hernia. Hepatobiliary: Liver is enlarged measures 20.1 cm in craniocaudal length with fatty infiltration. Gallbladder and bile ducts are unremarkable. Spleen: Negative. Adrenals: 3.3 x 2.2 cm low-density left adrenal adenoma is once again noted. Kidneys/: Small cyst superior pole right kidney is noted. Pancreas: Negative. GI: There is no bowel obstruction or focal inflammation. Appendix is normal. Vessels/spaces/nodes: Atherosclerotic calcification is noted. Bones/soft tissues: Degenerative changes are noted particularly L5-S1. IMPRESSION: 1. No acute pathology in the abdomen or pelvis. 2. The appendix is visualized and is normal. 3. Numerous other chronic findings are described above ED Course/Re-evaluation ED Course Upon arrival to the ED, patient admitted to an exam room, hx and physical obtained, differentials considered. Patient presents to ED with continuous vomiting. Patient reports she has been vomiting since 3 AM this morning along with diarrhea. She presented to the ED this morning for vomiting where a chest and abdominal x-ray was done. No acute findings were found. She was sent home with zofran and promethazine. Patient states she has continued vomiting since that point with no relief. She has been vomiting brown and clear fluid, no hematemesis or bloody stool. Reports associated epigastric pain that is cramping in nature. Also reports associated symptoms of runny nose and cough that has been present for about one week. On exam, lungs with wheezes in upper lobes, heart regular. Abdomen tender to palpation in epigastric area, no mass palpated. IV started. CBC, CMP, amylase, lipase, ESR, CRP, and CT of abdomen and pelvis obtained. Promethazine 12.5mg given IV. Magic mouthwash given to patient. Potassium critical at 2.8. 20 mEq oral potassium and 20 mEq IV potassium ordered. CRP negative. Slight left shift with 86% neutrophils. Rest of CBC and rest of CMP unremarkable. On CT there was no acute pathology of the abdomen or pelvis noted. Discussed with patient her low potassium can be due to diarrhea and vomiting. Due to the rest of her normal labs and CT scan, I feel comfortable sending her home after the IV potassium infuses along with another bag of 1L NS. Patient will go home with prescription for oral phenergan. Patient states understanding to plan of care. However, she then asked if she could be admitted to the hospital. Hospitalist contacted and informed him of patient's status and request to be admitted. After evaluation, Dr. Flores accepted patient to be admitted for vomiting and hypokalemia. Decision to Disposition Date: Nov 23, 2018 Decision to Disposition Time: 22:28 Depart Departure Latest Vital Signs Vital Signs Date Time Temp Pulse Resp B/P (MAP) Pulse Ox O2 Delivery O2 Flow Rate FiO2 11/23/18 21:19 112/94 (100) 11/23/18 21:00 91 11/23/18 20:30 76 11/23/18 18:58 98.6 20 Room Air Impression: Primary Impression: Nausea & vomiting Additional Impression: Hypokalemia Condition: Condition Unchanged Disposition: Admitted from ER New Scripts Promethazine Hcl (PROMETHAZINE HCL) 25 Mg Tablet 25 MG PO Q8H PRN for NAUSEA/VOMITING, #12 TAB Prov: JAYDEN PETTIT 11/23/18 Problem Qualifiers Primary Impression: Nausea & vomiting Vomiting type: unspecified Vomiting Intractability: unspecified Qualified Codes: R11.2 - Nausea with vomiting, unspecified JAYDEN PETTIT Nov 23, 2018 19:04
[2018-11-23] MEDS ORDERED: PROMETHAZINE 25 MG/ML 1 ML AMP IVP ONE (19:20)
[2018-11-23] MEDS ORDERED: NS(*) 0.9% 1000 ML BAG 1,000 ML IV ONE ×2 (19:20→21:36)
[2018-11-23] MEDS ORDERED: MAGIC MOUTHWASH 90 ML BTL PO ONE (19:50)
[2018-11-23 20:38] LABS: PLATELET COUNT, AUTOMATED 250 K/uL (150-450)
[2018-11-23] MEDS ORDERED: IOPAMIDOL 76% 100 ML INFUS BTL 100 ML ONE (20:38)
[2018-11-23] MEDS ORDERED: POTASSIUM CHL 20 MEQ TABCR PO ONE (21:00)
[2018-11-23] MEDS ORDERED: KCL (*) 20 MEQ/100 ML PREMIX 100 ML IV ONE (21:00)
--- NOTE | 2018-11-23 21:31 | RADIOLOGY IMAGING REPORT ---
FACILITY: [facility] [place] PATIENT NAME: Pia Angel : 1965 MR: [id number] V: [id number] EXAM DATE: ORDERING PHYSICIAN: JAYDEN PETTIT TECHNOLOGIST: Location: [facility] Patient: Pia Angel : 1965 Visit/Account:[id number] Date of Sevice: 11/23/2018 CT ABDOMEN PELVIS W/ CON HISTORY:Epigastric abdominal pain TECHNIQUE: CT abdomen and pelvis with intravenous contrast. Contiguous axial images of the abdomen and pelvis was performed from the lung bases to the symphysis pubis. One of the following dose optimization techniques was utilized in the performance of this exam: Autom ated exposure control; adjustment of the mA and/or kV according to the patient's size; or use of an i terative reconstruction technique. Specific details can be referenced in the facility's radiology C T exam operational policy. CONTRAST: 75 cc of Isovue-370 COMPARISON: 12/31/2017 FINDINGS: Visualized lung bases: There is a small hiatal hernia. Hepatobiliary: Liver is enlarged measures 20.1 cm in craniocaudal length with fatty infiltration. G allbladder and bile ducts are unremarkable. Spleen: Negative. Adrenals: 3.3 x 2.2 cm low-density left adrenal adenoma is once again noted. Kidneys/: Small cyst superior pole right kidney is noted. Pancreas: Negative. GI: There is no bowel obstruction or focal inflammation. Appendix is normal. Vessels/spaces/nodes: Atherosclerotic calcification is noted. Bones/soft tissues: Degenerative changes are noted particularly L5-S1. IMPRESSION: 1. No acute pathology in the abdomen or pelvis. 2. The appendix is visualized and is normal. 3. Numerous other chronic findings are described above Report Dictated By: Dmitriy Hunter MD at 11/23/2018 9:20 PM Report E-Signed By: Dmitriy Hunter MD at 11/23/2018 9:27 PM WSN:[facility]
[2018-11-23] MEDS ORDERED: PROM-110 PO (21:48)
[2018-11-23] MEDS ORDERED: NS(*) 0.9% 1000 ML BAG 1,000 ML IV PRN (22:33)
[2018-11-23] MEDS ORDERED: PROMETHAZINE 25 MG/ML 1 ML AMP IVP PRN (22:35)
[2018-11-23] MEDS ORDERED: PANTOPRAZOLE SOD 40 MG IV VIAL IVP SCH (22:35)
[2018-11-23] MEDS ORDERED: SUCRALFATE 1 GM TAB PO PRN (22:35)
[2018-11-23] MEDS ORDERED: ACETAMINOPHEN(*)1000 MG/100 ML 100 ML IVPB PRN (22:35)
[2018-11-23] MEDS ORDERED: LIDOCAINE 2% VISC SLN 15ML UDC PO PRN (22:35)
[2018-11-23] MEDS ORDERED: INFLUENZA VIRUS VAC 0.5ML SYR IM ONLY ONE (22:35)
[2018-11-23] MEDS ORDERED: NICOTINE 21 MG/24 HR PATCH TD SCH (22:50)
--- NOTE | 2018-11-23 23:03 | History & Physical ---
History of Present Illness History of Present Illness 52yo female with a h/o PUD and hyperthyroidism who came to the ER for n/v/d/abd pain. Her symptom started at about 3am. She has n/v/d/abd pain since then. The vomiting and diarrhea have been too numerous to count. She went to the ER this morning and was sent home on Protonix bid, oral Zofran and MI Phenergan. She couldn't afford the Phenergan. The Zofran didn't help. She came back to the ER. She denies any blood in her vomitus or diarrhea. She denies melena. She has had some dark colored vomitus. She reports being sweaty. She denies any sick contacts or worrisome food exposures. She denies any new medications. She denies NSAID use. In the ER, she was given IVF, Phenergan, IV/PO potassium and magic mouthwash. She was seen by staff gagging herself. Last BM was before going to the ER. History Problems: (1) Peptic ulcer disease Status: Chronic (2) COPD (chronic obstructive pulmonary disease) Status: Chronic (3) Hyperthyroidism Status: Chronic Home Meds Active Scripts Pantoprazole Sodium (PANTOPRAZOLE SODIUM) 40 Mg Tablet.dr, 40 MG PO BID for 30 Days, #60 TAB.SR Prov:ELTON MADRID DO 11/23/18 Ondansetron 4 Mg Odt (ONDANSETRON 4 MG ODT) 4 Mg Tab.rapdis, 4 MG PO Q4-6H PRN for NAUSEA/VOMITING, #20 TAB Prov:ELTON MADRID DO 11/23/18 Methimazole (METHIMAZOLE) 10 Mg Tablet, 5 MG PO SuTuThSa@2100 for 30 Days, Prov:RUBI FLORES MD 12/24/17 Methimazole (METHIMAZOLE) 10 Mg Tablet, 10 MG PO MoWeFr@2100 for 30 Days, Prov:RUBI FLORES MD 12/24/17 Reported Medications Multivitamin (One-Daily Multi-Vitamin) 1 Each Tablet, 1 CAP QDAY 05/13/18 Gabapentin (GABAPENTIN) 300 Mg Capsule, 300 MG PO TID, CAPSULE 12/21/17 Trazodone Hcl (TRAZODONE HCL) 50 Mg Tablet, 150 MG PO QHS 12/21/17 Cholecalciferol (Vitamin D3) (VITAMIN D) 1,000 Unit Capsule, 1000 UNIT PO QDAY, CAPSULE 09/05/16 Melatonin (MELATONIN) 3 Mg Tablet.er, 3 MG PO QHS 09/05/16 Discontinued Reported Medications Pantoprazole Sodium (PANTOPRAZOLE SODIUM) 40 Mg Tablet.dr, 40 MG PO QDAY, TAB.SR 09/05/18 Discontinued Scripts Promethazine Hcl (PROMETHAZINE HCL) 25 Mg Tablet, 25 MG PO Q8H PRN for NAUSEA/VOMITING, #12 TAB Prov:JAYDEN PETTIT [employer]STRUCTION PROJECT ASSISTANT 11/23/18 Promethazine HCl (Phenergan) 25 Mg Supp.rect, 1 SUPP.RECT MI Q8-12H PRN for NAUSEA/VOMITING, #20 SUPP.RECT Prov:ELTON MADRID DO 11/23/18 Allergies: Coded Allergies: No Known Drug Allergies (Unverified , 11/23/18) Patient History: Patient reports no known family medical history. Hx Smoking: Yes (1PPD X 35) Smoking Status: Current: Every Day Smoker Caffeine Intake: Coffee, Soda Caffeine/Cups Per Day: 2-3 cups per day Hx Alcohol Use: Yes (RARE) Hx Substance Use Disorder: No Social Drug Use: Never Review of Systems All Systems Reviewed/Normal: Yes, Except as Noted Exam Vital Signs Vital Signs Date Time Temp Pulse Resp B/P (MAP) Pulse Ox O2 Delivery O2 Flow Rate FiO2 11/23/18 21:19 112/94 (100) 11/23/18 21:00 91 11/23/18 20:30 76 11/23/18 18:58 98.6 20 Room Air General Appearance: Other (Eyes closed and sleepy. Answers questions, but sometimes has to be awakened. Breathing comfortably.) Neuro: No Gross deficits Eyes: PERRLA ENT: Moist Mucous Membranes Cardiovascular: Regular Rate and Rhythm Respiratory: Clear to Auscultation GI: Other (Soft, non-distended, reports epigastric pain with palpation. No per iotoneal signs/guarding) Extremities: No Edema Integumentary: No Jaundice, No Cyanosis Medical Decision Making Data Points Result Diagram: 11/23/18202911/23/182029 Item Value Date Time Neutrophils (%) (Auto) 86.0 % H 11/23/182029 Lymphocytes (%) (Auto) 9.5 % L 11/23/182029 Monocytes (%) (Auto) 4.2 % 11/23/182029 Erythrocyte Sedimentation Rate 27 mm/HOUR 11/23/182029 C-Reactive Protein < 0.5 mg/dl 11/23/182029 Amylase Level 76 U/L 11/23/182029 Lipase 37 U/L 11/23/182029 Aspartate Amino Transf (AST/SGOT) 25 U/L 11/23/182029 Alanine Aminotransferase (ALT/SGPT) 31 U/L 11/23/182029 Total Bilirubin 0.5 mg/dl 11/23/182029 Alkaline Phosphatase 88 U/L 11/23/182029 EKG / Imaging Imaging CT abd/pelvis - 1. No acute pathology in the abdomen or pelvis. 2. The appendix is visualized and is normal. 3. Numerous other chronic findings are described above Assessment and Plan Problems: (1) Nausea & vomiting Status: Acute Assessment & Plan: She presented with intractable n/v with diarrhea and abdominal pain since 0300 the day of admission. She is afebrile, has a normal WBC/ESR/CRP/CT abd. She has a benign abdominal exam, but some mild discomfort epigastrically. Likely, she has a viral gastroenteritis or food born toxin ingestion. Hydrate. Phenergan for nausea. Check CMP/H. Pylori in the morning. Will try Carafate slurry with Viscous lidocaine for pain. Protonix 40mg IV bid. (2) Abdominal pain Status: Acute Assessment & Plan: Secondary to above. No worrisome exam findings, lab findings or CT findings. See above. (3) Hypokalemia Status: Acute Assessment & Plan: Secondary to vomiting. Replace with IV KCL. Check Mg and K in the morning. (4) Peptic ulcer disease Status: Chronic Assessment & Plan: About a year ago, she was admitted for similar symptoms. She had an EGD that showed some esophageal inflammation and small gastric ulcers. She was sent home on Carafate and Protonix bid. She never got a f/u EGD, but has reportedly done well. It is unclear what she is taking for prophylaxis. She denies any NSAID use. She does continue to smoke. (5) Hyperthyroidism Status: Chronic Assessment & Plan: Hold methimazole while nauseated. (6) Tobacco use Status: Chronic Assessment & Plan: She smokes 1ppd. Will use a nicotine patch at 21mg while in the hospital. (7) Dyssomnia Status: Chronic Assessment & Plan: Chronically on Trazodone and melatonin, which will be held. Copies to: MALENA MONTANO MD ; Venous Thromboembolism Antithrombotics Is Pt On Any Antithrombotics?: No Exam Sepsis Risk: No Definite Risk Problem Qualifiers (1) Nausea & vomiting: Vomiting type: unspecified Vomiting Intractability: unspecified Qualified Codes: R11.2 - Nausea with vomiting, unspecified RUBI FLORES MD Nov 23, 2018 23:03
[2018-11-23 23:05] VITALS: BP 146/90
[2018-11-23] MEDS: CALCIUM CARBONATE 500 MG CHEW PO PRN (23:36)
[2018-11-23] MEDS: KCL (*) 20 MEQ/100 ML PREMIX 100 ML IV SCH (23:36)
[2018-11-24] MEDS: KCL (*) 20 MEQ/100 ML PREMIX 100 ML IV SCH (02:03)
[2018-11-24 05:41] VITALS: BP 148/79
[2018-11-24] MEDS: CALCIUM CARBONATE 500 MG CHEW PO PRN (05:53)
[2018-11-24 06:04] LABS: PLATELET COUNT, AUTOMATED 201 K/uL (150-450)
[2018-11-24 06:40] VITALS: BP 142/67
[2018-11-24] MEDS ORDERED: PANTOPRAZOLE SOD 20 MG TABEC PO SCH ×2 (09:30→10:30)
--- NOTE | 2018-11-24 10:12 | Hospitalist Progress Note ---
Subjective Progress Notes Subjective This patient was admitted for nausea and vomiting. She had no acute issues overnight. Patient Complains of: Cardiovascular: No: Chest Pain Respiratory: No: Shortness of Breath Physical Exam Vital Signs Date Time Temp Pulse Resp B/P (MAP) Pulse Ox O2 Delivery O2 Flow Rate FiO2 11/24/18 07:35 93 Room Air 11/24/18 06:40 98.9 67 16 142/67 (92) Intake and Output 11/24/18 07:00 Intake Total 931 ml Balance 931 ml Intake IV Total 931 ml Cardiovascular: Regular Rate and Rhythm Respiratory: Clear to Auscultation GI: Soft and Non-Tender Result Diagram: 11/24/18 0553 11/24/18 0553 Assessment and Plan Problems: (1) Nausea & vomiting Onset Date: 12/21/2017 Status: Acute Assessment & Plan: She presented with intractable n/v with diarrhea and abdominal pain since 0300 the day of admission. She is receiving supportive treatment for gastroenteritis. We will try to advance her diet today. (2) Abdominal pain Onset Date: 12/21/2017 Status: Acute Assessment & Plan: Secondary to above. No worrisome exam findings, lab findings or CT findings. (3) Hypokalemia Onset Date: ~ 12/21/2017 Status: Acute Assessment & Plan: Improved with supplementation. (4) Peptic ulcer disease Status: Chronic Assessment & Plan: About a year ago, she was admitted for similar symptoms. She had an EGD that showed some esophageal inflammation and small gastric ulcers. She was sent home on Carafate and Protonix bid. She never got a f/u EGD, but has reportedly done well. It is unclear what she is taking for prophylaxis. She denies any NSAID use. She does continue to smoke. (5) Hyperthyroidism Status: Chronic Assessment & Plan: Hold methimazole while nauseated. (6) Tobacco use Status: Chronic Assessment & Plan: She smokes 1ppd. Will use a nicotine patch at 21mg while in the hospital. (7) Dyssomnia Status: Chronic Assessment & Plan: Chronically on Trazodone and melatonin, which will be held. Exam Sepsis Risk: No Definite Risk Problem Qualifiers (1) Nausea & vomiting: Vomiting type: unspecified Vomiting Intractability: unspecified Qualified Codes: R11.2 - Nausea with vomiting, unspecified ALEXANDRIA RODRIGUEZ DO Nov 24, 2018 10:12
[2018-11-24 10:42] VITALS: BP 146/89
[2018-11-24] MEDS ORDERED: BENZOCAINE/MENTHOL 1 EACH LOZG PO PRN (11:05)
[2018-11-24] MEDS ORDERED: PROM-110 PO (13:22)
--- NOTE | 2018-11-24 13:25 | Hospitalist Depart ---
Discharge Summary Reason for Hosp/Final Diag: (1) Nausea & vomiting Onset Date: 12/21/2017 Status: Acute Hospital Course & Plan: She presented with intractable n/v with diarrhea and abdominal pain. A CT scan was unremarkable. She will discharge with Phenergan as needed. (2) Abdominal pain Onset Date: 12/21/2017 Status: Acute Hospital Course & Plan: Secondary to above. No worrisome exam findings, lab findings or CT findings. (3) Hypokalemia Onset Date: ~ 12/21/2017 Status: Acute Hospital Course & Plan: Improved with supplementation. (4) Peptic ulcer disease Status: Chronic Hospital Course & Plan: She is on chronic treatment with Protonix (5) Hyperthyroidism Status: Chronic Hospital Course & Plan: She is on chronic treatment with methimazole. (6) Tobacco use Status: Chronic (7) Dyssomnia Status: Chronic Hospital Course & Plan: She is on chronic treatment with trazodone and melatonin. Departure Latest Vital Signs Vital Signs 11/24/18 11/24/18 10:42 12:14 Temp 98.5 Pulse 82 Resp 20 B/P (MAP) 146/89 (108) Pulse Ox 93 O2 Delivery Room Air Weight (Pounds): 205 Result Diagram: 11/24/1855211/24/18552 Condition: Improved Discharge: Home, Self Care Discharge Instructions Home Meds Active Scripts Promethazine Hcl (PROMETHAZINE HCL) 25 Mg Tablet, 25 MG PO Q8H PRN for NAUSEA, #10 TAB Prov:ALEXANDRIA RODRIGUEZ DO 11/24/18 Pantoprazole Sodium (PANTOPRAZOLE SODIUM) 40 Mg Tablet.dr, 40 MG PO BID for 30 Days, #60 TAB.SR Prov:ELTON MADRID DO 11/23/18 Ondansetron 4 Mg Odt (ONDANSETRON 4 MG ODT) 4 Mg Tab.rapdis, 4 MG PO Q4-6H PRN for NAUSEA/VOMITING, #20 TAB Prov:ELTON MADRID DO 11/23/18 Methimazole (METHIMAZOLE) 10 Mg Tablet, 5 MG PO SuTuThSa@2100 for 30 Days, Prov:RUBI FLORES MD 12/24/17 Methimazole (METHIMAZOLE) 10 Mg Tablet, 10 MG PO MoWeFr@2100 for 30 Days, Prov:RUBI FLORES MD 12/24/17 Reported Medications Multivitamin (One-Daily Multi-Vitamin) 1 Each Tablet, 1 CAP QDAY 05/13/18 Gabapentin (GABAPENTIN) 300 Mg Capsule, 300 MG PO TID, CAPSULE 12/21/17 Trazodone Hcl (TRAZODONE HCL) 50 Mg Tablet, 150 MG PO QHS 12/21/17 Cholecalciferol (Vitamin D3) (VITAMIN D) 1,000 Unit Capsule, 1000 UNIT PO QDAY, CAPSULE 09/05/16 Melatonin (MELATONIN) 3 Mg Tablet.er, 3 MG PO QHS 09/05/16 Discontinued Reported Medications Pantoprazole Sodium (PANTOPRAZOLE SODIUM) 40 Mg Tablet.dr, 40 MG PO QDAY, TAB.SR 09/05/18 Discontinued Scripts Promethazine Hcl (PROMETHAZINE HCL) 25 Mg Tablet, 25 MG PO Q8H PRN for NAUSEA/VOMITING, #12 TAB Prov:JAYDEN PETTIT 11/23/18 Promethazine HCl (Phenergan) 25 Mg Supp.rect, 1 SUPP.RECT [place] Q8-12H PRN for NAUSEA/VOMITING, #20 SUPP.RECT Prov:ELTON MADRID DO 11/23/18 Diet: Regular Activity: As Tolerated Venous Thromboembolism Antithrombotics Is Pt On Any Antithrombotics?: No Problem Qualifiers (1) Nausea & vomiting: Vomiting type: unspecified Vomiting Intractability: unspecified Qualified Codes: R11.2 - Nausea with vomiting, unspecified ALEXANDRIA RODRIGUEZ DO Nov 24, 2018 13:25
[2018-11-24] MEDS ORDERED: PATCH REMOVAL 1 EA TP SCH (21:00)
== END 2018-11-24 13:22 | disposition home or self-care (01) ==
LOC: ER 18:56 → MED 22:38 → INTOOBSV 22:38
PROVIDERS: ADMIT Internal Medicine; ATTEND Internal Medicine
DX: E87.6 Hypokalemia (principal); R11.2 Nausea with vomiting, unspecified; K25.7 Chronic gastric ulcer without hemorrhage or perforation; Z72.0 Tobacco use; G47.9 Sleep disorder, unspecified
CPT/HCPCS: 36415; 74177; 82150; 83690; 83735; 85025; 85651; 86140; 86677; 96361; 96365; 96366; 96375; 99284; C9113; G0378; J0131; J2550; J3480; J7030; Q9967; 82040; 82247; 82310; 82374; 82435; 82565; 82947; 84075; 84132; 84155; 84295; 84450; 84460; 84520

== ENCOUNTER 2018-11-28 10:08 | Emergency (ER) | payer SELFPAY ==
[2017-12-22 10:53] VITALS: Wt 93.0 kg
--- NOTE | 2018-11-28 10:18 | ER Report ---
History and Physical Time Seen By MD: 10:17 HPI/ROS CHIEF COMPLAINT: Vomiting HISTORY OF PRESENT ILLNESS: The patient with recent admission to the hospital on the and 24 of November for intractable nausea vomiting and some diarrhea. She was apparently discharged on November 24 with a prescription for rectal promethazine after fluid and potassium replacement. He returns to the emergency department for evaluation for persistent vomiting. Patient states that she was feeling better Saturday and however last night into this morning she began with intractable vomiting again. She is also reporting diarrhea with "blood in her stool". She states that she does have periumbilical abdominal discomfort with these symptoms. She states that she has not been able to keep anything down all this morning. She does present with a emesis bag that appears to have at the time of initial evaluation approximately 2 ounces of clear fluid. No fecal material noted and no food particles noted in the emesis. Denies any recent antibiotic use she denies any recent travel history. REVIEW OF SYSTEMS: Constitutional: No fever, no chills. Eyes: No discharge. ENT: No sore throat. Cardiovascular: No chest pain, no palpitations. Respiratory: No cough, no shortness of breath. Gastrointestinal: No vomiting, periumbilical abdominal pain. Blood in the stools Allergies: Coded Allergies: No Known Drug Allergies (Unverified , 11/23/18) Home Meds Active Scripts Promethazine Hcl (PROMETHAZINE HCL) 25 Mg Tablet, 25 MG PO Q8H PRN for NAUSEA, #10 TAB Prov:ALEXANDRIA RODRIGUEZ DO 11/24/18 Pantoprazole Sodium (PANTOPRAZOLE SODIUM) 40 Mg Tablet.dr, 40 MG PO BID for 30 Days, #60 TAB.SR Prov:ELTON MADRID DO 11/23/18 Ondansetron 4 Mg Odt (ONDANSETRON 4 MG ODT) 4 Mg Tab.rapdis, 4 MG PO Q4-6H PRN for NAUSEA/VOMITING, #20 TAB Prov:ELTON MADRID DO 11/23/18 Methimazole (METHIMAZOLE) 10 Mg Tablet, 5 MG PO SuTuThSa@2100 for 30 Days, Prov:RUBI FLORES MD 12/24/17 Methimazole (METHIMAZOLE) 10 Mg Tablet, 10 MG PO MoWeFr@2100 for 30 Days, Prov:RUBI FLORES MD 12/24/17 Reported Medications Multivitamin (One-Daily Multi-Vitamin) 1 Each Tablet, 1 CAP QDAY 05/13/18 Gabapentin (GABAPENTIN) 300 Mg Capsule, 300 MG PO TID, CAPSULE 12/21/17 Trazodone Hcl (TRAZODONE HCL) 50 Mg Tablet, 150 MG PO QHS 12/21/17 Cholecalciferol (Vitamin D3) (VITAMIN D) 1,000 Unit Capsule, 1000 UNIT PO QDAY, CAPSULE 09/05/16 Melatonin (MELATONIN) 3 Mg Tablet.er, 3 MG PO QHS 09/05/16 Discontinued Reported Medications Pantoprazole Sodium (PANTOPRAZOLE SODIUM) 40 Mg Tablet.dr, 40 MG PO QDAY, TAB.SR 09/05/18 Discontinued Scripts Promethazine Hcl (PROMETHAZINE HCL) 25 Mg Tablet, 25 MG PO Q8H PRN for NAUSEA/VOMITING, #12 TAB Prov:JAYDEN PETTIT LACE SEWER 11/23/18 Promethazine HCl (Phenergan) 25 Mg Supp.rect, 1 SUPP.RECT [place] Q8-12H PRN for NAUSEA/VOMITING, #20 SUPP.RECT Prov:ELTON MADRID DO 11/23/18 Past Medical/Surgical History Past medical hx of meningitis 2010, migraines, pneumonia 2013, GERD, ulcers, hiatal hernia, arthritis, right wrist and right ankle fracture, thyroid disorder, Graves disease, . Past surgical hx of colonoscopy with polyp removal, hysterectomy 2018, tubal ligation 1997. Hx Smoking: Yes (1PPD X 35) Smoking Status: Current: Every Day Smoker Hx Substance Use Disorder: No Hx Alcohol Use: Yes (RARE) Constitutional Vital Sign - Last 24 Hours 11/28/18 11/28/18 11/28/18 11/28/18 10:13 10:15 10:30 11:38 Temp 97.9 Pulse 70 82 Resp 22 B/P (MAP) 143/114 143/114 (124) 150/82 (104) Pulse Ox 98 Physical Exam General Appearance: The patient is alert, has no immediate need for airway protection and no signs of toxicity. Patient anxious appearing and tearful Eyes: No jaundice noted ENT, Mouth: Mucous membranes are moist. Respiratory: There are no retractions, lungs are clear to auscultation. Cardiovascular: Regular rate and rhythm. Gastrointestinal: Patient with complaint of periumbilical abdominal pain, normal bowel sounds no appreciable peritoneal signs or guarding were noted. Neurological: Awake and alert Skin: Warm and dry, no rashes. Musculoskeletal: Neck is supple non tender. Extremities are nontender, nonswollen and have full range of motion. Medical Decision Making Data Points Result Diagram: 11/28/18 1108 11/28/18 1108 Laboratory Hematology Test 11/28/18 10:13 11/28/18 10:50 11/28/18 11:08 Urine Color Yellow Urine Clarity Clear Urine pH 8.0 pH (4.8-9.5) Urine Specific [place] 1.017 Urine Protein Negative mg/dL (NEGATIVE) Urine Glucose (UA) Negative mg/dL (NEGATIVE) Urine Ketones Negative mg/dL (NEGATIVE) Urine Blood Negative (NEGATIVE) Urine Nitrite Negative (NEGATIVE) Urine Bilirubin Negative (NEGATIVE) Urine Urobilinogen Negative mg/dL (0.2-1.9) Urine Leukocyte Esterase Negative (NEGATIVE) Urine RBC <1 /HPF (0-2/HPF) Urine WBC <1 /HPF (0-5/HPF) Urine Squamous Epithelial Cells None /LPF (</=FEW) Urine Bacteria Negative /HPF (NONE-FEW) Urine Mucus Few /HPF (NONE-FEW) Stool Occult Blood (IFOB) Positive (NEGATIVE) Red Blood Count 5.35 M/uL (4.17-5.56) Mean Corpuscular Volume 83.7 fL (80.0-96.0) Mean Corpuscular Hemoglobin 28.4 pg (26.0-33.0) Mean Corpuscular Hemoglobin Concent 33.9 g/dL (32.0-36.0) Red Cell Distribution Width 14.8 % (11.5-14.5) Mean Platelet Volume 9.1 fL (7.2-11.1) Neutrophils (%) (Auto) 88.1 % (39.4-72.5) Lymphocytes (%) (Auto) 8.4 % (17.6-49.6) Monocytes (%) (Auto) 2.7 % (4.1-12.4) Eosinophils (%) (Auto) 0.5 % (0.4-6.7) Basophils (%) (Auto) 0.3 % (0.3-1.4) Nucleated RBC Relative Count (auto) 0.0 /100WBC Neutrophils # (Auto) 9.6 K/uL (2.0-7.4) Lymphocytes # (Auto) 0.9 K/uL (1.3-3.6) Monocytes # (Auto) 0.3 K/uL (0.3-1.0) Eosinophils # (Auto) 0.1 K/uL (0.0-0.5) Basophils # (Auto) 0.0 K/uL (0.0-0.1) Nucleated RBC Absolute Count (auto) 0.00 K/uL Sodium Level 143 mmol/L (137-145) Potassium Level 3.5 mmol/L (3.5-5.0) Chloride Level 107 mmol/L (98-107) Carbon Dioxide Level 22 mmol/L (22-31) Blood Urea Nitrogen 7 mg/dl (7-18) Creatinine 0.50 mg/dl (0.52-1.04) Glomerular Filtration Rate Calc > 60.0 Random Glucose 119 mg/dl (75-110) Calcium Level 9.3 mg/dl (8.4-10.2) Total Bilirubin 0.4 mg/dl (0.2-1.3) Aspartate Amino Transf (AST/SGOT) 23 U/L (0-35) Alanine Aminotransferase (ALT/SGPT) 37 U/L (0-56) Alkaline Phosphatase 84 U/L (0-126) Total Protein 7.1 g/dl (6.3-8.2) Albumin 4.1 g/dl (3.5-5.0) Lipase 49 U/L (23-300) Helicobacter pylori IgG Antibody Negative (NEGATIVE) Chemistry Test 11/28/18 10:13 11/28/18 10:50 11/28/18 11:08 Urine Color Yellow Urine Clarity Clear Urine pH 8.0 pH (4.8-9.5) Urine Specific [place] 1.017 Urine Protein Negative mg/dL (NEGATIVE) Urine Glucose (UA) Negative mg/dL (NEGATIVE) Urine Ketones Negative mg/dL (NEGATIVE) Urine Blood Negative (NEGATIVE) Urine Nitrite Negative (NEGATIVE) Urine Bilirubin Negative (NEGATIVE) Urine Urobilinogen Negative mg/dL (0.2-1.9) Urine Leukocyte Esterase Negative (NEGATIVE) Urine RBC <1 /HPF (0-2/HPF) Urine WBC <1 /HPF (0-5/HPF) Urine Squamous Epithelial Cells None /LPF (</=FEW) Urine Bacteria Negative /HPF (NONE-FEW) Urine Mucus Few /HPF (NONE-FEW) Stool Occult Blood (IFOB) Positive (NEGATIVE) White Blood Count 11.0 k/uL (4.5-11.0) Red Blood Count 5.35 M/uL (4.17-5.56) Hemoglobin 15.2 g/dL (12.0-16.0) Hematocrit 44.8 % (34.0-47.0) Mean Corpuscular Volume 83.7 fL (80.0-96.0) Mean Corpuscular Hemoglobin 28.4 pg (26.0-33.0) Mean Corpuscular Hemoglobin Concent 33.9 g/dL (32.0-36.0) Red Cell Distribution Width 14.8 % (11.5-14.5) Platelet Count 238 K/uL (150-450) Mean Platelet Volume 9.1 fL (7.2-11.1) Neutrophils (%) (Auto) 88.1 % (39.4-72.5) Lymphocytes (%) (Auto) 8.4 % (17.6-49.6) Monocytes (%) (Auto) 2.7 % (4.1-12.4) Eosinophils (%) (Auto) 0.5 % (0.4-6.7) Basophils (%) (Auto) 0.3 % (0.3-1.4) Nucleated RBC Relative Count (auto) 0.0 /100WBC Neutrophils # (Auto) 9.6 K/uL (2.0-7.4) Lymphocytes # (Auto) 0.9 K/uL (1.3-3.6) Monocytes # (Auto) 0.3 K/uL (0.3-1.0) Eosinophils # (Auto) 0.1 K/uL (0.0-0.5) Basophils # (Auto) 0.0 K/uL (0.0-0.1) Nucleated RBC Absolute Count (auto) 0.00 K/uL Glomerular Filtration Rate Calc > 60.0 Calcium Level 9.3 mg/dl (8.4-10.2) Total Bilirubin 0.4 mg/dl (0.2-1.3) Aspartate Amino Transf (AST/SGOT) 23 U/L (0-35) Alanine Aminotransferase (ALT/SGPT) 37 U/L (0-56) Alkaline Phosphatase 84 U/L (0-126) Total Protein 7.1 g/dl (6.3-8.2) Albumin 4.1 g/dl (3.5-5.0) Lipase 49 U/L (23-300) Helicobacter pylori IgG Antibody Negative (NEGATIVE) Urinalysis Test 11/28/18 10:13 Urine Color Yellow Urine Clarity Clear Urine pH 8.0 pH (4.8-9.5) Urine Specific [place] 1.017 Urine Protein Negative mg/dL (NEGATIVE) Urine Glucose (UA) Negative mg/dL (NEGATIVE) Urine Ketones Negative mg/dL (NEGATIVE) Urine Blood Negative (NEGATIVE) Urine Nitrite Negative (NEGATIVE) Urine Bilirubin Negative (NEGATIVE) Urine Urobilinogen Negative mg/dL (0.2-1.9) Urine Leukocyte Esterase Negative (NEGATIVE) Urine RBC <1 /HPF (0-2/HPF) Urine WBC <1 /HPF (0-5/HPF) Urine Squamous Epithelial Cells None /LPF (</=FEW) Urine Bacteria Negative /HPF (NONE-FEW) Urine Mucus Few /HPF (NONE-FEW) ED Course/Re-evaluation Clinical Indication for ER IV: IV Access ED Course 11/28/2018 10:35:24 am patient with report of intractable vomiting. She was seen here in the emergency department on November 23 this year for similar episodes. She was actually admitted to the hospital secondary to intractable vomiting as well as low potassium. She apparently did well in the hospital on Phenergan which she was discharged with. She states that she was able to keep food down Saturday and but began having recurrence of symptoms today. She states that her last meal was last night and states it was "frozen pizza". 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 She denies knowing of any contacts at work. During watery diarrhea. She states there is also "blood in her stool." P atient is requesting intramuscular Phenergan rather than IV Phenergan. Patient did have imaging study that was done earlier this week which was a CT of the abdomen and pelvis which showed no acute pathology. The remaining blood work other than the potassium was otherwise normal. Plan at this time will be to repeat blood work. We'll do imaging of the abdomen however given her recent CT scan and otherwise benign abdominal findings on physical exam feel that we will go with a KUB to reduce the amount of radiation to the patient. We will give her IM Phenergan and IV fluids. 11/28/2018 12:08:27 pm patient still complaining of nausea vomiting and abdominal pain, she has received IV fluids blood work is unremarkable potassium is 3.5. Awaiting official read of KUB however I do not see any overt signs of obstruction. We will try some IV Reglan and fentanyl for both pain and nausea. I didn't feel that there perhaps is an anxiety component in addition that may be potentially worsening her symptoms. I have not seen any evidence of a large emesis in the department the patient is just continuing to have retching and dry heaves. 11/28/2018 12:30:27 pm patient seems to be sleeping comfortably at this point has received IV fentanyl along with Reglan we'll also give IV Protonix. Patient does have positive Hemoccult in the stool. This certainly could suggest underlying ulcer disease. Likely we'll restart the patient on Protonix if she is not currently taking we'll also treat nausea with Reglan and have her follow-up as an outpatient with general surgery to have an endoscopy performed. 11/28/2018 1:10:09 pm reevaluate the patient he was sleeping. Upon awakening patient still is complaining of some abdominal pain and nausea seems to be of improved. I discussed with patient need for outpatient follow-up with general surgery for an endoscopy in the near future. She states that she "doesn't have money to follow up and has no money for prescriptions. I explained to the patient that I have no criteria for admission at this time and that even with admission it would be unlikely that they would do and endoscopy as an inpatient during this visit. Patient hemodynamically stable blood work is unremarkable KUB shows no evidence of obstruction. We will dispense the patient with some Reglan to go home with further will provide her with contact information for Dr. Powers for potential outpatient endoscopy. Also start the patient on twice per day Protonix. Patient still somewhat somnolent for medications we will arrange for transport by taxi to home. Decision to Disposition Date: Nov 28, 2018 Decision to Disposition Time: 13:13 Depart Departure Latest Vital Signs Vital Signs Date Time Temp Pulse Resp B/P (MAP) Pulse Ox O2 Delivery O2 Flow Rate FiO2 11/28/18 11:38 82 11/28/18 10:30 150/82 (104) 11/28/18 10:13 97.9 22 98 Impression: Primary Impression: Nausea & vomiting Additional Impression: Abdominal pain Condition: Improved Disposition: HOME OR SELF-CARE Referrals: EMMA LOPES DO recommend follow up to establish care SHERI POWERS recommend follow up for evaluation of abdominal pain and possible upper GI endoscopy in 2-4 weeks Patient Instructions: Abdominal Pain (ED) Problem Qualifiers Primary Impression: Nausea & vomiting Vomiting type: unspecified Vomiting Intractability: unspecified Qualified Codes: R11.2 - Nausea with vomiting, unspecified Additional Impression: Abdominal pain Abdominal location: periumbilical Qualified Codes: R10.33 - Periumbilical pain ASA SAHU MD Nov 28, 2018 10:18
[2018-11-28 10:30] VITALS: BP 150/82
[2018-11-28] MEDS ORDERED: NS(*) 0.9% 1000 ML BAG 1,000 ML IV ONE (10:32)
[2018-11-28] MEDS ORDERED: KETOROLAC 15 MG/ML VIAL IVP ONE (10:35)
[2018-11-28] MEDS ORDERED: PROMETHAZINE 25 MG/ML 1 ML AMP IM ONE (10:35)
[2018-11-28 11:20] LABS: PLATELET COUNT, AUTOMATED 238 K/uL (150-450)
[2018-11-28] MEDS ORDERED: PANTOPRAZOLE SOD 40 MG IV VIAL IVP ONE (12:10)
[2018-11-28] MEDS ORDERED: fentaNYL CITR 100 MCG/2 ML AMP IVP ONE (12:10)
[2018-11-28] MEDS ORDERED: METOCLOPRAMIDE 10 MG/2 ML SDV IVP ONE (12:10)
--- NOTE | 2018-11-28 12:15 | RADIOLOGY IMAGING REPORT ---
FACILITY: [facility] [place] PATIENT NAME: Pia Angel : 1965 MR: [id number] V: [id number] EXAM DATE: ORDERING PHYSICIAN: ASA SAHU TECHNOLOGIST: Location: [facility] Patient: Pia Angel : 1965 Visit/Account:[id number] Date of Sevice: 11/28/2018 KUB SINGLE VIEW ABDOMEN History: Abdominal pain. Comparison study: None. Findings: There are no dilated loops of large or small bowel suggest ileus or obstruction. There is gas and feces in the rectum. There is no nephrolithiasis. IMPRESSION: Specific bowel gas pattern without findings of ileus or obstruction. Report Dictated By: Thuan Kwok MD at 11/28/2018 12:10 PM Report E-Signed By: Thuan Kwok MD at 11/28/2018 12:11 PM WSN:[id number]
[2018-11-28] MEDS ORDERED: METOCLOPRAMIDE 10 MG TAB PO ONE (13:25)
[2018-11-28] MEDS ORDERED: PANTOPRAZOLE SOD 40 MG TABEC PO ONE (13:30)
== END 2018-11-28 13:28 | disposition home or self-care (01) ==
LOC: ER 10:18
DX: R11.2 Nausea with vomiting, unspecified (principal); R10.33 Periumbilical pain
CPT/HCPCS: 74018; 81001; 82274; 83690; 85025; 86677; 96361; 96372; 96374; 96375; 99284; C9113; J1885; J2550; J2765; J3010; J7030; J8597; 82040; 82247; 82310; 82374; 82435; 82565; 82947; 84075; 84132; 84155; 84295; 84450; 84460; 84520

== ENCOUNTER 2018-11-28 18:31 | Inpatient (IN) | payer SELFPAY ==
[2017-12-22 10:53] VITALS: Wt 93.0 kg
[2018-11-28] MEDS: PIPERACILLIN/TAZO*3.375GM VIAL 3.375 GM in NS(*) 0.9% 100 ML MINI-BAG 100 ML IVPB SCH
[2018-11-28] MEDS ORDERED: HALOPERIDOL LACT 5 MG/ML VIAL IM ONE (18:45)
[2018-11-28] MEDS ORDERED: NS(*) 0.9% 1000 ML BAG 1,000 ML IV ONE (19:20)
[2018-11-28] MEDS ORDERED: KCL (*) 20 MEQ/100 ML PREMIX 100 ML IV ONE (19:30)
--- NOTE | 2018-11-28 19:44 | EKG ---
FACILITY: [facility] PATIENT NAME: KISHORE WEBBER : [id number] MR: [id number] V: [id number] EXAM DATE: ORDERING PHYSICIAN: JAQUI CARDOZA TECHNOLOGIST: HELADIO Test Reason : N Blood Pressure : / mmHG Vent. Rate : 070 BPM Atrial Rate : 083 BPM P-R Int : 140 ms QRS Dur : 096 ms QT Int : 446 ms P-R-T Axes : 076 071 070 degrees QTc Int : 481 ms It appears there may be two competing atrial focii One apparent junctional complex as well Prolonged QT Abnormal ECG Confirmed by EVELINA MALONE ([id number] on 11/28/2018 8:28:15 PM Referred By: Confirmed By:EVELINA MALONE
[2018-11-28 19:53] LABS: PLATELET COUNT, AUTOMATED 279 K/uL (150-450)
[2018-11-28] MEDS ORDERED: MAGNESIUM SUL/D5W* 1 GM/100 ML 100 ML IVPB ONE (19:55)
[2018-11-28] MEDS ORDERED: IOPAMIDOL 76% 100 ML INFUS BTL 100 ML ONE (20:23)
--- NOTE | 2018-11-28 21:15 | ER Report ---
History and Physical Time Seen By MD: 18:35 Hx. of Stated Complaint: VOMITING HPI/ROS CHIEF COMPLAINT: Nausea, vomiting, diarrhea, abdominal pain HISTORY OF PRESENT ILLNESS: Patient is a 52-year-old female who presents to ED with a 6 day history of nausea, vomiting, diarrhea, abdominal pain. She was seen in the ER 5 days ago and admitted to the hospital for intractable nausea and vomiting. She did have a normal CT at that time. She did have some hypokalemia the result was supplementation. Patient states that after she was discharged 4 days ago she did feel better for a couple days but then started having some more nausea and vomiting. She states that this worsened last night. She was seen in the emergency department this morning and prescribed nausea medication. She states that she has been unable to tolerate any of the medication and unable to afford some of the other medications are given to her. She denies any dysuria or hematuria. She has not noted any fever. She did have a previous hospitalization about a year ago for similar complaints and did have ulcers identified on endoscopy. She has not had a follow-up EGD since. Patient is asking to be admitted. REVIEW OF SYSTEMS: Constitutional: No fever, no chills. Eyes: No discharge. ENT: No sore throat. Cardiovascular: No chest pain, no palpitations. Respiratory: No cough, no shortness of breath. Gastrointestinal: See history of present illness. Genitourinary: See history of present illness. Musculoskeletal: No back pain. Skin: No rashes. Neurological: No headache. Allergies: Coded Allergies: No Known Drug Allergies (Unverified , 11/23/18) Home Meds Active Scripts Promethazine Hcl (PROMETHAZINE HCL) 25 Mg Tablet, 25 MG PO Q8H PRN for NAUSEA, #10 TAB Prov:ALEXANDRIA RODRIGUEZ DO 11/24/18 Pantoprazole Sodium (PANTOPRAZOLE SODIUM) 40 Mg Tablet.dr, 40 MG PO BID for 30 Days, #60 TAB.SR Prov:ETLON MADRID DO 11/23/18 Ondansetron 4 Mg Odt (ONDANSETRON 4 MG ODT) 4 Mg Tab.rapdis, 4 MG PO Q4-6H PRN for NAUSEA/VOMITING, #20 TAB Prov:ELTON MADRID DO 11/23/18 Methimazole (METHIMAZOLE) 10 Mg Tablet, 5 MG PO SuTuThSa@2100 for 30 Days, Prov:RUBI FLORES MD 12/24/17 Methimazole (METHIMAZOLE) 10 Mg Tablet, 10 MG PO MoWeFr@2100 for 30 Days, Prov:RUBI FLORES MD 12/24/17 Reported Medications Multivitamin (One-Daily Multi-Vitamin) 1 Each Tablet, 1 CAP QDAY 05/13/18 Gabapentin (GABAPENTIN) 300 Mg Capsule, 300 MG PO TID, CAPSULE 12/21/17 Trazodone Hcl (TRAZODONE HCL) 50 Mg Tablet, 150 MG PO QHS 12/21/17 Cholecalciferol (Vitamin D3) (VITAMIN D) 1,000 Unit Capsule, 1000 UNIT PO QDAY, CAPSULE 09/05/16 Melatonin (MELATONIN) 3 Mg Tablet.er, 3 MG PO QHS 09/05/16 Discontinued Reported Medications Pantoprazole Sodium (PANTOPRAZOLE SODIUM) 40 Mg Tablet.dr, 40 MG PO QDAY, TAB.SR 09/05/18 Discontinued Scripts Promethazine Hcl (PROMETHAZINE HCL) 25 Mg Tablet, 25 MG PO Q8H PRN for NAUSEA/VOMITING, #12 TAB Prov:JAYDEN PETTIT DIRECTOR OF ASSESSMENT 11/23/18 Promethazine HCl (Phenergan) 25 Mg Supp.rect, 1 SUPP.RECT [place] Q8-12H PRN for NAUSEA/VOMITING, #20 SUPP.RECT Prov:ELTON MADRID DO 11/23/18 Reviewed Nurses Notes: Yes Old Medical Records Reviewed: Yes Hx Smoking: Yes (1PPD X 35) Smoking Status: Current: Every Day Smoker Hx Substance Use Disorder: No Hx Alcohol Use: Yes (RARE) Constitutional Vital Sign - Last 24 Hours 11/28/18 11/28/18 18:35 20:48 Temp 98.3 Pulse 73 83 Resp 18 16 B/P (MAP) 159/77 139/63 (88) Pulse Ox 96 93 O2 Delivery Room Air Nasal Cannula O2 Flow Rate 2 Physical Exam General Appearance: The patient is alert, has no immediate need for airway protection and no signs of toxicity. Patient appears to be no acute distress. Eyes: Pupils equal and round no pallor or injection. ENT, Mouth: Mucous membranes are moist. Respiratory: There are no retractions, lungs are clear to auscultation. Cardiovascular: Regular rate and rhythm. Gastrointestinal: There is epigastric tenderness with palpation. No rebound or guarding is present. Skin: Warm and dry, no rashes. Musculoskeletal: Neck is supple non tender. Extremities are nontender, nonswollen and have full range of motion. DIFFERENTIAL DIAGNOSIS: After history and physical exam differential diagnosis was considered for abdominal pain including but not limited to appendicitis, cholecystitis, gastritis and urinary tract infection. Medical Decision Making Data Points Result Diagram: 11/28/18191011/28/181910 Laboratory Hematology Test 11/28/18 19:11 11/28/18 19:16 Red Blood Count 5.39 M/uL (4.17-5.56) Mean Corpuscular Volume 82.6 fL (80.0-96.0) Mean Corpuscular Hemoglobin 28.2 pg (26.0-33.0) Mean Corpuscular Hemoglobin Concent 34.1 g/dL (32.0-36.0) Red Cell Distribution Width 14.8 % (11.5-14.5) Mean Platelet Volume 9.8 fL (7.2-11.1) Neutrophils (%) (Auto) 90.7 % (39.4-72.5) Lymphocytes (%) (Auto) 6.6 % (17.6-49.6) Monocytes (%) (Auto) 2.4 % (4.1-12.4) Eosinophils (%) (Auto) 0.0 % (0.4-6.7) Basophils (%) (Auto) 0.3 % (0.3-1.4) Nucleated RBC Relative Count (auto) 0.0 /100WBC Neutrophils # (Auto) 11.2 K/uL (2.0-7.4) Lymphocytes # (Auto) 0.8 K/uL (1.3-3.6) Monocytes # (Auto) 0.3 K/uL (0.3-1.0) Eosinophils # (Auto) 0.0 K/uL (0.0-0.5) Basophils # (Auto) 0.0 K/uL (0.0-0.1) Nucleated RBC Absolute Count (auto) 0.00 K/uL Sodium Level 140 mmol/L (137-145) Potassium Level 3.0 mmol/L (3.5-5.0) Chloride Level 101 mmol/L (98-107) Carbon Dioxide Level 24 mmol/L (22-31) Blood Urea Nitrogen 5 mg/dl (7-18) Creatinine 0.50 mg/dl (0.52-1.04) Glomerular Filtration Rate Calc > 60.0 Random Glucose 124 mg/dl (75-110) Calcium Level 9.8 mg/dl (8.4-10.2) Total Bilirubin 0.5 mg/dl (0.2-1.3) Aspartate Amino Transf (AST/SGOT) 23 U/L (0-35) Alanine Aminotransferase (ALT/SGPT) 32 U/L (0-56) Alkaline Phosphatase 102 U/L (0-126) Total Protein 7.3 g/dl (6.3-8.2) Albumin 4.3 g/dl (3.5-5.0) Lipase 42 U/L (23-300) Magnesium Level 1.5 mg/dl (1.7-2.2) Chemistry Test 11/28/18 19:11 11/28/18 19:16 White Blood Count 12.3 k/uL (4.5-11.0) Red Blood Count 5.39 M/uL (4.17-5.56) Hemoglobin 15.2 g/dL (12.0-16.0) Hematocrit 44.5 % (34.0-47.0) Mean Corpuscular Volume 82.6 fL (80.0-96.0) Mean Corpuscular Hemoglobin 28.2 pg (26.0-33.0) Mean Corpuscular Hemoglobin Concent 34.1 g/dL (32.0-36.0) Red Cell Distribution Width 14.8 % (11.5-14.5) Platelet Count 279 K/uL (150-450) Mean Platelet Volume 9.8 fL (7.2-11.1) Neutrophils (%) (Auto) 90.7 % (39.4-72.5) Lymphocytes (%) (Auto) 6.6 % (17.6-49.6) Monocytes (%) (Auto) 2.4 % (4.1-12.4) Eosinophils (%) (Auto) 0.0 % (0.4-6.7) Basophils (%) (Auto) 0.3 % (0.3-1.4) Nucleated RBC Relative Count (auto) 0.0 /100WBC Neutrophils # (Auto) 11.2 K/uL (2.0-7.4) Lymphocytes # (Auto) 0.8 K/uL (1.3-3.6) Monocytes # (Auto) 0.3 K/uL (0.3-1.0) Eosinophils # (Auto) 0.0 K/uL (0.0-0.5) Basophils # (Auto) 0.0 K/uL (0.0-0.1) Nucleated RBC Absolute Count (auto) 0.00 K/uL Glomerular Filtration Rate Calc > 60.0 Calcium Level 9.8 mg/dl (8.4-10.2) Total Bilirubin 0.5 mg/dl (0.2-1.3) Aspartate Amino Transf (AST/SGOT) 23 U/L (0-35) Alanine Aminotransferase (ALT/SGPT) 32 U/L (0-56) Alkaline Phosphatase 102 U/L (0-126) Total Protein 7.3 g/dl (6.3-8.2) Albumin 4.3 g/dl (3.5-5.0) Lipase 42 U/L (23-300) Magnesium Level 1.5 mg/dl (1.7-2.2) EKG/Imaging EKG Interpretation 12 lead EKG: Rhythm: Normal sinus rhythm with sinus arrhythmia. ST segments: No acute ST changes. T-wave inversion in V1. There is a prolonged QT with a QTC of 481. ED Course/Re-evaluation ED Course Will obtain labs and images. Patient does appear to have some hypokalemia and hypomagnesemia. Patient given IV potassium and magnesium. She was given 5 mg IV Haldol IM. EKG was completed and did show some mild prolonged QT with QTC of 481. 11/28/2018 9:34:39 pm - discussed CT scan with patient and radiologist and it appears that she does have some early acute diverticulitis or colitis. Discussed with Dr. Carlos Gonzalez, hospitalist, who will admit patient to the hospital. He states that he will prescribe antibiotics for her. Decision to Disposition Date: Nov 28, 2018 Decision to Disposition Time: 21:35 Depart Departure Latest Vital Signs Vital Signs Date Time Temp Pulse Resp B/P (MAP) Pulse Ox O2 Delivery O2 Flow Rate FiO2 11/28/18 20:48 83 16 139/63 (88) 93 Nasal Cannula 2 11/28/18 18:35 98.3 Impression: Primary Impression: Acute diverticulitis Additional Impression: Intractable nausea and vomiting Condition: Improved Disposition: Admitted from ER MD Consult Note: Carlos Lomas, Hospitalist Problem Qualifiers Additional Impression: Intractable nausea and vomiting Vomiting type: unspecified Qualified Codes: R11.2 - Nausea with vomiting, unspecified JAQUI CARDOZA PA-C Nov 28, 2018 21:15
--- NOTE | 2018-11-28 22:08 | RADIOLOGY IMAGING REPORT ---
FACILITY: [facility] [place] PATIENT NAME: Pia Angel : 1965 MR: [id number] V: [id number] EXAM DATE: ORDERING PHYSICIAN: JAQUI CARDOZA TECHNOLOGIST: Location: [facility] Patient: Pia Angel : 1965 Visit/Account:[id number] Date of Sevice: 11/28/2018 CT of the abdomen and pelvis with contrast: Indication: Abdominal pain, nausea, and vomiting. Technique: Helical CT was performed through the abdomen and pelvis following IV contrast enhancement with 75 cc of Isovue-370. Multiplanar reconstructions are reviewed. One of the following dose optimization techniques was utilized in the performance of this exam: Autom ated exposure control; adjustment of the mA and/or kV according to the patient's size; or use of an i terative reconstruction technique. Specific details can be referenced in the facility's radiology CT exam operational policy. Comparison: 11/23/2018 Lower lung barnes: No parenchymal or pleural abnormality is identified. Liver: There is stable hepatomegaly, probably with mild fatty infiltration. No focal liver lesions ar e identified. The venous structures appear unremarkable. Gallbladder/biliary tree: The gallbladder is normal in size and homogeneous in density. The bile duct s are not dilated. Pancreas: Normal in size, shape, and density. There are no signs of peripancreatic inflammation or fl uid. Spleen: Normal in size, shape, and density. Adrenal glands: The previously described 3.3 cm left adrenal adenoma appears unchanged. The adrenal g lands are otherwise unremarkable. Kidneys/urinary bladder: A small simple cyst is again seen at the upper pole of the right kidney. The kidneys are otherwise normal in size, shape, and density. There are no signs of urinary tract calcul us or obstructive uropathy. The bladder appears homogeneous and unremarkable. Intestinal structures: A small hiatal hernia is less conspicuous at the present time. The upper GI tr act and small intestine appear unremarkable. The appendix is well visualized and appears normal. There are now signs of significant diverticulosis in the ascending colon and proximal transverse colo n, with likely mild acute diverticulitis. The distal transverse colon and proximal descending colon a ppear unchanged, and no diverticulosis is evident at those locations. The sigmoid colon and rectum ap pear unremarkable. There are no signs of intestinal obstruction. Pelvis: The uterus is absent. There are no signs of soft tissue mass or fluid in the pelvis. Aorta and vascular structures: Minimal atherosclerotic calcification in the aorta and iliac arteries appears stable. There are no signs of aneurysm or acute interval change. Ascites or fluid collections: None seen. Skeletal structures: There are stable degenerative changes in the lumbar spine and sacrum. No acute s keletal deformity is clearly identified. Impression: There are now signs of significant diverticulosis in the ascending colon and proximal tra nsverse colon, with likely mild acute diverticulitis. There are no signs of intestinal obstruction. A preliminary report was discussed with Jaret Cardoza at [facility] at 2123 hours. Report Dictated By: Blue Medellin MD at 11/28/2018 9:03 PM Report E-Signed By: Blue Medellin MD at 11/28/2018 10:04 PM WSN:[id number]
[2018-11-28] MEDS ORDERED: KCL 2 MEQ/ML 20 MEQ/10 ML VIAL 20 MEQ in NS(*) 0.9% 1000 ML BAG 1,000 ML IV PRN (22:28)
[2018-11-28] MEDS ORDERED: MAGNESIUM SUL* 2 GM/50 ML IVPB 50 ML IVPB ONE (22:30)
[2018-11-28] MEDS ORDERED: PROMETHAZINE 25 MG/ML 1 ML AMP IVP PRN (22:30)
[2018-11-28] MEDS ORDERED: HYDROMORPHON PCA10MG/50ML(CII) 10 MG/50 ML PLAST..BAG IV PRN (22:30)
[2018-11-28] MEDS ORDERED: INFLUENZA VIRUS VAC 0.5ML SYR IM ONLY ONE (22:30)
--- NOTE | 2018-11-28 22:59 | History & Physical ---
History of Present Illness Chief Complaint Abdominal pain, nausea, vomiting History of Present Illness 52yo female with PMHx significant for Grave's disease on methimazole, PUD. She reports a history of nausea/vomiting with an ultimate diagnosis of PUD a few years ago. She was treated with PPI and improved. She states she began having right upper quadrant/epigastric pain with associated N/V approximately 8-10 days ago. She additionally noted some feverish sensations. She was admitted to the hospital and treated symptomatically and showed some improvements. She states she was able to eat and drink fairly well, but the pain and N/V returned. She returned to the [facility] ([place] Her evaluation this time revealed an elevated WBC count and evidence of possible right-sided diverticulitis or colitis. She was recommended for admission. History Problems: (1) Lipoma of back Status: Chronic (2) Anemia Status: Acute (3) Lumbar strain Status: Acute (4) Fibroids, intramural Status: Resolved (5) Migraines Status: Chronic (6) Bone spur of left foot Status: Chronic (7) Bone spur of right foot Status: Chronic (8) Ovarian cyst Status: Chronic (9) Degenerative arthritis Status: Chronic (10) Adrenal adenoma Status: Chronic (11) GERD (gastroesophageal reflux disease) Status: Chronic (12) History of pneumonia Status: Resolved (13) Right wrist fracture Status: Resolved (14) Hx of meningitis Status: Resolved (15) Degenerative disc disease at L5-S1 level Status: Chronic (16) Avulsion fracture of medial malleolus Status: Acute (17) Calcaneal fracture Status: Acute (18) COPD (chronic obstructive pulmonary disease) Status: Chronic (19) Dyssomnia Status: Chronic (20) Hyperthyroidism Status: Chronic (21) Peptic ulcer disease Status: Chronic (22) S/P laparoscopic assisted vaginal hysterectomy (LAVH) Status: Acute (23) History of tubal ligation Status: Resolved (24) Tobacco use Status: Chronic Home Meds Active Scripts Pantoprazole Sodium (PANTOPRAZOLE SODIUM) 40 Mg Tablet.dr, 40 MG PO BID for 30 Days, #60 TAB.SR Prov:ELTON MADRID DO 11/23/18 Ondansetron 4 Mg Odt (ONDANSETRON 4 MG ODT) 4 Mg Tab.rapdis, 4 MG PO Q4-6H PRN for NAUSEA/VOMITING, #20 TAB Prov:MADRIDELTON EUBANKS DO 11/23/18 Methimazole (METHIMAZOLE) 10 Mg Tablet, 5 MG PO SuTuThSa@2100 for 30 Days, Prov:RUBI FLORES MD 12/24/17 Methimazole (METHIMAZOLE) 10 Mg Tablet, 10 MG PO MoWeFr@2100 for 30 Days, Prov:RUBI FLORES MD 12/24/17 Reported Medications Multivitamin (One-Daily Multi-Vitamin) 1 Each Tablet, 1 CAP QDAY 05/13/18 Gabapentin (GABAPENTIN) 300 Mg Capsule, 300 MG PO TID, CAPSULE 12/21/17 Trazodone Hcl (TRAZODONE HCL) 50 Mg Tablet, 150 MG PO QHS 12/21/17 Cholecalciferol (Vitamin D3) (VITAMIN D) 1,000 Unit Capsule, 1000 UNIT PO QDAY, CAPSULE 09/05/16 Melatonin (MELATONIN) 3 Mg Tablet.er, 3 MG PO QHS 09/05/16 Discontinued Reported Medications Pantoprazole Sodium (PANTOPRAZOLE SODIUM) 40 Mg Tablet.dr, 40 MG PO QDAY, TAB.SR 09/05/18 Discontinued Scripts Promethazine Hcl (PROMETHAZINE HCL) 25 Mg Tablet, 25 MG PO Q8H PRN for NAUSEA, #10 TAB Prov:ALEXANDRIA RODRIGUEZ DO 11/24/18 Promethazine Hcl (PROMETHAZINE HCL) 25 Mg Tablet, 25 MG PO Q8H PRN for NAUSEA/VOMITING, #12 TAB Prov:JAYDEN PETTIT ADVISORY SOFTWARE ENGINEER 11/23/18 Promethazine HCl (Phenergan) 25 Mg Supp.rect, 1 SUPP.RECT [place] Q8-12H PRN for NAUSEA/VOMITING, #20 SUPP.RECT Prov:MADRIDJACKI EUBANKSLAS Mariano DO 11/23/18 Allergies: Coded Allergies: No Known Drug Allergies (Unverified , 11/23/18) Patient History: Patient reports no known family medical history. Hx Smoking: Yes (1PPD X 35) Smoking Status: Current: Every Day Smoker Caffeine Intake: Coffee, Soda Caffeine/Cups Per Day: 2-3 cups per day Hx Alcohol Use: Yes (RARE) Hx Substance Use Disorder: No Social Drug Use: Never Review of Systems Constitutional: Fever, Chills Cardiovascular: No Chest Pain, No Palpitations Respiratory: No Shortness of Breath, No Cough Gastrointestinal: Nausea, Vomiting, Diarrhea, Hematochezia, Abdominal Pain Genitourinary: No Dysuria, No Hematuria Musculoskeletal: Pain Exam Vital Signs Vital Signs Date Time Temp Pulse Resp B/P (MAP) Pulse Ox O2 Delivery O2 Flow Rate FiO2 11/28/18 20:48 83 16 139/63 (88) 93 Nasal Cannula 2 11/28/18 18:35 98.3 General Appearance: Alert, Awake Neuro: No Gross deficits Eyes: PERRLA, Other (sclera anicteric) ENT: Oropharynx Clear Neck: No Masses Cardiovascular: Regular Rate and Rhythm, No JVD Respiratory: Clear to Auscultation Chest: No Tenderness GI: Other (obese/soft/tenderness in RUQ and epigastrium - no guarding or rebound/BS present) : No CVA Tenderness Extremities: Warm, Perfused Integumentary: Skin Intact without Lesion / Mass Psych: Alert & Oriented X3 Medical Decision Making Data Points Result Diagram: 11/28/18191011/28/181910 Item Value Date Time Lipase 42 U/L 11/28/181910 Albumin 4.3 g/dl 11/28/181910 Total Protein 7.3 g/dl 11/28/181910 Alkaline Phosphatase 102 U/L 11/28/181910 Alanine Aminotransferase (ALT/SGPT) 32 U/L 11/28/181910 Aspartate Amino Transf (AST/SGOT) 23 U/L 11/28/181910 Total Bilirubin 0.5 mg/dl 11/28/181910 Magnesium Level 1.5 mg/dl L 11/28/181915 Calcium Level 9.8 mg/dl 11/28/181910 Urine Mucus Few /HPF 11/28/18 1013 Urine Bacteria Negative /HPF 11/28/18 1013 Urine Squamous Epithelial Cells None /LPF 11/28/18 1013 Urine WBC <1 /HPF 11/28/18 1013 Urine RBC <1 /HPF 11/28/18 1013 Urine Leukocyte Esterase Negative 11/28/18 1013 Urine Urobilinogen Negative mg/dL 11/28/18 1013 Urine Bilirubin Negative 11/28/18 1013 Urine Nitrite Negative 11/28/18 1013 Urine Blood Negative 11/28/18 1013 Urine Ketones Negative mg/dL 11/28/18 1013 Urine Glucose (UA) Negative mg/dL 11/28/18 1013 Urine Protein Negative mg/dL 11/28/18 1013 Urine Specific Jennings 1.017 11/28/18 1013 Urine pH 8.0 pH 11/28/18 1013 Urine Clarity Clear 11/28/18 1013 Urine Color Yellow 11/28/18 1013 Helicobacter pylori IgG Antibody Negative 11/28/18 1108 Stool Occult Blood (IFOB) Positive H 11/28/18 1050 Assessment and Plan Problems: (1) Abdominal pain Status: Acute Assessment & Plan: It appears she may have an acute diverticulitis (or possibly a colitis). She has an elevated WBC count. Will start IV Zosyn 3.375gm IV q6hrs. Will give IV anti-emetic and analgesics as needed. Watch closely. If any problems, will need surgery to see as well. (2) Intractable nausea and vomiting Status: Acute Assessment & Plan: Most likely due to the acute diverticulitis/colitis. Will try to get this under control with anti-emetic and pain control. It is possible the methimazole could contribute to her nausea as well. Will hold this for now. (3) Hyperthyroidism Status: Chronic Assessment & Plan: History of Grave's Disease. 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 Question if this could be contributing to her nausea. Will hold it for now. Will check TSH. (4) Hypokalemia Status: Acute Assessment & Plan: Due to vomiting. Will replace with IV supplements. Watch labs. (5) Hypomagnesemia Status: Acute Assessment & Plan: Due to vomiting/decreased intake. Will give IV supplementation. Watch labs. Venous Thromboembolism Antithrombotics Is Pt On Any Antithrombotics?: Yes Exam Sepsis Risk: No Definite Risk Problem Qualifiers (1) Intractable nausea and vomiting: Vomiting type: unspecified Qualified Codes: R11.2 - Nausea with vomiting, unspecified EVELINA MALONE MD Nov 28, 2018 22:59
[2018-11-28 23:01] VITALS: BP 134/72
[2018-11-28] MEDS ORDERED: SALINE 0.65% NAS SPR 44 ML BTL PRN (23:15)
[2018-11-28] MEDS ORDERED: PCA LOCKBOX KEYS XX ONE (23:23)
[2018-11-29 01:40] VITALS: BP 133/69
[2018-11-29 05:35] LABS: PLATELET COUNT, AUTOMATED 210 K/uL (150-450)
[2018-11-29] MEDS ORDERED: KCL/NS* 20 MEQ/1000 ML PREMIX 1,000 ML IV ONE (05:56)
[2018-11-29] MEDS: PIPERACILLIN/TAZO*3.375GM VIAL 3.375 GM in NS(*) 0.9% 100 ML MINI-BAG 100 ML IVPB SCH (06:00)
[2018-11-29 07:25] VITALS: BP 132/61
[2018-11-29] MEDS ORDERED: CIPROFLOXACIN 500 MG TAB PO ONE (10:00)
[2018-11-29] MEDS: METRONIDAZOLE 500 MG TABLET PO SCH ×3 (11:05→21:29)
[2018-11-29] MEDS: PANTOPRAZOLE SOD 40 MG TABEC PO SCH ×2 (11:06→21:29)
[2018-11-29] MEDS: traMADol 50 MG TAB PO PRN ×2 (11:06→23:20)
[2018-11-29] MEDS: GABAPENTIN 300 MG CAP PO SCH ×3 (11:06→21:29)
[2018-11-29] MEDS: KCL (*) 20 MEQ/100 ML PREMIX 100 ML IV SCH ×2 (11:07→13:59)
[2018-11-29] MEDS: ENOXAPARIN 40 MG/0.4ML SYR SC SCH (11:07)
[2018-11-29] MEDS: ACETAMINOPHEN 500 MG TAB PO PRN ×2 (12:05→23:20)
[2018-11-29 16:36] VITALS: BP 150/84
--- NOTE | 2018-11-29 16:36 | Hospitalist Progress Note ---
Subjective Progress Notes Subjective JULIAN overnight, frequently goes out to smoke. Tolerating PO this am. Patient Complains of: Gastrointestinal: No Nausea, No Vomiting Physical Exam Vital Signs Date Time Temp Pulse Resp B/P (MAP) Pulse Ox O2 Delivery O2 Flow Rate FiO2 11/29/18 07:25 98.6 89 14 132/61 (84) 92 Room Air 11/28/18 20:48 2 Intake and Output 11/29/18 07:01 Intake Total 700 ml Balance 700 ml Intake Oral 100 ml IV Total 600 ml # Voids 3 # Bowel Movements 1 General Appearance: Awake, No Acute Distress, Afebrile Neuro: No Gross deficits Cardiovascular: Normal Rhythm & Peripheral Pulses Respiratory: No Respiratory Distress GI: Other (mild tenderness in epigastric) Extremities: Soft and Non Tender, Warm, Pulses, Perfused Result Diagram: 11/29/1852011/29/18520 Assessment and Plan Problems: (1) Abdominal pain Status: Acute Assessment & Plan: Acute R sided diverticulitis without complication. Transitioned from Zosyn to PO ciprofloxacin and metronidazole, advanced diet per patient request. (2) Intractable nausea and vomiting Status: Acute Assessment & Plan: Improved, Most likely due to the acute diverticulit is/colitis.. It is possible the methimazole could contribute to her nausea as well. (3) Hyperthyroidism Status: Chronic Assessment & Plan: History of Grave's Disease. 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 Question if this could be contributing to her nausea. Will check TSH. (4) Hypokalemia Status: Acute Assessment & Plan: Due to vomiting. Improved, Watch labs. (5) Hypomagnesemia Status: Acute Assessment & Plan: Due to vomiting/decreased intake. IV supplementation. Watch labs. Improved. Exam Sepsis Risk: Sepsis Risk Problem Qualifiers (1) Intractable nausea and vomiting: Vomiting type: unspecified Qualified Codes: R11.2 - Nausea with vomiting, unspecified BALWINDER BERUMEN DO Nov 29, 2018 16:36
[2018-11-29] MEDS: CIPROFLOXACIN 500 MG TAB PO SCH (16:42)
[2018-11-29 19:39] VITALS: BP 153/87
[2018-11-29] MEDS ORDERED: MELATONIN 3 MG TAB PO SCH (21:00)
[2018-11-29] MEDS ORDERED: METHIMAZOLE 10 MG TAB PO SCH (21:00)
[2018-11-29] MEDS ORDERED: traZODone HCL 50 MG TAB PO SCH (21:00)
[2018-11-29] MEDS ORDERED: KCL/NS* 20 MEQ/1000 ML PREMIX 1,000 ML IV PRN (22:28)
[2018-11-29 23:30] VITALS: BP 143/88
[2018-11-30] MEDS ORDERED: APAP/HYDROCODONE 325/5 TAB PO ONE (01:15)
[2018-11-30] MEDS ORDERED: APAP/HYDROCODONE 325/5 TAB ONE (01:18)
[2018-11-30 06:04] VITALS: BP 145/99
[2018-11-30 06:18] LABS: PLATELET COUNT, AUTOMATED 216 K/uL (150-450)
[2018-11-30] MEDS: CIPROFLOXACIN 500 MG TAB PO SCH (06:32)
[2018-11-30] MEDS: ENOXAPARIN 40 MG/0.4ML SYR SC SCH (08:45)
[2018-11-30] MEDS: METRONIDAZOLE 500 MG TABLET PO SCH ×2 (08:46→13:45)
[2018-11-30] MEDS: traMADol 50 MG TAB PO PRN (08:46)
[2018-11-30] MEDS: GABAPENTIN 300 MG CAP PO SCH ×2 (08:46→13:45)
[2018-11-30] MEDS: PANTOPRAZOLE SOD 40 MG TABEC PO SCH (08:46)
[2018-11-30 10:28] VITALS: BP 136/84
--- NOTE | 2018-11-30 11:17 | Medical Nutrition Therapy ---
Nutrition Anthropometrics Weight (Pounds): 205 Weight (Calculated Kilograms): 92.986 Garry Nutrition Score: Adequate Garry Nutrition Risk Score: 20 Dietary Referral Nutrition Risk Factors: Nutrition Risk Comment: Physical Findings Physical Appearance: Skin Appearance Skin Appearance: Edema Edema Location Modifier: Edema Location: Type of Edema: Degree of Edema: Gastrointestinal Symptoms GI Symtoms: Diarrhea Tube Present: Bowel Sounds: Recent Bowel Pattern: Stool Characteristics: Nutritional Diagnosis Nutritional Risk Acuity 2: V/D > 3 Days, GI Malabsorption Nutritional Risk Acuity 3: Nausea, GERD Nutritional Risk Acuity 4: Modified Diet Past Medical History: GERD, hiatal hernia, COPD, migraines, hyperthyroid-Grave's, lipoma, anemia, lumbar strain, fibroids, bone spurs, ovarian cyst, degenerative arthritis, adrenal adenoma, pneumonia, wrist fracture, meningitis, degenerative disc disease, fracture of medial malleolus, calcaneal fracture, dyssomnia PUD, hysterectomy, tubal ligation, tobacco use Nutritional Acuity: 2-Moderate Nutrition Diagnosis: Inadequate Food Intake Nutrition Etiology: Malabsorption/Intolerance Nutrition Problem/Etiology/Sym: Inadequate food intake as related to malabsorption/intolerance as evidenced by N/V for 3 or more days. Energy Requirement: 2325 (25kcal/kg) Protein Requirement: 74 (0.8 g protein/kg) Fluid Requirement: 2325 (25mL/kg) Diet Type: Diet as Tolerated LIGIA/REG Nutrition Intervention: Cont diet as ordered, Incr diet as tolerated Nutrition Monitoring & Eval Nutrition Goals: Eat 50-100% Meal Nutrition Follow-Up: Fair Intake Nutrition Monitoring: Pt consuming 50-75% of meals. RD Patient Assessment Time: [address] Assessment Type: RD Assessment Patient Nutrition Acuity: 2-Moderate Follow Up Date: Dec 03, 2018 Nutritional Comment: Pt admitted for abdominal pain, intractable nausea and vomiting. MD note states that this is possibly due to diverticulitis or colitis. Pt has an extensive medical hx. Currently on CL diet with 360mL intake at most recent meal. Pt is taking enoxaparin. WBC of 12.2 are elevated. K of 2.9 is decreased, pt is recieving IV KCl. BUN of 5 and creatinine of 0.50 are decreased. Total protein of 5.8 and albumin of 3.2 are decreased. Monitor for progession of diet as condition improves. -AKG 6/16 Pt dx with diverticulitis. Pt advanced to LIGIA with 50-75% intake at meals. Pt taking enoxaparin. BUN of 4 and creatinine of 0.50 are decreased. Random glucose of 114 is elevated. K has improved to WNL at 3.9. Monitor for improvement in intake.-UMAIR KOVACS Nov 30, 2018 11:17
[2018-11-30] MEDS ORDERED: CIPR-214 PO (12:50)
[2018-11-30] MEDS ORDERED: METR500T15 PO (12:50)
--- NOTE | 2018-11-30 12:51 | Hospitalist Depart ---
Discharge Summary Reason for Hosp/Final Diag: (1) Abdominal pain Status: Acute Hospital Course & Plan: The patient was admitted with acute right-sided diverticulitis without complication. She was initially treated with IV Zosyn and then switched to PO ciprofloxacin and metronidazole. She tolerated these medications well. Her diet was advanced per patient request and she tolerated this as well. She was discharged with instructions to follow up with Dr. Quinonez at the [facility] next week. (2) Intractable nausea and vomiting Status: Acute Hospital Course & Plan: The patient initially had nausea and vomiting. This improved with treatment of her acute diverticulitis. (3) Hyperthyroidism Status: Chronic Hospital Course & Plan: History of Grave's Disease. 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 She is going to follow up with her primary care provider for ongoing management. (4) Hypokalemia Status: Acute Hospital Course & Plan: Likely due to vomiting. This resolved with supplementation. (5) Hypomagnesemia Status: Acute Hospital Course & Plan: Likely due to vomiting and decreased oral intake. This resolved with supplementation. Departure Weight (Pounds): 205 Result Diagram: 11/30/18 0553 11/29/18 1730 Item Value Date Time Magnesium Level 2.2 mg/dl 11/29/18 05 Total Bilirubin 0.5 mg/dl 11/29/18520 Aspartate Amino Transf (AST/SGOT) 17 U/L 11/29/18 05 Alanine Aminotransferase (ALT/SGPT) 36 U/L 11/29/18 05 Alkaline Phosphatase 76 U/L 11/29/18 05 Total Protein 5.8 g/dl L 11/29/18 0521 Albumin 3.2 g/dl L 11/29/18 05 Condition: Improved Discharge: Home, Self Care Time Spent: < 30 min Discharge Instructions Home Meds Active Scripts Metronidazole (METRONIDAZOLE) 500 Mg Tablet, 500 MG PO TID, #27 TAB Prov:POLO MALONE MD 11/30/18 Ciprofloxacin 500 Mg Tab (CIPROFLOXACIN 500 MG TAB) 500 Mg Tablet, 500 MG PO BIDAC, #18 TAB Prov:POLO MALONE MD 11/30/18 Pantoprazole Sodium (PANTOPRAZOLE SODIUM) 40 Mg Tablet., 40 MG PO BID for 30 Days, #60 TAB.SR Prov:ELTON MADRID DO 11/23/18 Methimazole (METHIMAZOLE) 10 Mg Tablet, 5 MG PO SuTuThSa@2100 for 30 Days, Prov:RUBI FLORES MD 12/24/17 Methimazole (METHIMAZOLE) 10 Mg Tablet, 10 MG PO MoWeFr@2100 for 30 Days, Prov:RUBI FLORES MD 12/24/17 Reported Medications Multivitamin (One-Daily Multi-Vitamin) 1 Each Tablet, 1 CAP QDAY 05/13/18 Gabapentin (GABAPENTIN) 300 Mg Capsule, 300 MG PO TID, CAPSULE 12/21/17 Trazodone Hcl (TRAZODONE HCL) 50 Mg Tablet, 150 MG PO QHS 12/21/17 Cholecalciferol (Vitamin D3) (VITAMIN D) 1,000 Unit Capsule, 1000 UNIT PO QDAY, CAPSULE 09/05/16 Melatonin (MELATONIN) 3 Mg Tablet.er, 3 MG PO QHS 09/05/16 Discontinued Reported Medications Pantoprazole Sodium (PANTOPRAZOLE SODIUM) 40 Mg Tablet.dr, 40 MG PO QDAY, TAB.SR 09/05/18 Discontinued Scripts Ondansetron 4 Mg Odt (ONDANSETRON 4 MG ODT) 4 Mg Tab.rapdis, 4 MG PO Q4-6H PRN for NAUSEA/VOMITING, #20 TAB Prov:ELTON MADRID Mariano DO 11/23/18 Promethazine Hcl (PROMETHAZINE HCL) 25 Mg Tablet, 25 MG PO Q8H PRN for NAUSEA, #10 TAB Prov:ALEXANDRIA RODRIGUEZ DO 11/24/18 Promethazine Hcl (PROMETHAZINE HCL) 25 Mg Tablet, 25 MG PO Q8H PRN for NAUSEA/VO MITING, #12 TAB Prov:JAYDEN PETTIT PLUSH DRESSER 11/23/18 Promethazine HCl (Phenergan) 25 Mg Supp.rect, 1 SUPP.RECT TN Q8-12H PRN for NAUSEA/VOMITING, #20 SUPP.RECT Prov:ELTON MADRID Mariano DO 11/23/18 Diet: Regular Activity: As Tolerated Special Instructions: Follow up with Dr. Quinonez at the [facility] next week. Copies to: ; [facility] Venous Thromboembolism Antithrombotics Is Pt On Any Antithrombotics?: Yes Problem Qualifiers (1) Intractable nausea and vomiting: Vomiting type: unspecified Qualified Codes: R11.2 - Nausea with vomiting, unspecified POLO MALONE MD Nov 30, 2018 12:51
--- NOTE | 2018-11-30 13:41 | Antimicrobial Stewardship ---
Antimicrobial Time Out Antimicrobial Stewardship MD Service: Hospitalist Indications: Other (DIVERTICULITIS) Antimicrobial Used CIPROFLOXACIN AND FLAGYL Start Date: Nov 28, 2018 Culture Results: No Eligible for PO Conversion Eligable for PO Conversion: Yes Reviewed with Provider Reviewed w/ Provider on Rounds: JUAN CARLOS Marie Nov 30, 2018 13:41
[2018-11-30 13:43] VITALS: BP 151/89
[2018-12-01] MEDS ORDERED: METHIMAZOLE 10 MG TAB PO SCH (21:00)
== END 2018-11-30 13:57 | disposition home or self-care (01) | DRG 392 ==
LOC: ER 18:41 → MED 21:46
PROVIDERS: ADMIT Internal Medicine; ATTEND Internal Medicine
DX: K57.32 Diverticulitis of large intestine without perforation or abscess without bleeding (principal); F17.210 Nicotine dependence, cigarettes, uncomplicated; E87.6 Hypokalemia; E83.42 Hypomagnesemia; E05.00 Thyrotoxicosis with diffuse goiter without thyrotoxic crisis or storm; K27.7 Chronic peptic ulcer, site unspecified, without hemorrhage or perforation; G43.909 Migraine, unspecified, not intractable, without status migrainosus; N83.209 Unspecified ovarian cyst, unspecified side; D35.00 Benign neoplasm of unspecified adrenal gland; K21.9 Gastro-esophageal reflux disease without esophagitis; J44.9 Chronic obstructive pulmonary disease, unspecified; G47.9 Sleep disorder, unspecified; Z90.710 Acquired absence of both cervix and uterus
CPT/HCPCS: 36415; 74177; 82040; 82247; 82310; 82374; 82435; 82565; 82947; 83690; 83735; 84075; 84132; 84155; 84295; 84450; 84460; 84520; 85025; 87045; 87177; 93005; 96361; 96365; 96372; 99284; J1170; J1630; J1650; J2543; J3475; J3480; J7030; Q9967

== ENCOUNTER 2018-12-02 07:18 | Emergency (ER) | payer SELFPAY ==
[2017-12-22 10:53] VITALS: Wt 93.0 kg
[~2018-12-02 07:18] MED LIST changes: +CIPR-214 PO; +METR500T15 PO
--- NOTE | 2018-12-02 07:22 | ER Report ---
History and Physical Time Seen By MD: 07:20 HPI/ROS CHIEF COMPLAINT: Periumbilical abdominal pain HISTORY OF PRESENT ILLNESS: Patient is a 52-year-old female here with complaints of periumbilical abdominal pain with radiation to the back similar to prior presentation the patient was diagnosed with diverticulitis. Patient is on Cipro and Flagyl and had been admitted for 2 days, discharged on the . Patient reports acute onset approximate 5:30 this morning with associated nausea and vomiting. Patient did attempt to take Zofran without relief. Patient did have a loose bowel movement this morning but denies blood. Patient is afebrile at time of evaluation and is hemodynamically stable. REVIEW OF SYSTEMS: Constitutional: No fever, no chills. Eyes: No discharge. ENT: No sore throat. Cardiovascular: No chest pain, no palpitations. Respiratory: No cough, no shortness of breath. Gastrointestinal: + Periumbilical abdominal pain, + nausea and vomiting. Genitourinary: No hematuria. Musculoskeletal: No back pain. Skin: No rashes. Neurological: No headache. Allergies: Coded Allergies: No Known Drug Allergies (Unverified , 11/23/18) Home Meds Active Scripts Ondansetron 4 Mg Odt (ONDANSETRON 4 MG ODT) 4 Mg Tab.rapdis, 4 MG PO ONCE, #20 TAB Prov:ELTON MADRID DO 12/02/18 Promethazine Hcl (PROMETHAZINE HCL) 25 Mg Supp.rect, 25 MG RC Q8H, #12 SUPP.RECT Prov:ELTON MADRID DO 12/02/18 Metronidazole (METRONIDAZOLE) 500 Mg Tablet, 500 MG PO TID, #27 TAB Prov:POLO MALONE MD 11/30/18 Ciprofloxacin 500 Mg Tab (CIPROFLOXACIN 500 MG TAB) 500 Mg Tablet, 500 MG PO BIDAC, #18 TAB Prov:POLO MALONE MD 11/30/18 Pantoprazole Sodium (PANTOPRAZOLE SODIUM) 40 Mg Tablet.dr, 40 MG PO BID for 30 Days, #60 TAB.SR Prov:ELTON MADRID DO 11/23/18 Methimazole (METHIMAZOLE) 10 Mg Tablet, 5 MG PO SuTuThSa@2100 for 30 Days, Prov:RUBI FLORES MD 12/24/17 Methimazole (METHIMAZOLE) 10 Mg Tablet, 10 MG PO MoWeFr@2100 for 30 Days, Prov:RUBI FLORES MD 12/24/17 Reported Medications Multivitamin (One-Daily Multi-Vitamin) 1 Each Tablet, 1 CAP QDAY 05/13/18 Gabapentin (GABAPENTIN) 300 Mg Capsule, 300 MG PO TID, CAPSULE 12/21/17 Trazodone Hcl (TRAZODONE HCL) 50 Mg Tablet, 150 MG PO QHS 12/21/17 Cholecalciferol (Vitamin D3) (VITAMIN D) 1,000 Unit Capsule, 1000 UNIT PO QDAY, CAPSULE 09/05/16 Melatonin (MELATONIN) 3 Mg Tablet.er, 3 MG PO QHS 09/05/16 Discontinued Scripts Ondansetron 4 Mg Odt (ONDANSETRON 4 MG ODT) 4 Mg Tab.rapdis, 4 MG PO Q4-6H PRN for NAUSEA/VOMITING, #20 TAB Prov:ELTON MADRID DO 11/23/18 Promethazine Hcl (PROMETHAZINE HCL) 25 Mg Tablet, 25 MG PO Q8H PRN for NAUSEA, #10 TAB Prov:ALEXANDRIA RODRIGUEZ DO 11/24/18 Hx Smoking: Yes (1PPD X 35) Smoking Status: Current: Every Day Smoker Hx Substance Use Disorder: No Hx Alcohol Use: Yes (RARE) Constitutional Vital Sign - Last 24 Hours 12/02/18 12/02/18 12/02/18 12/02/18 07:21 07:22 07:23 07:28 Temp 98.2 Pulse 93 85 80 B/P (MAP) 137/111 (120) 137/111 Pulse Ox 97 95 95 O2 Delivery Room Air 12/02/18 12/02/18 12/02/18 12/02/18 07:33 07:38 07:43 07:48 Pulse 84 84 78 75 Resp 12 16 12 12/02/18 12/02/18 12/02/18 12/02/18 07:53 07:55 07:58 08:03 Pulse 80 96 68 Resp 0 18 12 B/P (MAP) 155/76 (102) Pulse Ox 91 95 95 12/02/18 12/02/18 12/02/18 12/02/18 08:08 08:13 08:18 08:23 Pulse 78 80 74 107 Resp 11 12 12 19 B/P (MAP) 153/83 (106) Pulse Ox 95 6/18/19 6/18/19 6/18/19 6/18/19 08:28 08:30 08:33 08:38 Pulse 83 87 88 Resp 9 0 16 B/P (MAP) 157/85 (109) Pulse Ox 92 92 94 /18/19 6/18/19 6/18/19 6/18/19 08:43 09:03 09:08 09:13 Pulse ? 79 Resp 27 9 Pulse Ox 94 6/18/19 6/18/19 6/18/19 6/18/19 09:18 09:23 09:28 09:33 Pulse 88 78 93 81 Resp 30 13 24 9 Pulse Ox 91 /18/19 6/18/19 6/18/19 6/ 09:38 09:48 09:53 09:58 Pulse 72 82 97 96 Resp 20 14 12 12 /18/19 6/18/19 6/18/19 12/02/ 10:03 10:08 10:13 10:18 Pulse 97 90 84 79 Resp 16 11 38 17 /18/19 6/18/19 6/18/19 12/02/19 10:23 10:28 10:33 10:38 Pulse 78 99 89 102 Resp 20 8 38 28 /18/19 6/18/19 6/18/19 12/02/ 10:43 10:58 11:03 11:08 Pulse 85 73 89 ??? Resp 31 78 22 /18/19 6/18/19 6/18/19 12/02/ 11:13 11:18 11:23 11:28 Pulse 91 ??? 67 90 Resp 22 39 /18/19 6/18/19 6/18/19 12/02/ 11:33 11:38 11:43 11:48 Pulse 87 86 86 79 6/18/19 6/18/19 6/18/19 18/ 11:53 11:58 12:03 12:08 Pulse ? 18/ 6/18/19 6/18/19 12/02/ 12:13 12:18 12:23 12:28 Pulse ? 12/02/18 12/02/18 12:33 12:38 Pulse ? Physical Exam General Appearance: The patient is alert, has no immediate need for airway protection and no signs of toxicity. Uncomfortable appearing Eyes: Pupils equal and round no pallor or injection. ENT, Mouth: Mucous membranes are moist. Respiratory: There are no retractions, lungs are clear to auscultation. Cardiovascular: Regular rate and rhythm. Gastrointestinal: Tenderness on palpation of the periumbilical distribution, no rebound or guarding or peritoneal signs Neurological: No focal neurological deficits Skin: Warm and dry, no rashes. Musculoskeletal: Neck is supple non tender. Extremities are nontender, nonswollen and have full range of motion. DIFFERENTIAL DIAGNOSIS: After history and physical exam differential diagnosis was considered for abdominal pain including but not limited to appendicitis, cholecystitis, gastritis and urinary tract infection, diverticulitis, abscess Medical Decision Making Data Points Result Diagram: 12/02/18 0808 12/02/18 0808 Laboratory Hematology Test 12/02/18 08:08 12/02/18 09:13 12/02/18 11:43 Red Blood Count 5.29 M/uL (4.17-5.56) Mean Corpuscular Volume 84.1 fL (80.0-96.0) Mean Corpuscular Hemoglobin 28.1 pg (26.0-33.0) Mean Corpuscular Hemoglobin Concent 33.4 g/dL (32.0-36.0) Red Cell Distribution Width 15.3 % (11.5-14.5) Mean Platelet Volume 9.0 fL (7.2-11.1) Neutrophils (%) (Auto) 83.5 % (39.4-72.5) Lymphocytes (%) (Auto) 9.8 % (17.6-49.6) Monocytes (%) (Auto) 4.7 % (4.1-12.4) Eosinophils (%) (Auto) 1.4 % (0.4-6.7) Basophils (%) (Auto) 0.6 % (0.3-1.4) Nucleated RBC Relative Count (auto) 0.0 /100WBC Neutrophils # (Auto) 10.2 K/uL (2.0-7.4) Lymphocytes # (Auto) 1.2 K/uL (1.3-3.6) Monocytes # (Auto) 0.6 K/uL (0.3-1.0) Eosinophils # (Auto) 0.2 K/uL (0.0-0.5) Basophils # (Auto) 0.1 K/uL (0.0-0.1) Nucleated RBC Absolute Count (auto) 0.00 K/uL Prothrombin Time 12.9 seconds (12.0-14.4) Prothromb Time International Ratio 0.97 Activated Partial Thromboplast Time 28 seconds (23-35) Sodium Level 141 mmol/L (137-145) Potassium Level 4.0 mmol/L (3.5-5.0) Chloride Level 106 mmol/L (98-107) Carbon Dioxide Level 21 mmol/L (22-31) Blood Urea Nitrogen 14 mg/dl (7-18) Creatinine 0.70 mg/dl (0.52-1.04) Glomerular Filtration Rate Calc > 60.0 Random Glucose 108 mg/dl (75-110) Calcium Level 9.4 mg/dl (8.4-10.2) Magnesium Level 1.9 mg/dl (1.7-2.2) Total Bilirubin 0.3 mg/dl (0.2-1.3) Aspartate Amino Transf (AST/SGOT) 18 U/L (0-35) Alanine Aminotransferase (ALT/SGPT) 40 U/L (0-56) Alkaline Phosphatase 89 U/L (0-126) Total Protein 6.7 g/dl (6.3-8.2) Albumin 4.0 g/dl (3.5-5.0) Lipase 75 U/L (23-300) Urine Color Yellow Urine Clarity Cloudy Urine pH 7.0 pH (4.8-9.5) Urine Specific [place] 1.030 Urine Protein Negative mg/dL (NEGATIVE) Urine Glucose (UA) Negative mg/dL (NEGATIVE) Urine Ketones Negative mg/dL (NEGATIVE) Urine Blood Negative (NEGATIVE) Urine Nitrite Negative (NEGATIVE) Urine Bilirubin Negative (NEGATIVE) Urine Urobilinogen Negative mg/dL (0.2-1.9) Urine Leukocyte Esterase Negative (NEGATIVE) Urine RBC 1 /HPF (0-2/HPF) Urine WBC <1 /HPF (0-5/HPF) Urine Squamous Epithelial Cells Many /LPF (</=FEW) Urine Amorphous Crystals Few /HPF Urine Bacteria Negative /HPF (NONE-FEW) Urine Mucus Few /HPF (NONE-FEW) Lactate 1.7 mmol/L (0.7-2.1) Chemistry Test 12/02/18 08:08 12/02/18 09:13 12/02/18 11:43 White Blood Count 12.3 k/uL (4.5-11.0) Red Blood Count 5.29 M/uL (4.17-5.56) Hemoglobin 14.9 g/dL (12.0-16.0) Hematocrit 44.5 % (34.0-47.0) Mean Corpuscular Volume 84.1 fL (80.0-96.0) Mean Corpuscular Hemoglobin 28.1 pg (26.0-33.0) Mean Corpuscular Hemoglobin Concent 33.4 g/dL (32.0-36.0) Red Cell Distribution Width 15.3 % (11.5-14.5) Platelet Count 233 K/uL (150-450) Mean Platelet Volume 9.0 fL (7.2-11.1) Neutrophils (%) (Auto) 83.5 % (39.4-72.5) Lymphocytes (%) (Auto) 9.8 % (17.6-49.6) Monocytes (%) (Auto) 4.7 % (4.1-12.4) Eosinophils (%) (Auto) 1.4 % (0.4-6.7) Basophils (%) (Auto) 0.6 % (0.3-1.4) Nucleated RBC Relative Count (auto) 0.0 /100WBC Neutrophils # (Auto) 10.2 K/uL (2.0-7.4) Lymphocytes # (Auto) 1.2 K/uL (1.3-3.6) Monocytes # (Auto) 0.6 K/uL (0.3-1.0) Eosinophils # (Auto) 0.2 K/uL (0.0-0.5) Basophils # (Auto) 0.1 K/uL (0.0-0.1) Nucleated RBC Absolute Count (auto) 0.00 K/uL Prothrombin Time 12.9 seconds (12.0-14.4) Prothromb Time International Ratio 0.97 Activated Partial Thromboplast Time 28 seconds (23-35) Glomerular Filtration Rate Calc > 60.0 Calcium Level 9.4 mg/dl (8.4-10.2) Magnesium Level 1.9 mg/dl (1.7-2.2) Total Bilirubin 0.3 mg/dl (0.2-1.3) Aspartate Amino Transf (AST/SGOT) 18 U/L (0-35) Alanine Aminotransferase (ALT/SGPT) 40 U/L (0-56) Alkaline Phosphatase 89 U/L (0-126) Total Protein 6.7 g/dl (6.3-8.2) Albumin 4.0 g/dl (3.5-5.0) Lipase 75 U/L (23-300) Urine Color Yellow Urine Clarity Cloudy Urine pH 7.0 pH (4.8-9.5) Urine Specific [place] 1.030 Urine Protein Negative mg/dL (NEGATIVE) Urine Glucose (UA) Negative mg/dL (NEGATIVE) Urine Ketones Negative mg/dL (NEGATIVE) Urine Blood Negative (NEGATIVE) Urine Nitrite Negative (NEGATIVE) Urine Bilirubin Negative (NEGATIVE) Urine Urobilinogen Negative mg/dL (0.2-1.9) Urine Leukocyte Esterase Negative (NEGATIVE) Urine RBC 1 /HPF (0-2/HPF) Urine WBC <1 /HPF (0-5/HPF) Urine Squamous Epithelial Cells Many /LPF (</=FEW) Urine Amorphous Crystals Few /HPF Urine Bacteria Negative /HPF (NONE-FEW) Urine Mucus Few /HPF (NONE-FEW) Lactate 1.7 mmol/L (0.7-2.1) Coagulation Test 12/02/18 08:08 Prothrombin Time 12.9 seconds Prothromb Time International Ratio 0.97 Activated Partial Thromboplast Time 28 seconds Urinalysis Test 12/02/18 09:13 Urine Color Yellow Urine Clarity Cloudy Urine pH 7.0 pH (4.8-9.5) Urine Specific [place] 1.030 Urine Protein Negative mg/dL (NEGATIVE) Urine Glucose (UA) Negative mg/dL (NEGATIVE) Urine Ketones Negative mg/dL (NEGATIVE) Urine Blood Negative (NEGATIVE) Urine Nitrite Negative (NEGATIVE) Urine Bilirubin Negative (NEGATIVE) Urine Urobilinogen Negative mg/dL (0.2-1.9) Urine Leukocyte Esterase Negative (NEGATIVE) Urine RBC 1 /HPF (0-2/HPF) Urine WBC <1 /HPF (0-5/HPF) Urine Squamous Epithelial Cells Many /LPF (</=FEW) Urine Amorphous Crystals Few /HPF Urine Bacteria Negative /HPF (NONE-FEW) Urine Mucus Few /HPF (NONE-FEW) EKG/Imaging Imaging PATIENT NAME: Pia Angel : 1965 MR: [id number] V: [id number] EXAM DATE: [id number] ORDERING PHYSICIAN: ELTON MADRID TECHNOLOGIST: Location: [facility] Patient: Pia Angel : 1965 Visit/Account:[id number] Date of Sevice: 12/02/2018 Study: Single portable view of the chest. Indication: Common, nausea, vomiting Comparison study: April 09, 2016 Technique: Single AP view of the chest demonstrates no evidence of acute infiltrate. There is no evidence of pleural effusion or pneumothorax. The mediastinal, cardiac, and diaphragmatic contours are unremarkable. IMPRESSION: Unremarkable chest. PATIENT NAME: Pia Angel : 1965 MR: [id number] V: [id number] EXAM DATE: [id number] ORDERING PHYSICIAN: ELTON MADRID TECHNOLOGIST: Location: [facility] Patient: Pia Angel : 1965 Visit/Account:[id number] Date of Sevice: 12/02/2018 CT ABDOMEN PELVIS W/ CON HISTORY: Abdominal pain, nausea and vomiting. TECHNIQUE: CT abdomen and pelvis with intravenous contrast. One of the following dose optimization techniques was utilized in the performance of this exam: Automated exposure control; adjustment of the mA and/or kV according to the patient's size; or use of an iterative reconstruction technique. Specific details can be referenced in the facility's radiology CT exam operational policy. CONTRAST: 75 mL Isovue-370 IV COMPARISON: 11/28/2018, 06/29/2016 FINDINGS: Visualized lung bases: Negative. Hepatobiliary: Negative. Spleen: Negative. Adrenals: Right unremarkable. 3.1 cm low but not fatty attenuating lesion left, not significantly changed from remote prior exam and likely adenoma. Pancreas: Mildly atrophic. Kidneys/: Too small to characterize low attenuating cortical lesion upper pole right kidney, likely cyst. Uterus surgically absent. Ovaries either atrophic or also surgically absent. GI: Very small sliding-type hiatal hernia. No obstruction, gross wall thickening or surrounding inflammation. Appendix well-visualized and appears normal. Vessels/spaces/nodes: Minimal atherosclerosis. No adenopathy. No free fluid. No free gas. Bones/soft tissues: Disc and facet degenerative changes visualized spine, most pronounced and moderately severe at lumbosacral junction. IMPRESSION: 1. No evidence of an acute intra-abdominal/pelvic process or other findings to explain patient's reported symptoms. 2. Chronic and/or benign-appearing changes detailed above. ED Course/Re-evaluation ED Course Patient is a 52-year-old female here with complaints of pain similar to her prior presentation diverticulitis. Patient was admitted for 2 days and was discharged on the and has been treated with Cipro and Flagyl. Patient was doing well until approximately 5:30 this morning when she had acute onset of pain, nausea, vomiting. Patient also complains of cough productive of yellow sputum. Chest x-ray showed no acute consolidations. Patient did have a mild leukocytosis, CT imaging of the abdomen showed no acute findings. Patient was advised to continue her current antibiotic regimen. Patient was given IV fluid bolus, Phenergan, Zofran for symptom management. I discussed the patient with Dr. donaldson with the hospitalist service who agreed that the patient would likely not benefit from admission at this time. 24-hour PCP follow-up recommended. Return precautions provided. Patient is given Phenergan suppositories, Percocet for outpatient treatment. Recommending gastroenterology follow-up if indicated. Repeat lactate was found to be in the normal range. There are no peritoneal signs on abdominal exam, no rebound or guarding. Decision to Disposition Date: Dec 02, 2018 Decision to Disposition Time: 12:30 Depart Departure Latest Vital Signs Vital Signs Date Time Temp Pulse Resp B/P (MAP) Pulse Ox O2 Delivery O2 Flow Rate FiO2 12/02/18 12:38 ??? 12/02/18 11:18 39 12/02/18 09:18 91 12/02/18 08:30 157/85 (109) 12/02/18 07:22 98.2 Room Air Impression: Primary Impression: Abdominal pain Additional Impression: Nausea & vomiting Condition: Improved Disposition: HOME OR SELF-CARE New Scripts Ondansetron 4 Mg Odt (ONDANSETRON 4 MG ODT) 4 Mg Tab.rapdis 4 MG PO ONCE, #20 TAB Prov: ELTON MADRID DO 12/02/18 Promethazine Hcl (PROMETHAZINE HCL) 25 Mg Supp.rect 25 MG RC Q8H, #12 SUPP.RECT Prov: ELTON MADRID DO 12/02/18 Patient Instructions: Abdominal Pain (ED) Additional Instructions: Please continue your medications as prescribed. Please drink plenty of water. You may take 1 Zofran orally as needed for nausea and vomiting every 4-6 hours, Phenergan one suppository rectally every 12 hours as needed for refractory nausea and vomiting. You may take Tylenol, ibuprofen as needed for primary pain control. Please follow-up with your family doctor the next 24-48 hours. Please return promptly if you develop blood in the urine or stools, blood in urine or vomit, difficulty breathing, chest pain, shortness breath, worsening abdominal pain, inability to tolerate oral intake, fevers, rash. Problem Qualifiers ELTON MADRID DO Dec 02, 2018 07:22
[2018-12-02] MEDS ORDERED: fentaNYL CITR 100 MCG/2 ML AMP IVP ONE (07:25)
[2018-12-02] MEDS ORDERED: NS(*) 0.9% 1000 ML BAG 1,000 ML IV ONE (07:25)
[2018-12-02] MEDS ORDERED: PROMETHAZINE 25 MG/ML 1 ML AMP IVP ONE ×2 (07:25→12:05)
[2018-12-02] MEDS ORDERED: IOPAMIDOL 76% 100 ML INFUS BTL 100 ML ONE (07:43)
[2018-12-02 08:18] LABS: PLATELET COUNT, AUTOMATED 233 K/uL (150-450)
[2018-12-02 08:29] LABS: INR 0.97
[2018-12-02 08:30] VITALS: BP 157/85
--- NOTE | 2018-12-02 09:22 | RADIOLOGY IMAGING REPORT ---
[place] [facility] [place] Pia Ang[place] : 1965 MR: [id number] V: [id number] EXAM DATE: ORDERING PHYSICIAN: ELTON MADRID TECHNOLOGIST: Location: [facility] Patient: Pia Angel : 1965 Visit/Account:[id number] Date of Sevice: 12/02/2018 CT ABDOMEN PELVIS W/ CON HISTORY: Abdominal pain, nausea and vomiting. TECHNIQUE: CT abdomen and pelvis with intravenous contrast. One of the following dose optimization techniques was utilized in the performance of this exam: Autom ated exposure control; adjustment of the mA and/or kV according to the patient's size; or use of an i terative reconstruction technique. Specific details can be referenced in the facility's radiology C T exam operational policy. CONTRAST: 75 mL Isovue-370 IV COMPARISON: 11/28/2018, 06/29/2016 FINDINGS: Visualized lung bases: Negative. Hepatobiliary: Negative. Spleen: Negative. Adrenals: Right unremarkable. 3.1 cm low but not fatty attenuating lesion left, not significantly c hanged from remote prior exam and likely adenoma. Pancreas: Mildly atrophic. Kidneys/: Too small to characterize low attenuating cortical lesion upper pole right kidney, likel y cyst. Uterus surgically absent. Ovaries either atrophic or also surgically absent. GI: Very small sliding-type hiatal hernia. No obstruction, gross wall thickening or surrounding inf lammation. Appendix well-visualized and appears normal. Vessels/spaces/nodes: Minimal atherosclerosis. No adenopathy. No free fluid. No free gas. Bones/soft tissues: Disc and facet degenerative changes visualized spine, most pronounced and modera tely severe at lumbosacral junction. IMPRESSION: 1. No evidence of an acute intra-abdominal/pelvic process or other findings to explain patient's rep orted symptoms. 2. Chronic and/or benign-appearing changes detailed above. Report Dictated By: Ravi Feliz MD at 12/02/2018 9:11 AM Report E-Signed By: Ravi Feliz MD at 12/02/2018 9:16 AM [id number]:[email or web address]
--- NOTE | 2018-12-02 09:26 | RADIOLOGY IMAGING REPORT ---
FACILITY: [facility] [place] PATIENT NAME: Pia Angel : 1965 MR: [id number] V: [id number] EXAM DATE: ORDERING PHYSICIAN: ELTON MADRID TECHNOLOGIST: Location: [facility] [place] Patient: Pia Angel : 1965 Visit/Account:[id number] Date of Sevice: 12/02/2018 Study: Single portable view of the chest. Indication: Common, nausea, vomiting Comparison study: April 09, 2016 Technique: Single AP view of the chest demonstrates no evidence of acute infiltrate. There is no evid ence of pleural effusion or pneumothorax. The mediastinal, cardiac, and diaphragmatic contours are un remarkable. IMPRESSION: Unremarkable chest. Report Dictated By: Gerson Mcdaniel at 12/02/2018 9:12 AM Report E-Signed By: Gerson Mcdaniel at 12/02/2018 9:21 AM WSN:[email or web address]
[2018-12-02] MEDS ORDERED: ONDANSETRON 4 MG/2 ML VIAL IVP ONE (09:30)
[2018-12-02] MEDS ORDERED: PROMETHAZINE HCL 25 MG TAB TH 2 TAB/BOTTLE PO ONE (11:10)
[2018-12-02] MEDS ORDERED: PROMETHAZINE HCL(*) 25 MG SUPP PR ONE ×3 (11:10→11:20)
[2018-12-02] MEDS ORDERED: oxyCODONE/ACETAMIN 5/325MG TH 2 TAB/BOTTLE PO ONE (11:10)
[2018-12-02] MEDS ORDERED: PROM25SU9 RC (12:34)
[2018-12-02] MEDS ORDERED: ONDA4TAB9 PO (12:34)
== END 2018-12-02 12:47 | disposition home or self-care (01) ==
LOC: ER 07:24
DX: R10.33 Periumbilical pain (principal); R11.2 Nausea with vomiting, unspecified
CPT/HCPCS: 36415; 71045; 74177; 81001; 83605; 83690; 83735; 85025; 85610; 85730; 96361; 96374; 96375; 99284; J2405; J2550; J3010; J7030; J8498; Q9967; 82040; 82247; 82310; 82374; 82435; 82565; 82947; 84075; 84132; 84155; 84295; 84450; 84460; 84520

== ENCOUNTER 2018-12-20 14:02 | Emergency (ER) | payer SELFPAY ==
[2017-12-22 10:53] VITALS: Wt 93.0 kg
[2018-12-20 14:08] VITALS: BP 131/69
--- NOTE | 2018-12-20 14:27 | ER Report ---
History and Physical Time Seen By MD: 14:22 Hx. of Stated Complaint: PATIENT HAS PAIN TO THE LOWER RIGHT ARM FOR 1 MONTH. TRIED TO GRAB PURSE WHEN IT WAS FALLING AND THE PAIN BECAME MUCH WORSE HPI/ROS CHIEF COMPLAINT: Right forearm pain HISTORY OF PRESENT ILLNESS: Patient is a 53-year-old female with complaint of right forearm pain. She states that she has "tendinitis to that forearm and is dealing with symptoms for the last month. She states that about a month ago she had a heavy tray fall on the lateral epicondyle aspect of the right forearm. She's had some discomfort and pain since then and is followed by physical therapy and stated that she has a tendinitis. She states that on December 18 she was at [employer] and went to catch her purse that was falling and now is having significant pain to the right forearm. She states that twisting motions like opening up a jar placing the epicondyles directly on table cause pain and numbness. She is having frequent strength to that right arm. Allergies: Coded Allergies: No Known Drug Allergies (Unverified , 11/23/18) Home Meds Active Scripts Ondansetron 4 Mg Odt (ONDANSETRON 4 MG ODT) 4 Mg Tab.rapdis, 4 MG PO ONCE, #20 TAB Prov:ELTON MADRID DO 12/02/18 Promethazine Hcl (PROMETHAZINE HCL) 25 Mg Supp.rect, 25 MG RC Q8H, #12 SUPP.RECT Prov:ELTON MADRID DO 12/02/18 Metronidazole (METRONIDAZOLE) 500 Mg Tablet, 500 MG PO TID, #27 TAB Prov:POLO MALONE MD 11/30/18 Ciprofloxacin 500 Mg Tab (CIPROFLOXACIN 500 MG TAB) 500 Mg Tablet, 500 MG PO BIDAC, #18 TAB Prov:POLO MALONE MD 11/30/18 Pantoprazole Sodium (PANTOPRAZOLE SODIUM) 40 Mg Tablet.dr, 40 MG PO BID for 30 Days, #60 TAB.SR Prov:ELTON MADRID DO 11/23/18 Methimazole (METHIMAZOLE) 10 Mg Tablet, 5 MG PO SuTuThSa@2100 for 30 Days, Prov:RUBI FLORES MD 12/24/17 Methimazole (METHIMAZOLE) 10 Mg Tablet, 10 MG PO MoWeFr@2100 for 30 Days, Prov:RUBI FLORES MD 12/24/17 Reported Medications Multivitamin (One-Daily Multi-Vitamin) 1 Each Tablet, 1 CAP QDAY 05/13/18 Gabapentin (GABAPENTIN) 300 Mg Capsule, 300 MG PO TID, CAPSULE 12/21/17 Trazodone Hcl (TRAZODONE HCL) 50 Mg Tablet, 150 MG PO QHS 12/21/17 Cholecalciferol (Vitamin D3) (VITAMIN D) 1,000 Unit Capsule, 1000 UNIT PO QDAY, CAPSULE 09/05/16 Melatonin (MELATONIN) 3 Mg Tablet.er, 3 MG PO QHS 09/05/16 Past Medical/Surgical History History of diverticulitis Hx Smoking: Yes (1PPD X 35) Smoking Status: Current: Every Day Smoker Hx Substance Use Disorder: No Hx Alcohol Use: Yes (RARE) Constitutional Vital Sign - Last 24 Hours 12/20/18 14:08 Temp 97.5 Pulse 98 Resp 16 B/P (MAP) 131/69 Pulse Ox 90 O2 Delivery Room Air Physical Exam General appearance: alert no distress Right hand: There is no significant swelling. There is no obvious deformity to the hand. There is moderate tenderness of the 5th metacarpal. There is no snuff box tenderness. Skin: Intact Neurologic exam: The patient has normal sensation distal to the injury. Tendon function is intact. Vascular exam: Normal pulses and capillary refill in the fingers. Negative de Quervain's sign [ ] DIFFERENTIAL DIAGNOSIS: After history and physical exam differential diagnosis was considered for hand injury including contusion, fracture, ligamentous and tendon injuries. Medical Decision Making EKG/Imaging Imaging FACILITY: [facility] [place] PATIENT NAME: Pia Angel : 1965 MR: [id number] V: [id number] EXAM DATE: ORDERING PHYSICIAN: ASA SAHU TECHNOLOGIST: Location: [facility] [place] Patient: Pia Angel : 1965 Visit/Account:[id number] Date of Sevice: 12/20/2018 Exam type: ELBOW 3 VIEW RIGHT, FOREARM RIGHT Indication: Pain Comparison: Elbow radiograph dated November 11, 2018 Findings: No evidence of fracture, dislocation, or acute osseous abnormality right elbow or forearm. No evidence of elbow joint effusion. There is no focal soft tissue abnormality. No evidence of radiopaque foreign body. Enthesopathic changes at the lateral epicondyles, stable IMPRESSION: 1. No acute osseous abnormality of the right elbow or forearm. Report Dictated By: Winston Mark MD at 12/20/2018 2:33 PM Report E-Signed By: Winston Mark MD at 12/20/2018 2:35 PM WSN:[id number] FACILITY: [facility] [place] PATIENT NAME: Pia Angel : 1965 MR: [id number] V: [id number] EXAM DATE: ORDERING PHYSICIAN: ASA SAHU TECHNOLOGIST: Location: [facility] [place] Patient: Pia Angel : 1965 Visit/Account:[id number] Date of Sevice: 12/20/2018 Exam type: ELBOW 3 VIEW RIGHT, FOREARM RIGHT Indication: Pain Comparison: Elbow radiograph dated November 11, 2018 Findings: No evidence of fracture, dislocation, or acute osseous abnormality right elbow or forearm. No evidence of elbow joint effusion. There is no focal soft tissue abnormality. No evidence of radiopaque foreign body. Enthesopathic changes at the lateral epicondyles, stable IMPRESSION: 1. No acute osseous abnormality of the right elbow or forearm. Report Dictated By: Winston Mark MD at 12/20/2018 2:33 PM Report E-Signed By: Winston Mrak MD at 12/20/2018 2:35 PM WSN:[id number] ED Course/Re-evaluation ED Course Suspect lateral epicondylitis with tendinitis. We will obtain x-ray of the forearm and right elbow. Patient was placed in a preformed thumb spica splint. Patient was reexamined after splint placement with good pulses and sensation Decision to Disposition Date: Dec 20, 2018 Decision to Disposition Time: 14:50 Depart Departure Latest Vital Signs Vital Signs Date Time Temp Pulse Resp B/P (MAP) Pulse Ox O2 Delivery O2 Flow Rate FiO2 12/20/18 14:08 97.5 98 16 131/69 90 Room Air Impression: Primary Impression: Lateral epicondylitis of elbow Condition: Condition Unchanged Disposition: HOME OR SELF-CARE Patient Instructions: Tennis Elbow (ED), Tennis Elbow Exercises (GEN) Additional Instructions: Wear your splint at nighttime for the next 2 weeks Motrin or Tylenol as directed for pain. After work you should ice her elbow for approximately 15 minutes Percocet 1 tablet every 4 hours as needed for pain; do not take while at work or when he need to feel awake ASA SAHU MD Dec 20, 2018 14:26
--- NOTE | 2018-12-20 14:41 | RADIOLOGY IMAGING REPORT ---
FACILITY: [facility] PATIENT NAME: Pia Angel : 1965 MR: [id number] V: [id number] EXAM DATE: ORDERING PHYSICIAN: ASA SAHU TECHNOLOGIST: Location: [facility] Patient: Pia Angel : 1965 Visit/Account:[id number] Date of Sevice: 12/20/2018 Exam type: ELBOW 3 VIEW RIGHT, FOREARM RIGHT Indication: Pain Comparison: Elbow radiograph dated November 11, 2018 Findings: No evidence of fracture, dislocation, or acute osseous abnormality right elbow or forearm. No evidence of elbow joint effusion. There is no focal soft tissue abnormality. No evidence of radiopaque foreign body. Enthesopathic changes at the lateral epicondyles, stable IMPRESSION: 1. No acute osseous abnormality of the right elbow or forearm. Report Dictated By: Winston Mark MD at 12/20/2018 2:33 PM Report E-Signed By: Winston Mark MD at 12/20/2018 2:35 PM WSN:[id number]
--- NOTE | 2018-12-20 14:41 | RADIOLOGY IMAGING REPORT ---
FACILITY: [facility] [place] PATIENT NAME: Pia Angel : 1965 MR: [id number] V: [id number] EXAM DATE: ORDERING PHYSICIAN: ASA SAHU TECHNOLOGIST: Location: [facility] [place] Patient: Pia Angel : 1965 Visit/Account:[id number] Date of Sevice: 12/20/2018 Exam type: ELBOW 3 VIEW RIGHT, FOREARM RIGHT Indication: Pain Comparison: Elbow radiograph dated November 11, 2018 Findings: No evidence of fracture, dislocation, or acute osseous abnormality right elbow or forearm. No evidence of elbow joint effusion. There is no focal soft tissue abnormality. No evidence of radiopaque foreign body. Enthesopathic changes at the lateral epicondyles, stable IMPRESSION: 1. No acute osseous abnormality of the right elbow or forearm. Report Dictated By: Winston Mark MD at 12/20/2018 2:33 PM Report E-Signed By: Winston Mark MD at 12/20/2018 2:35 PM WSN:[id number]
[2018-12-20] MEDS ORDERED: oxyCODONE/ACETAMIN 5/325MG TH 2 TAB/BOTTLE PO ONE (14:55)
== END 2018-12-20 15:08 | disposition home or self-care (01) ==
LOC: ER 14:16
DX: M77.11 Lateral epicondylitis, right elbow (principal); F17.210 Nicotine dependence, cigarettes, uncomplicated; Z79.899 Other long term (current) drug therapy
CPT/HCPCS: 99284

== ENCOUNTER 2018-12-26 07:30 | Inpatient (IN) | payer SELFPAY ==
[2017-12-22 10:53] VITALS: Ht 168.9 cm; Wt 95.3 kg
[~2018-12-26] VITALS: Ht 168.9 cm; Wt 95.3 kg
[2018-12-26] MEDS ORDERED: NS(*) 0.9% 1000 ML BAG 1,000 ML IV ONE ×3 (07:45→15:00)
[2018-12-26] MEDS ORDERED: PROMETHAZINE 25 MG/ML 1 ML AMP IM ONE (07:50)
--- NOTE | 2018-12-26 07:54 | ER Report ---
History and Physical Time Seen By MD: 07:40 Hx. of Stated Complaint: VOMITING SINCE 0500 HPI/ROS CHIEF COMPLAINT: Vomiting HISTORY OF PRESENT ILLNESS: 53-year-old female has frequent vomiting episodes. It is unclear what causes these. She requires frequent visits to the emergency department for relief. She is retching frequently on initial exam and complaint of abdominal pain. Patient states the vomiting starts followed by abdominal pain. Patient is unable to describe the pain further. She does state it is throughout her abdomen and has been constant for one hour. Patient does not have chest pain, trouble breathing, change in urination, diarrhea or constipation. Patient states she believes that Phenergan works for her. She does not have fever. REVIEW OF SYSTEMS: Constitutional: chills Eyes: No discharge. ENT: No sore throat. Cardiovascular: No chest pain, no palpitations. Respiratory: No cough, no shortness of breath. Gastrointestinal: above Genitourinary: No hematuria. Musculoskeletal: No back pain. Skin: No rashes. Neurological: No headache. Remainder of the 14 system rev: Yes Allergies: Coded Allergies: No Known Drug Allergies (Unverified , 12/26/18) Home Meds Active Scripts Ondansetron 4 Mg Odt (ONDANSETRON 4 MG ODT) 4 Mg Tab.rapdis, 4 MG PO ONCE, #20 TAB Prov:ELTON MADRID DO 12/02/18 Promethazine Hcl (PROMETHAZINE HCL) 25 Mg Supp.rect, 25 MG RC Q8H, #12 SUPP.RECT Prov:ELTON MADRID DO 12/02/18 Pantoprazole Sodium (PANTOPRAZOLE SODIUM) 40 Mg Tablet.dr, 40 MG PO BID for 30 Days, #60 TAB.SR Prov:ELTON MADRID DO 11/23/18 Methimazole (METHIMAZOLE) 10 Mg Tablet, 5 MG PO SuTuThSa@2100 for 30 Days, Prov:RUBI FLORES MD 12/24/17 Methimazole (METHIMAZOLE) 10 Mg Tablet, 10 MG PO MoWeFr@2100 for 30 Days, Prov:RUBI FLORES MD 12/24/17 Reported Medications Multivitamin (One-Daily Multi-Vitamin) 1 Each Tablet, 1 CAP QDAY 05/13/18 Gabapentin (GABAPENTIN) 300 Mg Capsule, 300 MG PO TID, CAPSULE 12/21/17 Trazodone Hcl (TRAZODONE HCL) 50 Mg Tablet, 150 MG PO QHS 12/21/17 Cholecalciferol (Vitamin D3) (VITAMIN D) 1,000 Unit Capsule, 1000 UNIT PO QDAY, CAPSULE 09/05/16 Melatonin (MELATONIN) 3 Mg Tablet.er, 3 MG PO QHS 09/05/16 Discontinued Scripts Metronidazole (METRONIDAZOLE) 500 Mg Tablet, 500 MG PO TID, #27 TAB Prov:POLO MALONE MD 11/30/18 Ciprofloxacin 500 Mg Tab (CIPROFLOXACIN 500 MG TAB) 500 Mg Tablet, 500 MG PO BIDAC, #18 TAB Prov:POLO MALONE MD 11/30/18 Reviewed Nurses Notes: Yes Old Medical Records Reviewed: Yes Hx Smoking: Yes (1PPD X 35) Smoking Status: Current: Every Day Smoker Hx Substance Use Disorder: No Hx Alcohol Use: Yes (RARE) Constitutional Vital Sign - Last 24 Hours 12/26/18 12/26/18 12/26/18 12/26/18 07:30 07:33 07:36 08:00 Pulse 68 90 69 Resp 16 B/P (MAP) 145/100 (115) 145/100 Pulse Ox 93 90 92 O2 Delivery Room Air 12/26/18 12/26/18 12/26/18 12/26/18 08:04 08:30 09:00 09:05 Pulse 78 112 B/P (MAP) 144/86 (105) 141/101 (114) Pulse Ox 93 94 12/26/18 12/26/18 12/26/18 12/26/18 09:10 09:40 09:50 10:00 Pulse 110 99 B/P (MAP) 172/77 (108) 182/94 (123) Pulse Ox 93 12/26/18 12/26/18 12/26/18 12/26/18 10:05 10:27 10:30 10:35 Pulse ??? 70 B/P (MAP) 144/78 (100) 154/94 (114) Pulse Ox 80 89 12/26/18 12/26/18 12/26/18 12/26/18 11:00 11:05 11:10 11:15 Pulse 58 74 58 B/P (MAP) 126/111 (116) Pulse Ox 91 88 94 12/26/18 12/26/18 12/26/18 7/12/19 12:15 12:19 12:30 12:35 Pulse 83 73 B/P (MAP) 154/102 (119) 146/71 (96) Pulse Ox 90 84 12/26/18 12/26/18 12/26/18 12/26/18 12:43 13:05 13:06 13:30 Pulse 88 54 B/P (MAP) 135/77 (96) 145/80 (101) Pulse Ox 89 94 12/26/18 12/26/18 12/26/18 12/26/18 13:35 14:00 14:05 14:35 Pulse 70 70 69 B/P (MAP) 129/71 (90) Pulse Ox 92 91 92 Physical Exam General Appearance: The patient is alert, has no immediate need for airway protection and no signs of toxicity. [ ] Eyes: Pupils equal and round no pallor or injection. ENT, Mouth: Mucous membranes are moist. Respiratory: There are no retractions, lungs are clear to auscultation. Cardiovascular: Regular rate and rhythm. no m/r/g Gastrointestinal: abdomen is soft, she has mild ttp throughout. Bowel sounds are diminished but present. Neurological: alert, no gross deficits Skin: Warm and dry, no rashes. Musculoskeletal: Extremities are nontender, nonswollen and have full range of motion. DIFFERENTIAL DIAGNOSIS: After history and physical exam differential diagnosis was considered for abdominal pain including but not limited to appendicitis, cholecystitis, gastritis and urinary tract infection. Medical Decision Making Data Points Result Diagram: 12/26/18 0812 12/26/18 0812 Laboratory Hematology Test 12/26/18 08:12 White Blood Count 9.8 k/uL (4.5-11.0) Red Blood Count 5.21 M/uL (4.17-5.56) Hemoglobin 15.0 g/dL (12.0-16.0) Hematocrit 43.8 % (34.0-47.0) Mean Corpuscular Volume 84.1 fL (80.0-96.0) Mean Corpuscular Hemoglobin 28.8 pg (26.0-33.0) Mean Corpuscular Hemoglobin Concent 34.3 g/dL (32.0-36.0) Red Cell Distribution Width 14.9 % (11.5-14.5) H Platelet Count 209 K/uL (150-450) Mean Platelet Volume 9.3 fL (7.2-11.1) Neutrophils (%) (Auto) 86.7 % (39.4-72.5) H Lymphocytes (%) (Auto) 9.1 % (17.6-49.6) L Monocytes (%) (Auto) 3.3 % (4.1-12.4) L Eosinophils (%) (Auto) 0.5 % (0.4-6.7) Basophils (%) (Auto) 0.4 % (0.3-1.4) Nucleated RBC Relative Count (auto) 0.0 /100WBC Neutrophils # (Auto) 8.5 K/uL (2.0-7.4) H Lymphocytes # (Auto) 0.9 K/uL (1.3-3.6) L Monocytes # (Auto) 0.3 K/uL (0.3-1.0) Eosinophils # (Auto) 0.0 K/uL (0.0-0.5) Basophils # (Auto) 0.0 K/uL (0.0-0.1) Nucleated RBC Absolute Count (auto) 0.00 K/uL Peripheral Blood Smear No Y/N Chemistry Test 12/26/18 08:12 Sodium Level 142 mmol/L (137-145) Potassium Level 3.7 mmol/L (3.5-5.0) Chloride Level 110 mmol/L (98-107) Carbon Dioxide Level 21 mmol/L (22-31) Blood Urea Nitrogen 9 mg/dl (7-18) Creatinine 0.60 mg/dl (0.52-1.04) Glomerular Filtration Rate Calc > 60.0 Random Glucose 141 mg/dl (75-110) Calcium Level 9.8 mg/dl (8.4-10.2) Total Bilirubin 0.3 mg/dl (0.2-1.3) Aspartate Amino Transf (AST/SGOT) 18 U/L (0-35) Alanine Aminotransferase (ALT/SGPT) 28 U/L (0-56) Alkaline Phosphatase 81 U/L (0-126) Total Protein 6.9 g/dl (6.3-8.2) Albumin 4.1 g/dl (3.5-5.0) Lipase 58 U/L (23-300) Toxicology Test 12/26/18 09:45 Urine Opiates Screen Negative Urine Barbiturates Screen Negative Ur Tricyclic Antidepressants Screen Negative Urine Phencyclidine Screen Negative Urine Amphetamines Screen Negative Urine Benzodiazepines Screen Negative Urine Cocaine Screen Negative Urine Cannabinoids Screen Negative Urinalysis Test 12/26/18 09:45 Urine Color Yellow Urine Clarity Cloudy Urine pH 7.0 pH (4.8-9.5) Urine Specific [place] 1.024 Urine Protein Negative mg/dL (NEGATIVE) Urine Glucose (UA) Negative mg/dL (NEGATIVE) Urine Ketones Negative mg/dL (NEGATIVE) Urine Blood Negative (NEGATIVE) Urine Nitrite Negative (NEGATIVE) Urine Bilirubin Negative (NEGATIVE) Urine Urobilinogen Negative mg/dL (0.2-1.9) Urine Leukocyte Esterase Negative (NEGATIVE) Urine RBC <1 /HPF (0-2/HPF) Urine WBC 1 /HPF (0-5/HPF) Urine Squamous Epithelial Cells Many /LPF (</=FEW) Urine Calcium Oxalate Crystals Moderate /HPF (NONE) Urine Bacteria Negative /HPF (NONE-FEW) Urine Mucus Few /HPF (NONE-FEW) EKG/Imaging EKG Interpretation 12 lead EKG: Rhythm: normal sinus rhythm Morrison: normal QRS: normal ST segments: normal NSR with sinus arrhythmia 12 lead EKG: Rhythm: sinus bradycardia rate 51 Morrison: normal QRS: normal ST segments: normal Monitor Interpretation: Normal Sinus Rhythm ED Course/Re-evaluation ED Course pt presents with vomiting followed by abdominal pain. Review of prior records shows multiple courses of diverticulitis. Will consider this, bowel obstruction, pancreatitis as possible causes. Despite multilpe attempts, unable to resolve symptoms. After considering multiple emergent etiologies, doubt acute abd or other emergent cause; more c/w cyclic vomiting, abdominal migraine, or other similar syndrome. Will admit for hydration, further management. Decision to Disposition Date: Dec 26, 2018 Decision to Disposition Time: 15:01 Depart Departure Latest Vital Signs Vital Signs Date Time Temp Pulse Resp B/P (MAP) Pulse Ox O2 Delivery O2 Flow Rate FiO2 12/26/18 14:35 69 92 12/26/18 14:00 129/71 (90) 12/26/18 07:36 16 Room Air Impression: Primary Impression: Intractable nausea and vomiting Condition: Condition Unchanged Disposition: Admitted from ER Problem Qualifiers Primary Impression: Intractable nausea and vomiting Vomiting type: unspecified Qualified Codes: R11.2 - Nausea with vomiting, unspecified ASA BOSWELL MD Dec 26, 2018 07:54
[2018-12-26 08:25] LABS: PLATELET COUNT, AUTOMATED 209 K/uL (150-450)
[2018-12-26] MEDS ORDERED: ONDANSETRON 4 MG/2 ML VIAL IVP ONE (08:50)
--- NOTE | 2018-12-26 09:04 | EKG ---
FACILITY: [facility] - [place] PATIENT NAME: KISHORE WEBBER : [id number] MR: [id number] V: [id number] EXAM DATE: ORDERING PHYSICIAN: ASA BOSWELL TECHNOLOGIST: Test Reason : electrolyte Blood Pressure : / mmHG Vent. Rate : 065 BPM Atrial Rate : 078 BPM P-R Int : 148 ms QRS Dur : 094 ms QT Int : 448 ms P-R-T Axes : 059 047 039 degrees QTc Int : 465 ms Sinus rhythm with premature atrial complexes Probable left atrial enlargement Nonspecific ST findings inferior leads Confirmed by EVELINA MALONE ([id number]) on 12/26/2018 2:11:24 PM Referred By: Confirmed By:EVELINA MALONE
[2018-12-26] MEDS ORDERED: HALOPERIDOL LACT 5 MG/ML VIAL IM ONE ×2 (09:15→14:05)
[2018-12-26] MEDS ORDERED: MORPHINE 4 MG/ML SDV IVP ONE (10:15)
[2018-12-26] MEDS ORDERED: diphenhydrAMINE 50 MG/ML VIAL IVP ONE (11:10)
[2018-12-26] MEDS ORDERED: METOCLOPRAMIDE 10 MG/2 ML SDV IVP ONE (11:10)
--- NOTE | 2018-12-26 12:47 | RADIOLOGY IMAGING REPORT ---
FACILITY: [facility] PATIENT NAME: Pia Angel : 1965 MR: [id number] V: [id number] EXAM DATE: ORDERING PHYSICIAN: AAS BOSWELL TECHNOLOGIST: Location: [facility] Patient: Pia Angel : 1965 Visit/Account:[id number] Date of Sevice: 12/26/2018 Study: ACUTE ABDOMEN SERIES 3 VIEW Indication: Pain Comparison study: November 28, 2018 Findings: Upright PA view of the chest and upright and supine views of the abdomen demonstrates no ev idence of pneumoperitoneum. There is no evidence of small bowel obstruction. The chest is unremarkable in appearance. IMPRESSION: Unremarkable exam Report Dictated By: Gerson Mcdaniel at 12/26/2018 12:39 PM Report E-Signed By: Gerson Mcdaniel at 12/26/2018 12:40 PM WSN:[id number]
--- NOTE | 2018-12-26 14:39 | EKG ---
FACILITY: [facility] - [place] PATIENT NAME: KISHORE WEBBER : [id number] MR: [id number] V: [id number] EXAM DATE: ORDERING PHYSICIAN: ASA BOSWELL TECHNOLOGIST: DAT Rcihmond Reason : QT Blood Pressure : / mmHG Vent. Rate : 051 BPM Atrial Rate : 051 BPM P-R Int : 146 ms QRS Dur : 094 ms QT Int : 476 ms P-R-T Axes : 050 049 037 degrees QTc Int : 438 ms Appears may be two competing atrial foci Decreased R wave progression anteriorly Nonspecific ST findings inferior leads Confirmed by EVELINA MALONE ([id number]) on 12/26/2018 2:45:21 PM Referred By: ANDREIA Confirmed By:EVELINA MALONE
[2018-12-26] MEDS ORDERED: GLYCOPYRROLATE 0.2MG/ML 1 ML INJ IVP ONE (15:35)
[2018-12-26 16:06] VITALS: BP 136/81
[2018-12-26] MEDS ORDERED: NS(*) 0.9% 1000 ML BAG 1,000 ML IV PRN (16:28)
[2018-12-26] MEDS ORDERED: PROMETHAZINE 25 MG/ML 1 ML AMP IVP PRN (16:30)
[2018-12-26] MEDS ORDERED: GLYCOPYRROLATE 0.2MG/ML 1 ML INJ IVP PRN (16:30)
[2018-12-26] MEDS ORDERED: ONDANSETRON 4 MG/2 ML VIAL IVP PRN (16:30)
[2018-12-26] MEDS ORDERED: KCL/NS* 20 MEQ/1000 ML PREMIX 1,000 ML IV PRN (17:00)
[2018-12-26] MEDS ORDERED: GABA-533 PO (17:08)
[2018-12-26] MEDS ORDERED: NICOTINE INH SYSTEM 10 MG/INH INH PRN (17:20)
--- NOTE | 2018-12-26 17:20 | History & Physical ---
History of Present Illness Chief Complaint Abdominal pain, nausea and vomiting. History of Present Illness The patient is a 53 year old female with PMH significant for cyclic vomiting (etiology unknown) who presents with sudden onset of nausea, vomiting and abdominal pain starting at 5 am this am. The patient was admitted to [facility] on November 23. CT of the abdomen/pelvis was unremarkable at that time. Her symptoms resolved without specific treatment. She was discharged and presented again on November 28 with recurrent symptoms. Repeat CT of the abdomen/pelvis showed possible mild diverticulitis. She was treated and her symptoms improved. She was discharged. On December 02, she presented to [facility] ER with recurrent symptoms and CT of the abdomen/pelvis was once again negative. The patient was not admitted. She then presented to the ER in [place] on December 04. She notes that a CT of the abdomen/pelvis was repeated and was negative. Per the external med history, the patient was discharged with Zofran and pantoprazole prescriptions. She states s he did fairly well from December 04 until this am when she had recurrence of her symptoms. She notes that her symptoms are exactly the same as her previous hospitalization. The patient states she has had some chills but no obvious fever. The pain is mid-abdomen, above her umbilicus, and radiates to her back. It is colicky and severe at times and then improves a bit. She has had intractable nausea and vomiting with this. Nothing makes the pain better. It is not positional. Nothing makes it worse. She has not tried to eat as she has no appetite. The patient states she does have a history of peptic ulcer disease in the past. She has had EGD in the remote past and colonoscopy in the more recent past but can't remember exact dates. She did have polyps removed during her colonoscopy. History Problems: (1) Lateral epicondylitis of elbow Status: Resolved (2) Bone spur of left foot Status: Chronic (3) Bone spur of right foot Status: Chronic (4) Hyperthyroidism Status: Chronic (5) Degenerative disc disease at L5-S1 level Status: Chronic (6) Hx of meningitis Status: Resolved (7) Avulsion fracture of medial malleolus Status: Acute (8) Right wrist fracture Status: Resolved (9) Calcaneal fracture Status: Resolved (10) Peptic ulcer disease Status: Chronic (11) Adrenal adenoma Status: Chronic (12) Migraines Status: Chronic (13) Dyssomnia Status: Chronic (14) COPD (chronic obstructive pulmonary disease) Status: Chronic (15) Colon cancer screening Status: Chronic Home Meds Active Scripts Ondansetron 4 Mg Odt (ONDANSETRON 4 MG ODT) 4 Mg Tab.rapdis, 4 MG PO ONCE, #20 TAB Prov:ELTON MADRID DO 12/02/18 Promethazine Hcl (PROMETHAZINE HCL) 25 Mg Supp.rect, 25 MG RC Q8H, #12 SUPP.RECT Prov:ELTON MADRID DO 12/02/18 Pantoprazole Sodium (PANTOPRAZOLE SODIUM) 40 Mg Tablet.dr, 40 MG PO BID for 30 D ays, #60 TAB.SR Prov:ELTON MADRID DO 11/23/18 Methimazole (METHIMAZOLE) 10 Mg Tablet, 5 MG PO SuTuThSa@2100 for 30 Days, Prov:RUBI FLORES MD 12/24/17 Methimazole (METHIMAZOLE) 10 Mg Tablet, 10 MG PO MoWeFr@2100 for 30 Days, Prov:RUBI FLORES MD 12/24/17 Reported Medications Gabapentin (GABAPENTIN) 600 Mg Tablet, 600 MG PO TID 12/26/18 Multivitamin (One-Daily Multi-Vitamin) 1 Each Tablet, 1 CAP QDAY 05/13/18 Trazodone Hcl (TRAZODONE HCL) 50 Mg Tablet, 150 MG PO QHS 12/21/17 Cholecalciferol (Vitamin D3) (VITAMIN D) 1,000 Unit Capsule, 1000 UNIT PO QDAY, CAPSULE 09/05/16 Melatonin (MELATONIN) 3 Mg Tablet.er, 3 MG PO QHS 09/05/16 Discontinued Reported Medications Gabapentin (GABAPENTIN) 300 Mg Capsule, 300 MG PO TID, CAPSULE 12/21/17 Discontinued Scripts Metronidazole (METRONIDAZOLE) 500 Mg Tablet, 500 MG PO TID, #27 TAB Prov:POLO MALONE MD 11/30/18 Ciprofloxacin 500 Mg Tab (CIPROFLOXACIN 500 MG TAB) 500 Mg Tablet, 500 MG PO BIDAC, #18 TAB Prov:POLO MALONE MD 11/30/18 Allergies: Coded Allergies: No Known Drug Allergies (Unverified , 12/26/18) Patient History: Patient reports no known family medical history. Other Social/Family Hx The patient is . She works at the [employer]. She is adopted and does not know her family history. Hx Smoking: Yes (1PPD X 35) Smoking Status: Current: Every Day Smoker Caffeine Intake: Coffee, Soda Caffeine/Cups Per Day: 2-3 cups per day Hx Alcohol Use: Yes (RARE) Hx Substance Use Disorder: No Social Drug Use: Never History of IV Drug Use: No Review of Systems All Systems Reviewed/Normal: Yes, Except as Noted Constitutional: Chills Gastrointestinal: Nausea, Vomiting, Abdominal Pain Exam Vital Signs Vital Signs Date Time Temp Pulse Resp B/P (MAP) Pulse Ox O2 Delivery O2 Flow Rate FiO2 12/26/18 16:06 92 Room Air 12/26/18 16:06 99.9 70 16 136/81 (99) General Appearance: Alert, Awake, Other (Appears to be uncomfortable.) Neuro: No Gross deficits Cardiovascular: Regular Rate and Rhythm Respiratory: Clear to Auscultation GI: Other (Abdomen is soft. BS are positive. She is tender above the umbilicus without palpable mass. No obvious organomegaly.) Lymph: Cervical Nodes Benign Extremities: Warm, Perfused Integumentary: Skin Intact without Lesion / Mass Psych: Appropriate Mood & Affect Medical Decision Making Data Points Result Diagram: 12/26/18 0812 12/26/18 0812 Item Value Date Time Erythrocyte Sedimentation Rate 15 mm/HOUR 12/26/18 1643 Lactate 1.7 mmol/L 12/26/18 1643 C-Reactive Protein < 0.5 mg/dl 12/26/18 1643 Calcium Level 9.8 mg/dl 12/26/18 0812 Total Bilirubin 0.3 mg/dl 12/26/18 0812 Aspartate Amino Transf (AST/SGOT) 18 U/L 12/26/18 0812 Alanine Aminotransferase (ALT/SGPT) 28 U/L 12/26/18 0812 Alkaline Phosphatase 81 U/L 12/26/18 0812 Total Protein 6.9 g/dl 12/26/18 0812 Albumin 4.1 g/dl 12/26/18 0812 Lipase 58 U/L 12/26/18 0812 Urine Opiates Screen Negative 12/26/18 0945 Urine Barbiturates Screen Negative 12/26/1845 Ur Tricyclic Antidepressants Screen Negative 12/26/18 0945 Urine Phencyclidine Screen Negative 12/26/18 0945 Urine Amphetamines Screen Negative 12/26/18 0945 Urine Benzodiazepines Screen Negative 12/26/18 0945 Urine Cocaine Screen Negative 12/26/18 0945 Urine Cannabinoids Screen Negative 12/26/18 09 Urine Color Yellow 12/26/18 0945 Urine Clarity Cloudy 12/26/18 0945 Urine pH 7.0 pH 12/26/18 0945 Urine Specific [place] 1.024 12/26/18 0945 Urine Protein Negative mg/dL 12/26/18 0945 Urine Glucose (UA) Negative mg/dL 12/26/18 09 Urine Ketones Negative mg/dL 12/26/18 0945 Urine Blood Negative 12/26/18 0945 Urine Nitrite Negative 12/26/18 0945 Urine Bilirubin Negative 12/26/18 0945 Urine Urobilinogen Negative mg/dL 12/26/18 0945 Urine Leukocyte Esterase Negative 12/26/18 0945 Urine RBC <1 /HPF 12/26/18 0945 Urine WBC 1 /HPF 12/26/18 0945 Urine Squamous Epithelial Cells Many /LPF H 12/26/18 0945 Urine Calcium Oxalate Crystals Moderate /HPF 12/26/18 0945 Urine Bacteria Negative /HPF 12/26/18 0945 Urine Mucus Few /HPF 12/26/18 0945 EKG / Imaging EKG Interpretation FACILITY: [facility] PATIENT NAME: PIA WEBBER : [id number] MR: [id number] V: [id number] EXAM DATE: ORDERING PHYSICIAN: ASA BOSWELL TECHNOLOGIST: Test Reason : electrolyte Blood Pressure : / mmHG Vent. Rate : 065 BPM Atrial Rate : 078 BPM P-R Int : 148 ms QRS Dur : 094 ms QT Int : 448 ms P-R-T Axes : 059 047 039 degrees QTc Int : 465 ms Sinus rhythm with premature atrial complexes Probable left atrial enlargement Nonspecific ST findings inferior leads Confirmed by EVELINA MALONE ([id number]) on 12/26/2018 2:11:24 PM Referred By: Confirmed By:EVELINA MALONE 0849 T: ASHLEY/ FACILITY: [facility] PATIENT NAME: PIA WEBBER : [id number] MR: [id number] V: [id number] EXAM DATE: ORDERING PHYSICIAN: ASA BOSWELL TECHNOLOGIST: DAT [place] Reason : QT Blood Pressure : / mmHG Vent. Rate : 051 BPM Atrial Rate : 051 BPM P-R Int : 146 ms QRS Dur : 094 ms QT Int : 476 ms P-R-T Axes : 050 049 037 degrees QTc Int : 438 ms Appears may be two competing atrial foci Decreased R wave progression anteriorly Nonspecific ST findings inferior leads Confirmed by EVELINA MALONE ([id number]) on 12/26/2018 2:45:21 PM Referred By: ANDREIA Confirmed By:EVELINA MALONE [id number] T: [facility]/ Imaging FACILITY: [facility] PATIENT NAME: Pia Webber : 1965 MR: [id number] V: [id number] EXAM DATE: [id number] ORDERING PHYSICIAN: ASA BOSWELL TECHNOLOGIST: Location: [facility] Patient: Pia Webber : 1965 Visit/Account:[id number] Date of Sevice: 12/26/2018 Study: ACUTE ABDOMEN SERIES 3 VIEW Indication: Pain Comparison study: November 28, 2018 Findings: Upright PA view of the chest and upright and supine views of the abdomen demonstrates no evidence of pneumoperitoneum. There is no evidence of small bowel obstruction. The chest is unremarkable in appearance. IMPRESSION: Unremarkable exam Report Dictated By: Gerson Mcdaniel at 12/26/2018 12:39 PM Report E-Signed By: Gerson Mcdaniel at 12/26/2018 12:40 PM [id number] Pre-Admit Course ED Medications Please see ER record. Multiple medications given. Medical Record Review: Yes Assessment and Plan Problems: (1) Abdominal pain Status: Acute Assessment & Plan: Recurrent. She had a negative KUB in the ER. Her WBC is normal. ESR and CRP are normal. Lactate is normal. Lipase is normal. She has had 4 CTs of the abdomen/pelvis since November 23. Will continue to monitor and recheck labs in the am. If her symptoms persist, may need to reconsider ordering a CT in the am. Will continue IV fluids, antiemetics and antispasmodics prn. (2) Intractable nausea and vomiting Status: Acute Assessment & Plan: She has had recurrent episodes. None of the antiemetics help significantly. Will hydrate and continue promethazine and Zofran prn. (3) COPD (chronic obstructive pulmonary disease) Status: Chronic Assessment & Plan: Currently continues to smoke 1 ppd. She is on no specific medications. (4) Hyperthyroidism Status: Chronic Assessment & Plan: She takes methimazole. Will hold for now as she is NPO. Time Spent on Plan of Care: < 30 min Copies to: MALENA MONTANO MD ; Venous Thromboembolism Antithrombotics Is Pt On Any Antithrombotics?: Yes (Enoxaprin ordered) Exam Sepsis Risk: No Definite Risk Problem Qualifiers (1) Intractable nausea and vomiting: Vomiting type: unspecified Qualified Codes: R11.2 - Nausea with vomiting, unspecified POLO MALONE MD Dec 26, 2018 17:20
[2018-12-26 20:13] VITALS: BP 150/90
[2018-12-26] MEDS ORDERED: PANTOPRAZOLE SOD 40 MG IV VIAL IVP SCH (21:00)
[2018-12-26 23:23] VITALS: BP 104/61
[2018-12-27 02:57] VITALS: BP 151/71
[2018-12-27 06:23] LABS: PLATELET COUNT, AUTOMATED 201 K/uL (150-450)
[2018-12-27 07:31] VITALS: BP 149/68
--- NOTE | 2018-12-27 08:51 | Medical Nutrition Therapy ---
Nutrition Anthropometrics Height (Inches): 66.50 Height (Calculated Centimeters: 168.511835 Weight (Pounds): 210 Weight (Calculated Kilograms): 95.254 Garry Nutrition Score: Adequate Garry Nutrition Risk Score: 22 Dietary Referral Nutrition Risk Factors: Nutrition Risk Comment: Physical Findings Physical Appearance: Obese BMI 30-39 Skin Appearance Skin Appearance: Edema Edema Location Modifier: Edema Location: Type of Edema: Degree of Edema: Gastrointestinal Symptoms GI Symtoms: Nausea, Vomiting Tube Present: Bowel Sounds: Recent Bowel Pattern: Stool Characteristics: Nutritional Diagnosis Nutritional Risk Acuity 2: V/D > 3 Days, GI Malabsorption Nutritional Risk Acuity 3: Nausea, GERD Nutritional Risk Acuity 4: Modified Diet Past Medical History: GERD, hiatal hernia, COPD, migraines, hyperthyroid-Grave's, lipoma, anemia, lumbar strain, fibroids, bone spurs, ovarian cyst, degenerative arthritis, adrenal adenoma, pneumonia, wrist fracture, meningitis, degenerative disc disease, fracture of medial malleolus, calcaneal fracture, dyssomnia PUD, hysterectomy, tubal ligation, tobacco use Nutritional Acuity: 2-Moderate Nutrition Diagnosis: Inadequate Food Intake Nutrition Etiology: Malabsorption/Intolerance Nutrition Problem/Etiology/Sym: Inadequate food intake as related to malabsorption/intolerance as evidenced by intractable N/V Energy Requirement: 2101 (M St Jeor X 1.1 X 1.2) Protein Requirement: 76 (0.8 g proten/kg) Fluid Requirement: 2101 (1mL/kcal) Diet Type: NPO (Nothing by Mouth) Nutrition Monitoring & Eval Nutritional Goals Comment: Progress from NPO to LIGIA as tolerated Nutrition Monitoring: Currently NPO RD Patient Assessment Time: [address] Assessment Type: RD Assessment Patient Nutrition Acuity: 2-Moderate Follow Up Date: Dec 29, 2018 Nutritional Comment: Pt admitted with abdominal pain and N/V. Dx with intractable N/V. During past admission it was determined pt may have diverticulosis. Px has extensive medical hx. Currently NPO day 1. Taking enoxaparin. Random glucose ranged from 117-141. Total protein of 6.2 is decreased. BUN of 6 and creatinine of 0.50 are decreased. Monitor for progression of diet as condition improves. -UMAIR KOVACS Dec 27, 2018 08:51
[2018-12-27] MEDS ORDERED: ENOXAPARIN 40 MG/0.4ML SYR SC SCH (09:00)
--- NOTE | 2018-12-27 09:15 | Hospitalist Depart ---
Discharge Summary Reason for Hosp/Final Diag: (1) Abdominal pain Status: Acute Hospital Course & Plan: She has had multiple admissions for recurrent nausea, vomiting, and abdominal pain. Her CT scans and lab studies have all been negative. Her symptoms are likely secondary to hyperthyroidism and methimazole. Consideration should be given to thyroid ablation. (2) Intractable nausea and vomiting Status: Acute Hospital Course & Plan: As above. (3) COPD (chronic obstructive pulmonary disease) Status: Chronic Hospital Course & Plan: Currently continues to smoke 1 ppd. She is on no sp ecific medications. (4) Hyperthyroidism Status: Chronic Hospital Course & Plan: She is on chronic treatment with methimazole, but may do better with ablation as above. Departure Latest Vital Signs Laboratory Tests Test 12/26/18 09:45 12/26/18 16:43 12/27/18 05:50 Urine Color Yellow Urine Clarity Cloudy Urine pH 7.0 pH Urine Specific [place] 1.024 Urine Protein Negative mg/dL Urine Glucose (UA) Negative mg/dL Urine Ketones Negative mg/dL Urine Blood Negative Urine Nitrite Negative Urine Bilirubin Negative Urine Urobilinogen Negative mg/dL Urine Leukocyte Esterase Negative Urine RBC <1 /HPF Urine WBC 1 /HPF Urine Squamous Epithelial Cells Many /LPF Urine Calcium Oxalate Crystals Moderate /HPF Urine Bacteria Negative /HPF Urine Mucus Few /HPF Urine Opiates Screen Negative Urine Barbiturates Screen Negative Ur Tricyclic Antidepressants Screen Negative Urine Phencyclidine Screen Negative Urine Amphetamines Screen Negative Urine Benzodiazepines Screen Negative Urine Cocaine Screen Negative Urine Cannabinoids Screen Negative Erythrocyte Sedimentation Rate 15 mm/HOUR Lactate 1.7 mmol/L C-Reactive Protein < 0.5 mg/dl White Blood Count 11.5 k/uL Red Blood Count 4.81 M/uL Hemoglobin 13.7 g/dL Hematocrit 40.1 % Mean Corpuscular Volume 83.5 fL Mean Corpuscular Hemoglobin 28.6 pg Mean Corpuscular Hemoglobin Concent 34.2 g/dL Red Cell Distribution Width 15.0 % Platelet Count 201 K/uL Mean Platelet Volume 9.9 fL Neutrophils (%) (Auto) 80.2 % Lymphocytes (%) (Auto) 13.7 % Monocytes (%) (Auto) 5.7 % Eosinophils (%) (Auto) 0.1 % Basophils (%) (Auto) 0.3 % Nucleated RBC Relative Count (auto) 0.1 /100WBC Neutrophils # (Auto) 9.2 K/uL Lymphocytes # (Auto) 1.6 K/uL Monocytes # (Auto) 0.7 K/uL Eosinophils # (Auto) 0.0 K/uL Basophils # (Auto) 0.0 K/uL Nucleated RBC Absolute Count (auto) 0.01 K/uL Sodium Level 138 mmol/L Potassium Level 3.0 mmol/L Chloride Level 105 mmol/L Carbon Dioxide Level 21 mmol/L Blood Urea Nitrogen 6 mg/dl Creatinine 0.50 mg/dl Glomerular Filtration Rate Calc > 60.0 Random Glucose 117 mg/dl Calcium Level 9.2 mg/dl Total Bilirubin 0.6 mg/dl Aspartate Amino Transf (AST/SGOT) 27 U/L Alanine Aminotransferase (ALT/SGPT) 33 U/L Alkaline Phosphatase 72 U/L Total Protein 6.2 g/dl Albumin 3.6 g/dl Lipase 28 U/L Current Medications Medications (Trade) Dose Ordered Sig/Cisco Route PRN Reason Start Time Stop Time Status Last Admin Dose Admin Sodium Chloride 1,000 ml @ 0 mls/hr Q0M ONCE IV 12/26/18 07:45 12/26/18 07:46 DC 12/26/18 07:58 Promethazine HCl (Phenergan (*) 25 Mg/ml 1 ml Amp (Or Equiv)) 25 mg ONCE ONCE IM 12/26/18 07:50 12/26/18 07:51 DC 12/26/18 07:58 Ondansetron HCl (Zofran(*) 4 Mg/ 2 ml(Or Equiv)) 8 mg ONCE ONCE IVP 12/26/18 08:50 12/26/18 08:51 DC 12/26/18 08:50 Haloperidol Lactate (Haldol(*) 5 Mg/ ml Vial (Or Equiv)) 2.5 mg ONCE ONCE IM 12/26/18 09:15 12/26/18 09:16 DC 12/26/18 09:21 Morphine Sulfate (Morphine Sulfate(*) 4 Mg/ ml Sdv) 4 mg ONCE ONCE IVP 12/26/18 10:15 12/26/18 10:16 DC 12/26/18 10:24 Diphenhydramine HCl (Benadryl(*) 50 Mg/ml Vial (Or Equiv)) 25 mg ONCE ONCE IVP 12/26/18 11:10 12/26/18 11:11 DC 12/26/18 11:28 Metoclopramide HCl (Reglan(*) 10 Mg/ 2 ml Sdv (Or Equiv)) 10 mg ONCE ONCE IVP 12/26/18 11:10 12/26/18 11:11 DC 12/26/18 11:45 Sodium Chloride 1,000 ml @ 0 mls/hr Q0M ONCE IV 12/26/18 11:10 12/26/18 11:11 DC 12/26/18 11:26 Haloperidol Lactate (Haldol(*) 5 Mg/ ml Vial (Or Equiv)) 2.5 mg ONCE ONCE IM 12/26/18 14:05 12/26/18 14:06 DC 12/26/18 14:24 Sodium Chloride 1,000 ml @ 125 mls/hr Q8H ONCE IV 12/26/18 15:00 12/26/18 22:59 DC 12/26/18 15:42 Glycopyrrolate (Robinul 0.2 Mg/ ml 1 ml (Or Equiv)) 0.2 mg ONCE ONCE IVP 12/26/18 15:35 12/26/18 15:36 DC 12/26/18 15:42 Sodium Chloride 1,000 ml @ 100 mls/hr Q10H PRN IV RUN CONTINUOUSLY FOR HYDRATION 12/26/18 16:28 01/25/19 16:27 Ondansetron HCl (Zofran(*) 4 Mg/ 2 ml(Or Equiv)) 4 mg Q4H PRN IVP NAUSEA/VOMITING 12/26/18 16:30 01/25/19 16:29 Enoxaparin Sodium (Lovenox 40 Mg/ 0.4 ml Syr (Or Equiv)) 40 mg Q24H SC 12/27/18 09:00 01/26/19 08:59 Glycopyrrolate (Robinul 0.2 Mg/ ml 1 ml (Or Equiv)) 0.1 mg Q6H PRN IVP SPASMS 12/26/18 16:30 01/25/19 16:29 Promethazine HCl (Phenergan (*) 25 Mg/ml 1 ml Amp (Or Equiv)) 25 mg Q6H PRN IVP NAUSEA 12/26/18 16:30 01/25/19 16:29 Pantoprazole Sodium (Protonix 40 Mg Iv Vial (*) (Or Equiv)) 40 mg Q12H IVP 12/26/18 21:00 01/25/19 20:59 12/26/18 18:46 Potassium Chloride/Sodium Chloride 1,000 ml @ 100 mls/hr Q10H PRN IV prn 12/26/18 17:00 01/25/19 16:59 12/27/18 03:39 Nicotine (Nicotrol Inhaler 10 Mg/Inh (Or Equiv)) 10 mg PRN PRN INH nicotine withdrawal 12/26/18 17:20 01/25/19 17:19 Weight (Pounds): 210 Result Diagram: 12/27/18 0550 12/27/18 0550 Condition: Improved Discharge: Home, Self Care Discharge Instructions Home Meds Active Scripts Ondansetron 4 Mg Odt (ONDANSETRON 4 MG ODT) 4 Mg Tab.rapdis, 4 MG PO ONCE, #20 TAB Prov:ELTON MADRID DO 12/02/18 Promethazine Hcl (PROMETHAZINE HCL) 25 Mg Supp.rect, 25 MG RC Q8H, #12 SUPP.RECT Prov:ELTON MADRID DO 12/02/18 Pantoprazole Sodium (PANTOPRAZOLE SODIUM) 40 Mg Tablet.dr, 40 MG PO BID for 30 Days, #60 TAB.SR Prov:ELTON MADRID DO 11/23/18 Methimazole (METHIMAZOLE) 10 Mg Tablet, 5 MG PO SuTuThSa@2100 for 30 Days, Prov:RUBI FLORES MD 12/24/17 Methimazole (METHIMAZOLE) 10 Mg Tablet, 10 MG PO MoWeFr@2100 for 30 Days, Prov:RUBI FLORES MD 12/24/17 Reported Medications Gabapentin (GABAPENTIN) 600 Mg Tablet, 600 MG PO TID 12/26/18 Multivitamin (One-Daily Multi-Vitamin) 1 Each Tablet, 1 CAP QDAY 05/13/18 Trazodone Hcl (TRAZODONE HCL) 50 Mg Tablet, 150 MG PO QHS 12/21/17 Cholecalciferol (Vitamin D3) (VITAMIN D) 1,000 Unit Capsule, 1000 UNIT PO QDAY, CAPSULE 09/05/16 Melatonin (MELATONIN) 3 Mg Tablet.er, 3 MG PO QHS 09/05/16 Discontinued Reported Medications Gabapentin (GABAPENTIN) 300 Mg Capsule, 300 MG PO TID, CAPSULE 12/21/17 Discontinued Scripts Metronidazole (METRONIDAZOLE) 500 Mg Tablet, 500 MG PO TID, #27 TAB Prov:POLO MALONE MD 11/30/18 Ciprofloxacin 500 Mg Tab (CIPROFLOXACIN 500 MG TAB) 500 Mg Tablet, 500 MG PO BIDAC, #18 TAB Prov:POLO MALONE MD 11/30/18 Diet: Regular Activity: As Tolerated Copies to: MALENA MONTANO MD ; Venous Thromboembolism Antithrombotics Is Pt On Any Antithrombotics?: Yes (Enoxaprin ordered) Problem Qualifiers (1) Intractable nausea and vomiting: Vomiting type: unspecified Qualified Codes: R11.2 - Nausea with vomiting, unspecified ALEXANDRIA RODRIGUEZ DO Dec 27, 2018 09:15
== END 2018-12-27 09:55 | disposition home or self-care (01) | DRG 392 ==
LOC: ER 07:41 → UNDOADMIN 15:21 → MED 15:21
PROVIDERS: ADMIT Internal Medicine; ATTEND Internal Medicine
DX: R11.2 Nausea with vomiting, unspecified (principal); T38.2X5A Adverse effect of antithyroid drugs, initial encounter; J44.9 Chronic obstructive pulmonary disease, unspecified; F17.210 Nicotine dependence, cigarettes, uncomplicated; E05.90 Thyrotoxicosis, unspecified without thyrotoxic crisis or storm
CPT/HCPCS: 32550; 36415; 74022; 80305; 81001; 82040; 82247; 82310; 82374; 82435; 82565; 82947; 83605; 83690; 84075; 84132; 84155; 84295; 84450; 84460; 84520; 85025; 85651; 86140; 93005; 96361; 96372; 96374; 96375; 99284; C9113; J1200; J1630; J2270; J2405; J2550; J2765; J3480; J3490; J7030